=== PATIENT | female | born 1935 | race Caucasian/White ===

== ENCOUNTER → 2016-10-05 | Outpatient (CLI) | payer MEDICARE ==
[2016-10-05 14:53] VITALS: BP 182/82; PULSE 75; RESP 16; TEMP 97.6
--- NOTE | 2016-10-05 15:10 | P.PN ---
Progress Note - Text Patient returns for followup for chronic right-sided low back pain with radiation to right leg down to the ankle with some numbness and shooting pains. Patient underwent bilateral RFA in late 2014 and got excellent relief from those procedures, but pain is now returning. Patient continues on Tylenol and NSAIDs medications for pain with good relief. Patient denies adverse drug effects from medications. Today, pt denies new-onset weakness, bowel/bladder incontinence, or any other signs or symptoms of cauda equina syndrome. There are no signs of acute intoxication, and no indications of medication diversion or overuse. In addition to above, 13-point review of systems is also negative for chest pain , shortness of breath, changes in vision, changes in hearing, new onset weakness , abdominal pain, diarrhea, extreme fatigue, malaise, fever, skin changes, homicidal or suicidal ideation, or bowel or bladder incontinence. 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 At the L4-L5 and L5-S1 levels there are postsurgical changes from laminectomy with severe neural foraminal stenosis compressing and compression of the exiting nerve roots at the L4-L5 level with severe stenosis of the right neural foramen at the L5-S1 level with compression of the exiting right L5 nerve root. Assessment: 1. lumbar spondylosis without myelopathy 2. chronic pain syndrome 3. SIJ dysfunction Plan: 1. Explanation: Opioid and psychological risk scores were reviewed. Diagnoses , prognoses, and multiple treatment options including but not limited to physical therapy, interventional therapies, adjuvant medical therapies, narcotic medication therapies, and surgery were discussed with the patient and all questions were answered to the patient's satisfaction. 2. Opioid agreement: no opioids prescribed today 3. Counseling: The patient was counseled extensively on BODY MASS INDEX, EXERCISE. Specifically, the patient was instructed regarding the importance of weight control, and exercise in the context of both chronic pain and overall health. 4. Procedures: R lumbar RFA only, then consider caudal BROOKS vs. right sided TFESI for L5 level 5. Consultations: None 6. Investigations: None 7. Medications: none prescribed 8. Disposition: f/u for procedure as scheduled PQRS measures: 1-Patient's medications are documented in the chart. 2-Tobacco use is negative 3-Patient has not had a pneumococcal vaccine. 4-Advanced care planning discussed, patient unable to give. 5-Opioid contract NOT signed with the patient as no opioids given. 6-Pain positive, follow-up visit or procedure scheduled 7-Patient's blood pressure measured and documented, and patient will follow up with the primary care due to hypertension. 8-Patient's weight was measured, and body mass index ABOVE the normal limits, and counseling was done. Patient instructed to follow up with PCP. 9-Patient WAS NOT identified as an unhealthy alcohol user.
== END | disposition home or self-care (01) ==
LOC: PNWHC3 14:27
PROVIDERS: ATTEND Anesthesiology
DX: M47.816 Spondylosis without myelopathy or radiculopathy, lumbar region (principal); G89.4 Chronic pain syndrome; M53.88 Other specified dorsopathies, sacral and sacrococcygeal region; M48.06 Spinal stenosis, lumbar region; I10 Essential (primary) hypertension; Z79.899 Other long term (current) drug therapy
CPT/HCPCS: 99211

== ENCOUNTER 2019-12-11 13:05 | Inpatient (IN) | payer MEDICARE ==
[2019-12-11] MEDS: DONEPEZIL 10 MG TAB PO SCH (23:30)
[2019-12-11] MEDS: HEPARIN SODIUM,PORCINE 5,000 UNIT/ML 1 ML VIAL SQ SCH (23:30)
[2019-12-11] MEDS: SODIUM CHLORIDE 0.9% 1,000 ML IV SCH (23:39)
[2019-12-12] MEDS: LEVOTHYROXINE 75 MCG TAB PO SCH ×2 (06:22→11:44)
[2019-12-12 07:21] LABS: Basophils # (A) 0.1 k/uL (0-0.2); Basophils % (A) 1 %; Eosinophils # (A) 0.2 k/uL (0-0.7); Eosinophils % (A) 2 %; HCT 26.6 % (34.0-46.0); HGB 8.2 gm/dL (11.4-16.0); Hypochromasia Slight; Lymphocytes # (A) 0.8 k/uL (1.0-4.8); Lymphocytes % (A) 7 %; MCHC 30.9 g/dL (31.0-37.0); Mean Platelet Volume 8.5; Monocytes # (A) 0.6 k/uL (0-1.0); Monocytes % (A) 5 %; Neutrophils # (A) 9.1 k/uL (1.3-7.7); Neutrophils % (A) 83 %; Platelet Count 356 k/uL (150-450); RBC 2.75 m/uL (3.80-5.40); RDW 13.9 % (11.5-15.5); WBC 10.9 k/uL (3.8-10.6)
[2019-12-12 07:37] LABS: Calcium 7.1 mg/dL (8.4-10.2); Potassium 4.7 mmol/L (3.5-5.1)
[2019-12-12 07:41] LABS: INR 0.9 (<1.2); Prothrombin Time 9.6 sec (9.0-12.0)
[2019-12-12] MEDS: HEPARIN SODIUM,PORCINE 5,000 UNIT/ML 1 ML VIAL SQ SCH ×2 (08:15→23:04)
--- NOTE | 2019-12-12 08:23 | XR ---
EXAMINATION TYPE: XR chest 2V DATE OF EXAM: 12/12/2019 COMPARISON: Prior chest x-ray 12/11/2019 HISTORY: Pneumonia, abnormal chest x-ray TECHNIQUE: Frontal and lateral views of the chest are obtained. FINDINGS: Findings are similar to prior exam, bibasilar increased attenuation is present and may be increased on the right. The left hemidiaphragm is obscured, blunting of the left costophrenic angle i s noted. Heart appears enlarged although patient is rotated which makes accentuate appearance. There is no evident pneumothorax. Mild prominence of interstitium noted. There are overlying cardiac leads. IMPRESSION: Basilar atelectasis versus pneumonia or edema and congestive failure, possible small ass ociated effusion, cardiomegaly
[2019-12-12] MEDS ORDERED: FAMOTIDINE 20 MG/2 ML VIAL IV SCH (09:00)
[2019-12-12] MEDS ORDERED: MECLIZINE 12.5 MG TAB PO PRN (09:51)
[2019-12-12] MEDS: GABAPENTIN 100 MG CAP PO SCH ×3 (10:11→23:04)
[2019-12-12] MEDS: METOPROLOL TARTRATE 25 MG TAB PO SCH ×2 (10:11→23:03)
[2019-12-12] MEDS: NIFEdipine XL 30 MG TAB.ER.24 PO SCH (10:11)
[2019-12-12] MEDS: AZITHROMYCIN 500 MG in SODIUM CHLORIDE 0.9% 250 ML IVPB SCH (10:11)
--- NOTE | 2019-12-12 10:51 | P.HPIM ---
History of Present Illness 84-year-old pleasant female was transferred from [facility] where she presented with worsening weakness. Patient denied any significant cough doesn't have any fever did have leukocytosis was diagnosed with pneumonia because of some mild infiltrate in the right lower lung mccracken patient was started on antibiotics was subsequently admitted to the hospital patient is found to be in renal failure with serum creatinine of 3.9. Upon further questioning patient was diagnosed with chronic kidney disease in month of March patient was told she has GFR of around 26 which has worsened by month of May. Although do not have her baseline available at this time patient was started on IV fluids with some improvement in serum creatinine patient is being continued on these IV fluids patient chest x-ray did show atelectasis, there is a concern about pulmonary edema as well as left and a BNP level. This elevated will obtain echocardiogram. Patient is presently receiving IV fluids and closely monitor. She also has a fracture in the right forearm for which patient has stabilizing cast which was put in on November 29 Review of Systems REVIEW OF SYSTEMS: CONSTITUTIONAL: As mentioned in HPI HEENT: No recent visual problems or hearing problems. Denied any sore throat. CARDIOVASCULAR: No chest pain, orthopnea, PND, no palpitations, no syncope. PULMONARY: No shortness of breath, no cough, no hemoptysis. GASTROINTESTINAL: No diarrhea, no nausea, no vomiting, no abdominal pain. NEUROLOGICAL: No headaches, no weakness, no numbness. HEMATOLOGICAL: Denies any bleeding or petechiae. GENITOURINARY: Denies any burning micturition, frequency, or urgency. MUSCULOSKELETAL/RHEUMATOLOGICAL: Denies any joint pain, swelling, or any muscle pain. ENDOCRINE: Denies any polyuria or polydipsia. The rest of the 14-point review of systems is negative. Past Medical History Past Medical History: Hypertension, Rheumatoid Arthritis (RA), Thyroid Disorder Additional Past Medical History / Comment(s): Pt fell 11/11/14 & Fx left wrist..has cast on History of Any Multi-Drug Resistant Organisms: None Reported Past Surgical History: Appendectomy, Back Surgery, Heart Catheterization, Hernia Repair, Joint Replacement, Orthopedic Surgery, Tonsillectomy Additional Past Surgical History / Comment(s): Left knee replacement , Rt Inguinal Hernia, BACK SURGERY- SPURS REMOVED Past Anesthesia/Blood Transfusion Reactions: No Reported Reaction Past Psychological History: Anxiety Smoking Status: Never smoker Past Alcohol Use History: Rare Additional Past Alcohol Use History / Comment(s): occ. beer Past Drug Use History: None Reported - Past Family History Sister(s) Family Medical History: Cancer Additional Family Medical History / Comment(s): ONE SISTER LUNG CA-ANOTHER SISTER LEUKEMIA ,SISTER HAD BREAST & BOWEL CA Brother(s) Family Medical History: Cancer Additional Family Medical History / Comment(s): ONE BROTHER LIVER CA- ANOTHER BROTHER BONE CA Medications and Allergies Home Medications Medication Instructions Recorded Confirmed Type Donepezil [Aricept] 10 mg PO HS 10/15/14 12/11/19 History Levothyroxine Sodium [Synthroid] 112.5 mcg PO SUWE 10/05/16 12/11/19 History Calcium Carbonate/Vitamin D3 1 tab PO DAILY 10/28/16 12/11/19 History [Calcium 600-Vit D3 400 Tablet] Gabapentin [Neurontin] 300 mg PO TID 10/28/16 12/11/19 History Multivitamins, Thera [Multivitamin 1 tab PO DAILY 10/28/16 12/11/19 History (formulary)] Levothyroxine Sodium [Synthroid] 75 mcg PO MOTUTHFRSA 12/11/19 12/11/19 History Meclizine HCl 12.5 mg PO DAILY PRN 12/11/19 12/11/19 History Metoprolol Tartrate [Lopressor] 12.5 mg PO BID 12/11/19 12/11/19 History NIFEdipine XL [Procardia XL] 30 mg PO BID 12/11/19 12/11/19 History diphenhydrAMINE HCL 25 mg PO DAILY PRN 12/11/19 12/11/19 History hydrALAZINE HCL [Apresoline] 50 mg PO TID 12/12/19 12/12/19 History Allergies Allergy/AdvReac Type Severity Reaction Status Date / Time No Known Allergies Allergy Verified 10/28/16 12:09 Physical Exam Vitals: Vital Signs Temp Pulse Resp BP Pulse Ox 12/12/19 08:00 97.4 F L 87 16 145/61 96 12/12/19 03:52 78 18 12/12/19 03:51 97.4 F L 78 18 122/60 90 L 12/12/19 00:00 98.0 F 75 18 120/58 92 L 12/11/19 22:06 97.9 F 76 18 119/59 93 L 12/11/19 22:00 75 18 Intake and Output 12/11/19 12/12/19 12/12/19 22:59 06:59 14:59 Intake Total 375 Output Total 50 Balance 375 -50 Intake: Intake, IV Titration 375 Amount Sodium Chloride 0.9% 1, 375 000 ml @ 75 mls/hr IV . [id number] [facility] Rx#:[id number] Output: Emesis 50 Other: Voiding Method Toilet Toilet # Voids 1 1 Weight 48.988 kg 51.1 kg PHYSICAL EXAMINATION: GENERAL: The patient is alert and oriented x3, not in any acute distress. Well developed, well nourished. HEENT: Pupils are round and equally reacting to light. EOMI. No scleral icterus. No conjunctival pallor. Normocephalic, atraumatic. No pharyngeal erythema. No thyromegaly. CARDIOVASCULAR: S1 and S2 present. No murmurs, rubs, or gallops. PULMONARY: Chest is clear to auscultation, no wheezing or crackles. ABDOMEN: Soft, nontender, nondistended, normoactive bowel sounds. No palpable organomegaly. MUSCULOSKELETAL: No joint swelling or deformity. EXTREMITIES: No cyanosis, clubbing, or pedal edema. NEUROLOGICAL: Gross neurological examination did not reveal any focal deficits. SKIN: No rashes. Results CBC & Chem 7: 12/12/19 06:51 12/12/19 06:51 Labs: Abnormal Lab Results - Last 24 Hours (Table) 12/12/19 12/12/19 Range/Units 06:51 06:51 WBC 10.9 H (3.8-10.6) k/uL RBC 2.75 L (3.80-5.40) m/uL Hgb 8.2 L (11.4-16.0) gm/dL Hct 26.6 L (34.0-46.0) % MCHC 30.9 L (31.0-37.0) g/dL Neutrophils # 9.1 H (1.3-7.7) k/uL Lymphocytes # 0.8 L (1.0-4.8) k/uL Sodium 136 L (137-145) mmol/L Chloride 110 H (98-107) mmol/L Carbon Dioxide 16 L (22-30) mmol/L BUN 53 H (7-17) mg/dL Creatinine 3.49 H (0.52-1.04) mg/dL Glucose 123 H (74-99) mg/dL Calcium 7.1 L (8.4-10.2) mg/dL AST 51 H (14-36) U/L Thrombosis Risk Factor Assmnt - Choose All That Apply Any of the Below Risk Factors Present?: No Other Risk Factors: Yes Each Risk Factor Represents 3 Points: Age 75 years or older Other congenital or acquired thrombophilia - If yes, enter type in comment: No Thrombosis Risk Factor Assessment Total Risk Factor Score: 3 Thrombosis Risk Factor Assessment Level: Moderate Risk Assessment and Plan Plan: -Generalized weakness and tiredness: Unsure of the exact etiology probably can be related to worsening renal failure. Nephrology was consulted continue with IV fluids -Chronic kidney disease: Patient appears to have stage IV chronic disease from her history etiology is not known at this time -Possibly acute renal failure: Continue with IV fluids -Chest x-ray findings of possible pulmonary edema I'll obtain a BNP was elevated obtain echocardiogram patient clinically at this point of time does not appear to be in heart failure exacerbation is low possibility of pneumonia infectious disease was consulted yesterday to leave the decision of creation of antibiotics to ID -Falls: Secondary to generalized weakness and is related muscle atrophy -Hyperthyroidism -hypertension -Peripheral neuropathy: Etiology is back pain -DVT prophylaxis with heparin
--- NOTE | 2019-12-12 11:58 | XR ---
Right wrist HISTORY: Wrist fracture 4 views the right wrist Distal diaphyseal right radial fracture is noted in cast, there is anatomic alignment. Suspect some l ocal sclerosis, periosteal reaction consistent with fracture healing. Bone mineralization is reduced. Arthropathy noted in the right wrist and hand. IMPRESSION: Orthopedic follow-up.
[2019-12-12] MEDS: SODIUM CHLORIDE 0.9% 1,000 ML IV SCH (12:42)
--- NOTE | 2019-12-12 12:59 | P.CNOR ---
History of Present Illness - [facility] Consult date: 12/12/19 Consult reason: fracture History of present illness: Patient is an 84-year-old female who was transferred to [facility] from [facility] for multiple lab abnormalities and severe fatigue and muscle weakness. She was admitted under internal medicine, multiple medical specialties having consulted. It was noted she had a splint on her right forearm, she explained that she had a fracture involving the forearm that occurred after a fall on November 28. Our orthopedic team was then consult. Patient was evaluated today at bedside, she is resting comfortably. She has had a couple bouts of nausea and vomiting since being admitted. Her forearm she states feeling better with the splint that's currently in place. She states that she did see an orthopedic doctor in his office and was placed in that splint after the fall. She has another follow-up scheduled next week with him. She has no other orthopedic complaints at this time. Review of Systems Constitutional: Reports as per HPI Past Medical History Past Medical History: Hypertension, Rheumatoid Arthritis (RA), Thyroid Disorder Additional Past Medical History / Comment(s): Pt fell 11/11/14 & Fx left wrist..has cast on History of Any Multi-Drug Resistant Organisms: None Reported Past Surgical History: Appendectomy, Back Surgery, Heart Catheterization, Hernia Repair, Joint Replacement, Orthopedic Surgery, Tonsillectomy Additional Past Surgical History / Comment(s): Left knee replacement , Rt Inguinal Hernia, BACK SURGERY- SPURS REMOVED Past Anesthesia/Blood Transfusion Reactions: No Reported Reaction Past Psychological History: Anxiety Smoking Status: Never smoker Past Alcohol Use History: Rare Additional Past Alcohol Use History / Comment(s): occ. beer Past Drug Use History: None Reported - Past Family History Sister(s) Family Medical History: Cancer Additional Family Medical History / Comment(s): ONE SISTER LUNG CA-ANOTHER SISTER LEUKEMIA ,SISTER HAD BREAST & BOWEL CA Brother(s) Family Medical History: Cancer Additional Family Medical History / Comment(s): ONE BROTHER LIVER CA- ANOTHER BROTHER BONE CA Medications and Allergies Home Medications Medication Instructions Recorded Confirmed Type Donepezil [Aricept] 10 mg PO HS 10/15/14 12/11/19 History Levothyroxine Sodium [Synthroid] 112.5 mcg PO SUWE 10/05/16 12/11/19 History Calcium Carbonate/Vitamin D3 1 tab PO DAILY 10/28/16 12/11/19 History [Calcium 600-Vit D3 400 Tablet] Gabapentin [Neurontin] 300 mg PO TID 10/28/16 12/11/19 History Multivitamins, Thera [Multivitamin 1 tab PO DAILY 10/28/16 12/11/19 History (formulary)] Levothyroxine Sodium [Synthroid] 75 mcg PO MOTUTHFRSA 12/11/19 12/11/19 History Meclizine HCl 12.5 mg PO DAILY PRN 12/11/19 12/11/19 History Metoprolol Tartrate [Lopressor] 12.5 mg PO BID 12/11/19 12/11/19 History NIFEdipine XL [Procardia XL] 30 mg PO BID 12/11/19 12/11/19 History diphenhydrAMINE HCL 25 mg PO DAILY PRN 12/11/19 12/11/19 History hydrALAZINE HCL [Apresoline] 50 mg PO TID 12/12/19 12/12/19 History Allergies Allergy/AdvReac Type Severity Reaction Status Date / Time No Known Allergies Allergy Verified 10/28/16 12:09 Physical Examination Right upper extremity: Long-arm posterior splint is in good position and condition with Noman bandage fixation. Minimal soft tissue swelling present in the hand. Sensation to light touch both distal and proximal to the splinter intact. She is able to wiggle all fingers with no difficulty. No significant tenderness with palpation throughout the distal radius and proximal forearm. Results - Labs Labs: Abnormal Lab Results - Last 24 Hours (Table) 12/12/19 12/12/19 Range/Units 06:51 06:51 WBC 10.9 H (3.8-10.6) k/uL RBC 2.75 L (3.80-5.40) m/uL Hgb 8.2 L (11.4-16.0) gm/dL Hct 26.6 L (34.0-46.0) % MCHC 30.9 L (31.0-37.0) g/dL Neutrophils # 9.1 H (1.3-7.7) k/uL Lymphocytes # 0.8 L (1.0-4.8) k/uL Sodium 136 L (137-145) mmol/L Chloride 110 H (98-107) mmol/L Carbon Dioxide 16 L (22-30) mmol/L BUN 53 H (7-17) mg/dL Creatinine 3.49 H (0.52-1.04) mg/dL Glucose 123 H (74-99) mg/dL Calcium 7.1 L (8.4-10.2) mg/dL AST 51 H (14-36) U/L H & H 12/12/19 Range/Units 06:51 Hgb 8.2 L (11.4-16.0) gm/dL Hct 26.6 L (34.0-46.0) % Coagulation 12/12/19 Range/Units 06:51 INR 0.9 (<1.2) Result Diagrams: 12/12/19 06:51 12/12/19 06:51 - Diagnostic results Wrist/Hand x-ray: report reviewed (X-rays were done of the right wrist that i ncluded most of the forearm. X-rays demonstrate a minimally displaced distal third ulnar shaft fracture), image reviewed Assessment and Plan Assessment: Minimally displaced distal third ulnar shaft fracture Multiple medical comorbidities Plan: I was able to discuss the case, including with physical exam findings and imaging studies maintain Dr. Shi. No orthopedic surgical intervention recommended at this time Continue use of the posterior arm splint at this time. Avoid excessive use of the right upper extremity Patient follow-up with the orthopedic surgeon in [place] after discharge Recommend icing along with [id number] we will be available for any further questions regarding patient, thank you for the consult Time with Patient: Less than 30
--- NOTE | 2019-12-12 18:00 | ECHOF ---
Referral Reason:Congestive heart failure MEASUREMENTS -------- HEIGHT: 149.9 cm WEIGHT: 48.5 kg BP: IVSd: 1.1 cm (0.6 - 1.1) LVIDd: 4.0 cm (3.9 - 5.3) LVPWd: 1.1 cm (0.6 - 1.1) EDV(Teich): 70 ml IVSs: 1.3 cm LVIDs: 3.2 cm LVPWs: 1.2 cm %IVS Thck: 17 % ESV(Teich): 41 ml EF(Teich): 41 % %FS: 20 % SV(Teich): 28 ml LA Diam: 4.5 cm (2.7 - 3.8) LALs A4C: 4.5 cm LAAs A4C: 15.6 cm LAESV A-L A4C: 45 ml LAESV MOD A4C: 44 ml LALs A2C: 4.2 cm LAAs A2C: 13.2 cm LAESV A-L A2C: 36 ml LAESV MOD A2C: 34 ml LAESV(A-L): 42 ml LAESV Index (A-L): 29.90 ml/m Ao Diam: 2.8 cm (2.0 - 3.7) LA Diam: 4.1 cm (2.7 - 3.8) AV Cusp: 1.5 cm (1.5 - 2.6) EPSS: 0.6 cm MV E Fadi: 1.05 m/s MV DecT: 224 ms MV Dec Mcduffie: 4.7 m/s MV A Fadi: 1.32 m/s MV E/A Ratio: 0.80 MV PHT: 65 ms TR Vmax: 1.19 m/s TR maxP.66 mmHg RAP: 5.00 mmHg RVSP: 10.66 mmHg MV EF SLOPE: 37.61 mm/s (70 - 150) MV EXCURSION: 15.62 mm (> 18.000) FINDINGS -------- Sinus rhythm. This was a technically good study. The left ventricular size is normal. There is mild concentric left ventricular hypertrophy. Overa ll left ventricular systolic function is normal with, an EF between 55 - 60 %. The diastolic fillin g pattern is normal for the age of the patient 19.78. The right ventricle is normal in size. The left atrium is mildly dilated. LA is midly dilated 29-33ml/m2. The right atrial size is normal. The aortic valve is trileaflet, and appears structurally normal. No aortic stenosis or regurgitation. Mild mitral regurgitation is present. Mild tricuspid regurgitation present. Right ventricular systolic pressure is normal at < 35 mmHg. There is no pulmonic regurgitation present. The aortic root size is normal. Echo free space represents a pericardial fat pad. CONCLUSIONS -------- 1. The left ventricular size is normal. 2. There is mild concentric left ventricular hypertrophy. 3. Overall left ventricular systolic function is normal with, an EF between 55 - 60 %. 4. The diastolic filling pattern is normal for the age of the patient 19.78 5. The right ventricle is normal in size. 6. The left atrium is mildly dilated. 7. LA is midly dilated 29-33ml/m2. 8. The right atrial size is normal. 9. Mild mitral regurgitation is present. 10. Mild tricuspid regurgitation present. 11. Echo free space represents a pericardial fat pad. LIMEROCK TOWER LOADER: Kyra Sauceda RDCS
--- NOTE | 2019-12-12 19:07 | CONS ---
CONSULTATION REASON FOR CONSULT: Renal failure. HISTORY OF PRESENT ILLNESS: Patient is an 84-year-old female with history of CKD, NKF stage 4, who follows with a zigzag appliquer in [place]. The patient was admitted to the hospital as a transfer from [place]. She states that she was feeling weak and complains of nausea and vomiting. She had decreased oral intake. The patient denied any fever or chills. No abdominal pain. Patient states that she started seeing a zigzag appliquer in March of 2019, at which time her GFR was about 31 mL/minute; and when she was last seen in May, her GFR had declined to about 26 mL/minute. No recent changes in medications. When patient was admitted to [place], her serum creatinine was noted to be 3.7 mg/dL, and this morning it is at 3.49. The patient is maintained on IV fluids. She has not had any significant diarrhea. PAST MEDICAL HISTORY: Hypertension, CKD, rheumatoid arthritis, hypothyroidism. PAST SURGICAL HISTORY: Appendectomy, back surgery, cardiac catheterization, left knee arthroplasty, right inguinal hernia repair, tonsillectomy. SOCIAL HISTORY: Negative for smoking, drug abuse or alcohol abuse. MEDICATIONS: Medications prior to admission included Synthroid, Aricept, vitamin D, Neurontin, Lopressor, Procardia, hydralazine, diphenhydramine. ALLERGIES: NONE. PHYSICAL EXAMINATION: Patient is currently comfortable, awake, not in any acute distress. Blood pressure was 145/61, heart rate 87 per minute. Patient is afebrile. EXAMINATION OF THE HEART: S1 and S2. EXAMINATION OF LUNGS: Bilateral breath sounds are heard. ABDOMEN: Soft, non-tender. Examination of lower extremities shows no significant edema. FINANCIAL RECRUITER exam is grossly intact. Patient has a cast on her right forearm. LABS: Labs show sodium 136, potassium 4.7, chloride 110. CO2 is 16. BUN 53, creatinine 3.49, hemoglobin 8.2 g/dL. ProBNP 6880. ASSESSMENT: 1. Acute kidney injury on top of chronic kidney disease, mostly prerenal. Continue with IV fluids. 2. Chronic kidney disease, stage 4. 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 I will repeat another urinalysis. Given her advanced age, I am not sure if she will benefit from a kidney biopsy. Patient will need to follow up with her primary zigzag appliquer. She has an appointment in December. 3. Metabolic acidosis, non gap, mostly associated with renal failure. Will add oral sodium bicarb. 4. Chronic kidney disease, stage 4. Etiology not clear. Check UA. Quantify proteinuria if persistent and follow up with primary zigzag appliquer. 5. Nausea and decreased oral intake. Low suspicion for uremia. However, if renal function does not improve and patient's symptoms persist, we may need to consider subtle uremia. 6. Possible pneumonia, maintained on antibiotics. 7. Fracture, right forearm, of the third ulnar shaft, currently in an arm splint. PLAN: Continue IV fluids. Repeat labs in a.m. Add oral sodium bicarb. Check UA and urine/protein/creatinine ratio. Thank you for this consultation. Will continue to follow the patient with you during her hospitalization. MMODL / IJN: [id number] /
--- NOTE | 2019-12-12 22:32 | P.CONS ---
History of Present Illness - Reason for Consult Consult date: 12/12/19 Gram-negative bacteremia Requesting physician: Cody E Sheet - Chief Complaint Generalized weakness and nausea x few days - History of Present Illness Patient is 84 year female with a past medical history significant for chronic kidney disease stage IV in this patient presented to [facility] with complaint of generalized weakness and feeling nauseated and vomiting. No significant abdominal pain had did have decreased oral intake the patient denies having any fever or any chills no chest pain or shortness of breath or cough no diarrhea or significant urinary symptoms patient was evaluated at that facility and apparently she was noticed to have her creatinine is up to 3.7 compared chest x-ray was suggestive some infiltrate patient subsequently has been transferred to [facility] for further management at that time patient presented to this facility the blood culture that was done at [facility] were positive for gram-negative bacilli the patient has been started on Rocephin and infection disease was consulted for further management of antibiotic therapy patient overall is not a good historian so most information has been extracted from review the chart and talking to the nursing staff, patient also history of right wrist fracture currently being treated with a cast Review of Systems Positive point has been mentioned in the HPI rest of the systems are negative Past Medical History Past Medical History: Hypertension, Rheumatoid Arthritis (RA), Thyroid Disorder Additional Past Medical History / Comment(s): Pt fell 11/11/14 & Fx left wrist..has cast on History of Any Multi-Drug Resistant Organisms: None Reported Past Surgical History: Appendectomy, Back Surgery, Heart Catheterization, Hernia Repair, Joint Replacement, Orthopedic Surgery, Tonsillectomy Additional Past Surgical History / Comment(s): Left knee replacement , Rt Inguinal Hernia, BACK SURGERY- SPURS REMOVED Past Anesthesia/Blood Transfusion Reactions: No Reported Reaction Past Psychological History: Anxiety Smoking Status: Never smoker Past Alcohol Use History: Rare Additional Past Alcohol Use History / Comment(s): occ. beer Past Drug Use History: None Reported - Past Family History Sister(s) Family Medical History: Cancer Additional Family Medical History / Comment(s): ONE SISTER LUNG CA-ANOTHER SISTER LEUKEMIA ,SISTER HAD BREAST & BOWEL CA Brother(s) Family Medical History: Cancer Additional Family Medical History / Comment(s): ONE BROTHER LIVER CA- ANOTHER BROTHER BONE CA Medications and Allergies Home Medications Medication Instructions Recorded Confirmed Type Donepezil [Aricept] 10 mg PO HS 10/15/14 12/11/19 History Levothyroxine Sodium [Synthroid] 112.5 mcg PO SUWE 10/05/16 12/11/19 History Calcium Carbonate/Vitamin D3 1 tab PO DAILY 10/28/16 12/11/19 History [Calcium 600-Vit D3 400 Tablet] Gabapentin [Neurontin] 300 mg PO TID 10/28/16 12/11/19 History Multivitamins, Thera [Multivitamin 1 tab PO DAILY 10/28/16 12/11/19 History (formulary)] Levothyroxine Sodium [Synthroid] 75 mcg PO MOTUTHFRSA 12/11/19 12/11/19 History Meclizine HCl 12.5 mg PO DAILY PRN 12/11/19 12/11/19 History Metoprolol Tartrate [Lopressor] 12.5 mg PO BID 12/11/19 12/11/19 History NIFEdipine XL [Procardia XL] 30 mg PO BID 12/11/19 12/11/19 History diphenhydrAMINE HCL 25 mg PO DAILY PRN 12/11/19 12/11/19 History hydrALAZINE HCL [Apresoline] 50 mg PO TID 12/12/19 12/12/19 History Allergies Allergy/AdvReac Type Severity Reaction Status Date / Time No Known Allergies Allergy Verified 10/28/16 12:09 Physical Exam Vitals: Vital Signs Temp Pulse Resp BP Pulse Ox 12/12/19 08:00 97.4 F L 87 16 145/61 96 12/12/19 03:52 78 18 12/12/19 03:51 97.4 F L 78 18 122/60 90 L 12/12/19 00:00 98.0 F 75 18 120/58 92 L 12/11/19 22:06 97.9 F 76 18 119/59 93 L 12/11/19 22:00 75 18 Intake and Output 12/11/19 12/12/19 12/12/19 22:59 06:59 14:59 Intake Total 375 Output Total 50 Balance 375 -50 Intake: Intake, IV Titration 375 Amount Sodium Chloride 0.9% 1, 375 000 ml @ 75 mls/hr IV . [id number] [facility] Rx#:[id number] Output: Emesis 50 Other: Voiding Method Toilet Toilet # Voids 1 1 Weight 48.988 kg 51.1 kg GENERAL DESCRIPTION: An elderly female lying in bed, no distress. No tachypnea or accessory muscle of respiration use. HEENT: Shows Pallor , no scleral icterus. Oral mucous membrane is dry. No pharyngeal erythema or thrush NECK: Trachea central, no thyromegaly. LUNGS: Unlabored breathing. Decreased breath sounds at the base. No wheeze or crackle. HEART: S1, S2, regular rate and rhythm. No loud murmur ABDOMEN: Soft, no tenderness , guarding or rigidity, no organomegaly EXTREMITIES: No edema of feet. SKIN: No rash, no masses palpable. NEUROLOGICAL: The patient is awake, alert, oriented x2, mood and affect normal. Results CBC & Chem 7: 12/12/19 06:51 12/12/19 06:51 Labs: Abnormal Lab Results - Last 24 Hours (Table) 12/12/19 12/12/19 Range/Units 06:51 06:51 WBC 10.9 H (3.8-10.6) k/uL RBC 2.75 L (3.80-5.40) m/uL Hgb 8.2 L (11.4-16.0) gm/dL Hct 26.6 L (34.0-46.0) % MCHC 30.9 L (31.0-37.0) g/dL Neutrophils # 9.1 H (1.3-7.7) k/uL Lymphocytes # 0.8 L (1.0-4.8) k/uL Sodium 136 L (137-145) mmol/L Chloride 110 H (98-107) mmol/L Carbon Dioxide 16 L (22-30) mmol/L BUN 53 H (7-17) mg/dL Creatinine 3.49 H (0.52-1.04) mg/dL Glucose 123 H (74-99) mg/dL Calcium 7.1 L (8.4-10.2) mg/dL AST 51 H (14-36) U/L Assessment and Plan Assessment: 1- patient presented to the hospital with generalized weakness and nausea and vomiting decreased oral intake and this patient along with evidence of gram- negative bacteremia source is likely abdominal with a question of possible UTI versus gallbladder disease, clinically doubt pneumonia (1) Gram-negative bacteremia Current Visit: Yes Status: Acute Code(s): R78.81 - BACTEREMIA SNOMED Code(s): 219687844528 Plan: 1- blood cultures will be repeated and we'll try to get information from [facility] on status positive blood culture 2-check an ultrasound of the abdominal 3-Rocephin 2 g daily We will follow on clinical condition and cultures to further adjust medication if needed Thank you for this consultation will follow this patient with you Time with Patient: Greater than 30
[2019-12-12 22:34] LABS: Appearance,Urine Clear (Clear); Bacteria,Urine Rare /hpf; Bilirubin,Urine Negative (Negative); Blood,Urine Trace (Negative); Color,Urine Light Yellow; Glucose,Urine (UA) Negative (Negative); Hyaline Casts,Urine 1 /lpf (0-2); Ketones,Urine Negative (Negative); Leukocyte Esterase,Urine Moderate (Negative); Mucus,Urine Rare /hpf; Nitrite,Urine Negative (Negative); Protein,Urine 2+ (Negative); RBC,Urine 3 /hpf (0-5); Specific Gravity,Urine 1.009 (1.001-1.035); Squamous Epithelial Cell,Urine 1 /hpf (0-4); Urobilinogen,Urine <2.0 mg/dL (<2.0); WBC,Urine 10 /hpf (0-5)
[2019-12-12] MEDS: DONEPEZIL 10 MG TAB PO SCH (23:03)
[2019-12-12] MEDS: SODIUM BICARBONATE TAB 650 MG TAB PO SCH (23:04)
[2019-12-13] MEDS: LEVOTHYROXINE 75 MCG TAB PO SCH (06:22)
--- NOTE | 2019-12-13 08:27 | US ---
EXAMINATION TYPE: US abdomen complete DATE OF EXAM: 12/13/2019 COMPARISON: NONE CLINICAL HISTORY: gram negative bacteremia. EXAM MEASUREMENTS: Liver Length: 13.9 cm Gallbladder Wall: 0.9 cm CBD: 0.6 cm Spleen: 8.9 cm Right Kidney: 10.6 x 4.4 x 5.1 cm Left Kidney: 11.3 x 4.8 x 5.4 cm Pancreas: prominent duct at 0.4 cm Liver: cyst near gallbladder fossa measures 1.0 x 0.9 x 1.3. Gallbladder: area of gallbladder appears thickened wall with mass effect at superior portion measure s 1.9 x 1.9 cm, unclear whether this is part of gallbladder or separate. Evidence for sonographic Oakes's sign: No CBD: wnl Spleen: wnl Right Kidney: No hydronephrosis or masses seen Left Kidney: No hydronephrosis or masses seen Upper IVC: wnl Abd Aorta: wnl Incidental note is made of bilateral pleural effusions. IMPRESSION: 1. Gallbladder wall is markedly thickened measuring 9 mm correlate for cholecystitis. Mucosal lesion not excluded. 2. Hepatic cyst. 3. Mild prominence of the pancreatic duct.
[2019-12-13] MEDS: CALCIUM CARB-VIT D 500MG-200UN 1 EACH TAB PO SCH (08:50)
[2019-12-13] MEDS: GABAPENTIN 100 MG CAP PO SCH ×3 (08:50→21:53)
[2019-12-13] MEDS: METOPROLOL TARTRATE 25 MG TAB PO SCH ×2 (08:50→21:52)
[2019-12-13] MEDS: SODIUM BICARBONATE TAB 650 MG TAB PO SCH ×2 (08:50→21:52)
[2019-12-13] MEDS: NIFEdipine XL 30 MG TAB.ER.24 PO SCH (08:50)
[2019-12-13] MEDS: HEPARIN SODIUM,PORCINE 5,000 UNIT/ML 1 ML VIAL SQ SCH ×2 (08:51→21:53)
[2019-12-13] MEDS: AZITHROMYCIN 500 MG in SODIUM CHLORIDE 0.9% 250 ML IVPB SCH (08:54)
[2019-12-13 08:56] LABS: Basophils # (A) 0.1 k/uL (0-0.2); Basophils % (A) 1 %; Eosinophils # (A) 0.3 k/uL (0-0.7); Eosinophils % (A) 2 %; HCT 24.6 % (34.0-46.0); HGB 7.8 gm/dL (11.4-16.0); Lymphocytes # (A) 0.7 k/uL (1.0-4.8); Lymphocytes % (A) 6 %; MCH 30.3 pg (25.0-35.0); MCHC 31.7 g/dL (31.0-37.0); MCV 95.7 fL (80.0-100.0); Mean Platelet Volume 8.7; Monocytes # (A) 0.6 k/uL (0-1.0); Monocytes % (A) 5 %; Neutrophils # (A) 9.3 k/uL (1.3-7.7); Neutrophils % (A) 85 %; Platelet Count 410 k/uL (150-450); RBC 2.57 m/uL (3.80-5.40); RDW 13.8 % (11.5-15.5); WBC 10.9 k/uL (3.8-10.6)
[2019-12-13] MEDS ORDERED: FAMOTIDINE 20 MG TAB PO SCH (09:00)
[2019-12-13 09:05] LABS: Calcium 6.8 mg/dL (8.4-10.2); Potassium 4.3 mmol/L (3.5-5.1)
--- NOTE | 2019-12-13 10:14 | XR ---
EXAMINATION TYPE: XR chest 1V DATE OF EXAM: 12/13/2019 COMPARISON: 12/12/2019 HISTORY: Shortness of breath TECHNIQUE: Single frontal view of the chest is obtained. FINDINGS: Heart is enlarged and there is left lower lobe infiltrate and small bilateral effusions. C oarsened interstitium is seen. No sizable pneumothorax. Diffuse osteopenia right-sided rib deformitie s suggest previous fracture. No pneumothorax. Chronic deformity of the right humerus. IMPRESSION: 1. Stable left lower lobe infiltrate and small bilateral effusions. Mild venous congestion in the dif ferential diagnosis similar to the prior exam
--- NOTE | 2019-12-13 10:37 | P.PN ---
Subjective Patient was transferred from [facility] after patient presented there with nausea vomiting diarrhea was being treated for pneumonia although the evidence is not clear at and patient is later found to have bacteremia with the gram-negative bacilli, because of which abdominal ultrasound was often which showed cholecystitis and Gen. surgery was consulted. Patient also has acute renal failure and possibly chronic kidney disease patient was evaluated by nephrology and patient the creatinine did improve from 2.5-2.5 with IV fluids patient may have some component of acute tubular necrosis patient had an echocardiogram which is within normal limits. Patient had an elevated BNP Objective - Vital Signs Vital signs: Vital Signs Temp 98.0 F 12/13/19 03:38 Pulse 72 12/13/19 03:38 Resp 18 12/13/19 03:38 BP 134/63 12/13/19 03:38 Pulse Ox 93 L 12/13/19 03:38 Intake & Output 12/12/19 12/13/19 12/13/19 18:59 06:59 18:59 Intake Total 775 330 Output Total 50 325 Balance 725 5 Weight 53 kg Intake: IV 250 250 Azithromycin 500 mg In 250 250 Sodium Chloride 0.9% 250 ml @ 250 mls/hr IVPB DAILY [facility] Rx#:[id number] Intake, IV Titration 525 80 Amount Sodium Chloride 0.9% 1, 525 80 000 ml @ 75 mls/hr IV . [id number] [facility] Rx#:[id number] Output: Urine 325 Emesis 50 Other: Voiding Method Toilet Toilet # Voids 2 1 1 # Bowel Movements 0 - Exam PHYSICAL EXAMINATION: GENERAL: The patient is alert and oriented x3, not in any acute distress. Well developed, well nourished. HEENT: Pupils are round and equally reacting to light. EOMI. No scleral icterus. No conjunctival pallor. Normocephalic, atraumatic. No pharyngeal erythema. No thyromegaly. CARDIOVASCULAR: S1 and S2 present. No murmurs, rubs, or gallops. PULMONARY: Mild bilateral rhonchi was appreciated. ABDOMEN: Soft, nontender, nondistended, normoactive bowel sounds. No palpable organomegaly. MUSCULOSKELETAL: No joint swelling or deformity. EXTREMITIES: No cyanosis, clubbing, or pedal edema. NEUROLOGICAL: Gross neurological examination did not reveal any focal deficits. SKIN: No rashes. - Labs CBC & Chem 7: 12/13/19 08:08 12/13/19 08:08 Labs: Abnormal Lab Results - Last 24 Hours (Table) 12/12/19 12/12/19 12/12/19 Range/Units 06:51 22:11 22:11 WBC (3.8-10.6) k/uL RBC (3.80-5.40) m/uL Hgb (11.4-16.0) gm/dL Hct (34.0-46.0) % Neutrophils # (1.3-7.7) k/uL Lymphocytes # (1.0-4.8) k/uL Chloride (98-107) mmol/L Carbon Dioxide (22-30) mmol/L BUN (7-17) mg/dL Creatinine (0.52-1.04) mg/dL Glucose (74-99) mg/dL Calcium (8.4-10.2) mg/dL C-Reactive Protein 136.6 H (<10.0) mg/L Urine Protein 2+ H (Negative) Urine Blood Trace H (Negative) Ur Leukocyte Esterase Moderate H (Negative) Urine WBC 10 H (0-5) /hpf Urine Bacteria Rare H (None) /hpf Urine Mucus Rare H (None) /hpf U Random Total Protein 253 H (<12) mg/dL 12/13/19 12/13/19 Range/Units 08:08 08:08 WBC 10.9 H (3.8-10.6) k/uL RBC 2.57 L (3.80-5.40) m/uL Hgb 7.8 L (11.4-16.0) gm/dL Hct 24.6 L (34.0-46.0) % Neutrophils # 9.3 H (1.3-7.7) k/uL Lymphocytes # 0.7 L (1.0-4.8) k/uL Chloride 113 H (98-107) mmol/L Carbon Dioxide 19 L (22-30) mmol/L BUN 42 H (7-17) mg/dL Creatinine 2.57 H (0.52-1.04) mg/dL Glucose 101 H (74-99) mg/dL Calcium 6.8 L (8.4-10.2) mg/dL C-Reactive Protein (<10.0) mg/L Urine Protein (Negative) Urine Blood (Negative) Ur Leukocyte Esterase (Negative) Urine WBC (0-5) /hpf Urine Bacteria (None) /hpf Urine Mucus (None) /hpf U Random Total Protein (<12) mg/dL Assessment and Plan Plan: -Acute cholecystitis: Continue with Rocephin patient has gram-negative bacteremia, Gen. surgery was consulted for possible cholecystectomy -Sepsis secondary to gram-negative bacteremia will obtain repeat blood cultures in the -Chronic kidney disease: Patient appears to have stage IV chronic disease from her history etiology is not known at this time -Possibly acute renal failure: We'll azotemia along with possibly acute tubular necrosis improved with serum creatinine with IV fluids which will be continued -Rhonchi bilaterally: We'll repeat the chest x-ray make sure patient doesn't have any pulmonary edema because of the fluids -Falls: Secondary to generalized weakness and is related muscle atrophy along with the above-mentioned infection -Hyperthyroidism -hypertension -Peripheral neuropathy: Etiology is back pain -DVT prophylaxis with heparin
[2019-12-13] MEDS ORDERED: METOCLOPRAMIDE 5 MG/ML 2 ML VIAL IVP STA (11:35)
[2019-12-13] MEDS ORDERED: DARBEPOETIN ALFA 60 MCG/0.3 ML SYRINGE SQ SCH (12:00)
--- NOTE | 2019-12-13 12:01 | P.GSCN ---
History of Present Illness Consult date: 12/13/19 History of present illness: CHIEF COMPLAINT: Abdominal pain HISTORY OF PRESENT ILLNESS: This is a 84-year-old female with a known history of chronic kidney disease stage IV, hypertension, rheumatoid arthritis and hypothyroidism. She has also had prior history of appendectomy and hernia repair. She presented to [facility] with complaints of generalized weakness and feeling nauseated and vomiting. She had evidence of pneumonia. She had a positive blood culture with gram-negative bacilli and then was transferred to [facility]. Patient does report some right upper abdominal pain. She denies any fever, chills or sweats. Abdominal ultrasound had shown some gallbladder wall thickening. Patient seen and examined with Dr. Liao PAST MEDICAL HISTORY: See list. PAST SURGICAL HISTORY: See list. MEDICATIONS: See list. ALLERGIES: See list. SOCIAL HISTORY: No illicit drug use. REVIEW OF SYSTEMS: CONSTITUTIONAL: Denies fever or chills. HEENT: Denies blurred vision, vision changes, or eye pain. Denies hemoptysis CARDIOVASCULAR: Denies chest pain or pressure. RESPIRATORY: No shortness of breath. GASTROINTESTINAL: See HPI for pertinent findings HEMATOLOGIC: Denies bleeding disorders. GENITOURINARY: Denies any blood in urine or increased urinary frequency. SKIN: Denies pruitis. Denies rash. PHYSICAL EXAM: VITAL SIGNS: Reviewed GENERAL: Well-developed in no acute distress. HEENT: No sclera icterus. Extraocular movements grossly intact. Moist buccal mucosa. Head is atraumatic, normocephalic. No nasal drainage. ABDOMEN: Soft. Tenderness in the right upper abdomen. Nondistended NEUROLOGIC: Alert and oriented. Cranial nerves II through XII grossly intact. LABORATORY DATA: WBC 10.9 hemoglobin 7.8 creatinine 2.57 AST 51 ALT 33 IMAGING: Abdominal ultrasound gallbladder wall is markedly thickened measuring 9 mm brian elate for cholecystitis. Mucosal lesion not excluded. Hepatic cysts. Mild prominence of the pancreatic duct. ASSESSMENT: 1. Acute cholecystitis with gallbladder wall thickening noted on abdominal ultrasound 2. Gram-negative bacteremia 3. Nausea and vomiting PLAN: -Plan for laparoscopic cholecystectomy today with Dr. Liao -Transfuse patient with 1 unit of blood prior to surgery -Antibiotics per ID Physician Real Estate Site Analyst note has been reviewed by physician. Signing provider agrees with the documented findings, assessment, and plan of care. Past Medical History Past Medical History: Hypertension, Rheumatoid Arthritis (RA), Thyroid Disorder Additional Past Medical History / Comment(s): Pt fell 11/11/14 & Fx left wrist ..has cast on History of Any Multi-Drug Resistant Organisms: None Reported Past Surgical History: Appendectomy, Back Surgery, Heart Catheterization, Hernia Repair, Joint Replacement, Orthopedic Surgery, Tonsillectomy Additional Past Surgical History / Comment(s): Left knee replacement , Rt Inguinal Hernia, BACK SURGERY- SPURS REMOVED Past Anesthesia/Blood Transfusion Reactions: No Reported Reaction Past Psychological History: Anxiety Smoking Status: Never smoker Past Alcohol Use History: Rare Additional Past Alcohol Use History / Comment(s): occ. beer Past Drug Use History: None Reported - Past Family History Sister(s) Family Medical History: Cancer Additional Family Medical History / Comment(s): ONE SISTER LUNG CA-ANOTHER SISTER LEUKEMIA ,SISTER HAD BREAST & BOWEL CA Brother(s) Family Medical History: Cancer Additional Family Medical History / Comment(s): ONE BROTHER LIVER CA- ANOTHER BROTHER BONE CA Medications and Allergies Home Medications Medication Instructions Recorded Confirmed Type Donepezil [Aricept] 10 mg PO HS 10/15/14 12/11/19 History Levothyroxine Sodium [Synthroid] 112.5 mcg PO SUWE 10/05/16 12/11/19 History Calcium Carbonate/Vitamin D3 1 tab PO DAILY 10/28/16 12/11/19 History [Calcium 600-Vit D3 400 Tablet] Gabapentin [Neurontin] 300 mg PO TID 10/28/16 12/11/19 History Multivitamins, Thera [Multivitamin 1 tab PO DAILY 10/28/16 12/11/19 History (formulary)] Levothyroxine Sodium [Synthroid] 75 mcg PO MOTUTHFRSA 12/11/19 12/11/19 History Meclizine HCl 12.5 mg PO DAILY PRN 12/11/19 12/11/19 History Metoprolol Tartrate [Lopressor] 12.5 mg PO BID 12/11/19 12/11/19 History NIFEdipine XL [Procardia XL] 30 mg PO BID 12/11/19 12/11/19 History diphenhydrAMINE HCL 25 mg PO DAILY PRN 12/11/19 12/11/19 History hydrALAZINE HCL [Apresoline] 50 mg PO TID 12/12/19 12/12/19 History Allergies Allergy/AdvReac Type Severity Reaction Status Date / Time No Known Allergies Allergy Verified 10/28/16 12:09 Surgical - Exam Vital Signs Pulse Resp 75 18 12/11/19 22:00 12/11/19 22:00 Results - Labs 12/13/19 08:08 12/13/19 08:08 Abnormal Lab Results - Last 24 Hours (Table) 12/12/19 12/12/19 12/12/19 Range/Units 06:51 22:11 22:11 WBC (3.8-10.6) k/uL RBC (3.80-5.40) m/uL Hgb (11.4-16.0) gm/dL Hct (34.0-46.0) % Neutrophils # (1.3-7.7) k/uL Lymphocytes # (1.0-4.8) k/uL Chloride (98-107) mmol/L Carbon Dioxide (22-30) mmol/L BUN (7-17) mg/dL Creatinine (0.52-1.04) mg/dL Glucose (74-99) mg/dL Calcium (8.4-10.2) mg/dL C-Reactive Protein 136.6 H (<10.0) mg/L Urine Protein 2+ H (Negative) Urine Blood Trace H (Negative) Ur Leukocyte Esterase Moderate H (Negative) Urine WBC 10 H (0-5) /hpf Urine Bacteria Rare H (None) /hpf Urine Mucus Rare H (None) /hpf U Random Total Protein 253 H (<12) mg/dL 12/13/19 12/13/19 Range/Units 08:08 08:08 WBC 10.9 H (3.8-10.6) k/uL RBC 2.57 L (3.80-5.40) m/uL Hgb 7.8 L (11.4-16.0) gm/dL Hct 24.6 L (34.0-46.0) % Neutrophils # 9.3 H (1.3-7.7) k/uL Lymphocytes # 0.7 L (1.0-4.8) k/uL Chloride 113 H (98-107) mmol/L Carbon Dioxide 19 L (22-30) mmol/L BUN 42 H (7-17) mg/dL Creatinine 2.57 H (0.52-1.04) mg/dL Glucose 101 H (74-99) mg/dL Calcium 6.8 L (8.4-10.2) mg/dL C-Reactive Protein (<10.0) mg/L Urine Protein (Negative) Urine Blood (Negative) Ur Leukocyte Esterase (Negative) Urine WBC (0-5) /hpf Urine Bacteria (None) /hpf Urine Mucus (None) /hpf U Random Total Protein (<12) mg/dL Diabetes panel 12/13/19 Range/Units 08:08 Sodium 138 (137-145) mmol/L Potassium 4.3 (3.5-5.1) mmol/L Chloride 113 H (98-107) mmol/L Carbon Dioxide 19 L (22-30) mmol/L BUN 42 H (7-17) mg/dL Creatinine 2.57 H (0.52-1.04) mg/dL Glucose 101 H (74-99) mg/dL Calcium 6.8 L (8.4-10.2) mg/dL Calcium panel 12/13/19 Range/Units 08:08 Calcium 6.8 L (8.4-10.2) mg/dL Pituitary panel 12/13/19 Range/Units 08:08 Sodium 138 (137-145) mmol/L Potassium 4.3 (3.5-5.1) mmol/L Chloride 113 H (98-107) mmol/L Carbon Dioxide 19 L (22-30) mmol/L BUN 42 H (7-17) mg/dL Creatinine 2.57 H (0.52-1.04) mg/dL Glucose 101 H (74-99) mg/dL Calcium 6.8 L (8.4-10.2) mg/dL Adrenal panel 12/13/19 Range/Units 08:08 Sodium 138 (137-145) mmol/L Potassium 4.3 (3.5-5.1) mmol/L Chloride 113 H (98-107) mmol/L Carbon Dioxide 19 L (22-30) mmol/L BUN 42 H (7-17) mg/dL Creatinine 2.57 H (0.52-1.04) mg/dL Glucose 101 H (74-99) mg/dL Calcium 6.8 L (8.4-10.2) mg/dL
--- NOTE | 2019-12-13 12:53 | PN ---
PROGRESS NOTE Patient is seen for followup for chronic kidney disease and acute kidney injury. She is maintained on IV fluids, renal function has improved with creatinine down to 2.57 from 3.49 yesterday. PHYSICAL EXAMINATION: On examination today, blood pressure 156/74, heart rate 71 per minute, she is afebrile. Examination of the heart S1, S2. Examination of the lungs, bilateral breath sounds are heard. Abdomen is soft, nontender. Examination of lower extremities shows no evidence of edema. SACK SORTER exam grossly intact. LABS: Show sodium 138, potassium 4.3, chloride 113, CO2 is 19, BUN 42, creatinine 2.57, hemoglobin 7.8 g/dL. ASSESSMENT: 1. Acute kidney injury, prerenal currently improved. Patient received IV fluids initially. Currently she is not on any IV fluids. 2. Chronic kidney disease NKF stage IV. Etiology nephrosclerosis versus underlying chronic GN. Patient UA did show proteinuria with protein creatinine ratio of 5.6 g. Patient should follow up with her primary [facility] consultant with concern regarding possible biopsy and workup for proteinuria. 3. Metabolic acidosis associated with renal failure currently improved, patient is maintained on sodium bicarb. 4. Nausea, possibly related to the gallbladder, being followed. PLAN: Continue to encourage increased oral intake. Follow up as outpatient with primary [facility] consultant regarding concern for possible kidney biopsy versus workup for proteinuria. MMODL / IJN: [id number] /
[2019-12-13] MEDS ORDERED: LIDOCAINE 1% INJ 10MG/ML (20 ML MDV) ONE (15:20)
[2019-12-13] MEDS ORDERED: fentaNYL (PF) 50 MCG/ML 2 ML AMP ONE (15:20)
[2019-12-13] MEDS ORDERED: IV FLUID CONTINUATION 1,000 ML IV ONE (15:20)
[2019-12-13] MEDS ORDERED: ePHEDrine SULFATE/0.9% NACL/PF 50 MG/5 ML SYRINGE IV ONE (15:20)
[2019-12-13] MEDS ORDERED: SUCCINYLCHOLINE CHLORIDE 100 MG/5 ML SYR IV ONE (15:20)
[2019-12-13] MEDS ORDERED: PROPOFOL 10 MG/ML 20 ML VIAL IV ONE (15:20)
[2019-12-13] MEDS ORDERED: BUPIVACAINE (PF) 0.25% 30 ML VIAL SQ ONE (15:39)
[2019-12-13] MEDS ORDERED: LACTATED RINGERS 1,000 ML IV ONE (15:47)
[2019-12-13] MEDS ORDERED: HYDROmorphone 1 MG/ML 1 ML SYRINGE IVP PRN (15:51)
--- NOTE | 2019-12-13 15:51 | P.OP ---
Date of Procedure: 12/13/19 Preoperative Diagnosis: Acute cholecystitis Postoperative Diagnosis: Acute cholecystitis Procedure(s) Performed: Laparoscopic cholecystectomy Anesthesia: WILMER Surgeon: Mykel Liao Estimated Blood Loss (ml): 5 Pathology: other (Gallbladder) Condition: stable Disposition: PACU Description of Procedure: The patient was placed on the operating table. The patient received a general endotracheal tube anesthesia. The patients abdomen was prepped and draped in the usual sterile fashion. Through an infraumbilical stab incision, the fascia of the anterior abdominal wall was grasped with a pair of Kochers and then the Veress needle was placed in the peritoneal cavity. Position of the Veress needle was confirmed with positive drop test. The abdomen was then insufflated. After adequate insufflation, the 10 mm trocar was placed in the peritoneal cavity. Following this the laparoscope was placed in the peritoneal cavity. The patient was placed in the head-up, right side up position and then a 5 mm trocar was placed in the right lateral and right subcostal position under direct visualization. A 8 mm trocar was placed in the epigastric position. The gallbladder was grasped in the fundus and infundibulum. Traction on the gallbladder was placed in the lateral and the cephalad positions. The triangle of Calot was visualized.. The cystic duct was bluntly dissected until the union of the cystic duct and common bile duct was seen. A critical view of safety was achieved. The cystic duct was then divided and sealed with the Harmonic scissors. A PDS Endoloop was then placed throughout the cystic duct stump. The cystic artery divided and sealed with the Harmonic scissors. The gallbladder was then removed from the liver bed using Harmonic scissors. The gallbladder was then extracted through the epigastric port site. Operative field was checked for any bleeding spots and Harmonic scissors was used to coagulate the liver bed. The abdomen was irrigated. The trocars were removed. The skin was closed using interrupted 3-0 Vicryl suture. Dermabond dressing were applied. The patient tolerated the procedure well.
--- NOTE | 2019-12-13 17:32 | PN ---
PROGRESS NOTE DATE OF SERVICE: 12/13/2019 REASON FOR FOLLOWUP: Gram-negative bacteremia. INTERVAL HISTORY: The patient is currently afebrile. The patient is feeling slightly better today. The patient denies having any chest pain or shortness of breath or cough. No nausea, no further vomiting. Has been complaining of some diarrhea. PHYSICAL EXAMINATION: Blood pressure 156/74 with a pulse of 72, temperature 96.5. She is 97% on 2 L nasal cannula. General description is an elderly female lying in bed in no distress. RESPIRATORY SYSTEM: Unlabored breathing. Clear to auscultation anteriorly. HEART: S1, S2. Regular rate and rhythm. ABDOMEN: Soft. No tenderness. LABS: Hemoglobin is 7.1, white count 10.9, BUN of 42, creatinine is 2.57. DIAGNOSTIC IMPRESSION AND PLAN: Patient with Gram-negative bacteremia, source likely acute cholecystitis in this patient who is status post cholecystectomy. Patient is covered with Rocephin; to continue while waiting for the culture to finalize and monitor clinical course closely. MMODL / IJN: [id number] /
[2019-12-13 21:33] LABS: % Iron Saturation 17.96 (12.00-45.00)
[2019-12-13] MEDS: DONEPEZIL 10 MG TAB PO SCH (21:53)
[2019-12-14] MEDS: LEVOTHYROXINE 75 MCG TAB PO SCH ×2 (06:19→07:06)
[2019-12-14] MEDS: HEPARIN SODIUM,PORCINE 5,000 UNIT/ML 1 ML VIAL SQ SCH ×2 (08:41→21:00)
[2019-12-14] MEDS: GABAPENTIN 100 MG CAP PO SCH ×3 (08:42→21:00)
[2019-12-14] MEDS: SODIUM BICARBONATE TAB 650 MG TAB PO SCH ×2 (08:42→21:00)
[2019-12-14] MEDS: NIFEdipine XL 30 MG TAB.ER.24 PO SCH (08:42)
[2019-12-14] MEDS: METOPROLOL TARTRATE 25 MG TAB PO SCH ×2 (08:42→21:00)
[2019-12-14] MEDS: FAMOTIDINE 20 MG/2 ML VIAL IV SCH (08:42)
[2019-12-14] MEDS: CALCIUM CARB-VIT D 500MG-200UN 1 EACH TAB PO SCH (08:42)
[2019-12-14 11:15] LABS: Potassium 4.1 mmol/L (3.5-5.1)
--- NOTE | 2019-12-14 11:17 | P.PN ---
Subjective Patient was transferred from [facility] after patient presented there with nausea vomiting diarrhea was being treated for pneumonia although the evidence is not clear at and patient is later found to have bacteremia with the gram-negative bacilli, because of which abdominal ultrasound was often which showed cholecystitis and Gen. surgery was consulted. Patient also has acute renal failure and possibly chronic kidney disease patient was evaluated by nephrology and patient the creatinine did improve from 2.5-2.5 with IV fluids patient may have some component of acute tubular necrosis patient had an echocardiogram which is within normal limits. Patient had an elevated BNP 12/14/2019 Patient is status post cholecystectomy, basic metabolic profile is not available from today patient is complaining of significant diarrhea probably secondary to antibiotics and patient will be started on Questran. Patient will be transferred out of stepdown unit Constitutional: Denied any fatigue denied any fever. Cardio vascular: denied any chest pain, palpitations Gastrointestinal does have diarrhea Pulmonary: No shortness of breath Neurologic denied any new focal deficits All inpatient medications were reviewed and appropriate changes in these medications as dictated in the interval history and assessment and plan. Objective - Vital Signs Vital signs: Vital Signs Temp 96.9 F L 12/14/19 08:00 Pulse 81 12/14/19 08:00 Resp 18 12/14/19 04:00 BP 160/77 12/14/19 08:00 Pulse Ox 97 12/14/19 08:00 Intake & Output 12/13/19 12/14/19 12/14/19 18:59 06:59 18:59 Intake Total 710 130 Output Total 10 300 200 Balance 700 -300 -70 Weight 53 kg Intake: IV 400 Intake, IV Titration 10 Amount Lactated Ringers 1,000 ml 10 @ 0 mls/hr IV .STK-MED ONE Rx#:[id number] Oral 120 Blood Product 310 Rc As-1 Unit 310 [id number] Output: Urine 300 200 Estimated Blood Loss 10 Other: Voiding Method Toilet Toilet # Voids 2 1 # Bowel Movements 2 1 - Exam PHYSICAL EXAMINATION: GENERAL: The patient is alert and oriented x3, not in any acute distress. Well developed, well nourished. HEENT: Pupils are round and equally reacting to light. EOMI. No scleral icterus. No conjunctival pallor. Normocephalic, atraumatic. No pharyngeal erythema. No thyromegaly. CARDIOVASCULAR: S1 and S2 present. No murmurs, rubs, or gallops. PULMONARY: Mild bilateral rhonchi was appreciated. ABDOMEN: Soft, nontender, nondistended, normoactive bowel sounds. No palpable organomegaly. MUSCULOSKELETAL: No joint swelling or deformity. EXTREMITIES: No cyanosis, clubbing, or pedal edema. NEUROLOGICAL: Gross neurological examination did not reveal any focal deficits. SKIN: No rashes. - Labs CBC & Chem 7: 12/13/19 08:08 12/14/19 10:29 Labs: Abnormal Lab Results - Last 24 Hours (Table) 12/12/19 12/13/19 12/13/19 Range/Units 06:51 08:08 11:49 Chloride (98-107) mmol/L Carbon Dioxide (22-30) mmol/L BUN (7-17) mg/dL Creatinine (0.52-1.04) mg/dL Glucose (74-99) mg/dL Calcium (8.4-10.2) mg/dL Iron 37 L (50-170) ug/dL TIBC 206 L (228-460) ug/dL Procalcitonin 5.98 H (0.02-0.09) ng/mL Crossmatch See Detail 12/14/19 Range/Units 10:29 Chloride 113 H (98-107) mmol/L Carbon Dioxide 21 L (22-30) mmol/L BUN 32 H (7-17) mg/dL Creatinine 2.20 H (0.52-1.04) mg/dL Glucose 111 H (74-99) mg/dL Calcium 7.0 L (8.4-10.2) mg/dL Iron (50-170) ug/dL TIBC (228-460) ug/dL Procalcitonin (0.02-0.09) ng/mL Crossmatch Microbiology - Last 24 Hours (Table) 12/13/19 08:08 Blood Culture - Preliminary Blood No Growth after 24 hours Assessment and Plan Plan: -Acute cholecystitis: Continue with Rocephin patient has gram-negative bacteremia, is status post cholecystectomy -Continued significant diarrhea probably because of antibiotics patient was started on Questran -Sepsis secondary to gram-negative bacteremia will obtain repeat blood cultures in the -Chronic kidney disease: Patient appears to have stage IV chronic disease from her history etiology is not known at this time -Possibly acute renal failure: We'll azotemia along with possibly acute tubular necrosis improved with serum creatinine with IV fluids which will be continued -Falls: Secondary to generalized weakness and is related muscle atrophy along with the above-mentioned infection -Hyperthyroidism -hypertension -Peripheral neuropathy: Etiology is back pain -DVT prophylaxis with heparin
--- NOTE | 2019-12-14 13:37 | CDI ---
Documentation Clarification Form Date: 12/14/2019 CDS: Yola Henning RN, CCDS Admit Date: 12/11/2019 1332 Patient Name: Stephenie Camargo ATTENTION: The Clinical Documentation Specialists (CDI) and [facility] Coding Staff appreciate your assistance in clarifying documentation. Please respond to the clarification below the line at the bottom and electronically sign. The CDI & [facility] Coding staff will review the response and follow-up if needed. Please note: Queries are made part of the Legal Health Record. If you have any questions, please contact the author of this message via ITS. Dr. Mclean Please render your opinion on the clinical significance of the patients hemoglobin/hematocrit levels. History/Risk Factors: CLAU with ATN on CKD stage 4, HTN, RA Clinical indicators: Iron Studies 12/12: Iron 37, TIBC 206, % Saturation 17.96 12/11-12/12 Hgb 8.2/7.8 HCT: 26.6/24.6 BUN 53/42/32 Creatinine 3.49/2.57/2.2. 12/12 OR report: Acute Cholecystitis with Lap Choley EBL 5 cc Treatment: 12/12 1 U PC TX Aranesp 60 mg SQ Q7D In order to capture the severity of condition, please clarify if the labs/clinical indicators signify: Acute blood loss anemia Acute on chronic blood loss anemia Chronic blood loss anemia Iron deficiency anemia Nutritional anemia Anemia of chronic kidney disease Anemia of chronic disease Unable to determine Other, please specify Please continue to document in your progress notes and discharge summary in order to capture severity of illness and risk of mortality. Include clinical findings that support your diagnosis. MTDD
--- NOTE | 2019-12-14 13:38 | P.PN ---
Subjective Progress Note Date: 12/14/19 CHIEF COMPLAINT: Abdominal pain HISTORY OF PRESENT ILLNESS: Patient status post laparoscopic cholecystectomy. Her pain is controlled. She denies any nausea or vomiting. She is tolerating regular diet. Afebrile PHYSICAL EXAM: VITAL SIGNS: Reviewed. GENERAL: Well-developed in no acute distress. HEENT: No sclera icterus. Extraocular movements grossly intact. Moist buccal mucosa. Head is atraumatic, normocephalic. ABDOMEN: Soft. Nondistended. NEUROLOGIC: Alert and oriented. Cranial nerves II through XII grossly intact. ASSESSMENT: 1. Acute cholecystitis status post laparoscopic cholecystectomy. Postop day #1 2. Gram-negative bacteremia PLAN: -Patient is surgically stable for discharge -Patient to follow-up with Dr. Liao in 1 week Physician In File Operator note has been reviewed by physician. Signing provider agrees with the documented findings, assessment, and plan of care. Objective - Vital Signs Vital signs: Vital Signs Temp 96.9 F L 12/14/19 08:00 Pulse 81 12/14/19 08:00 Resp 18 12/14/19 04:00 BP 160/77 12/14/19 08:00 Pulse Ox 97 12/14/19 08:00 Intake & Output 12/13/19 12/14/19 12/14/19 18:59 06:59 18:59 Intake Total 710 130 Output Total 10 300 200 Balance 700 -300 -70 Weight 53 kg Intake: IV 400 Intake, IV Titration 10 Amount Lactated Ringers 1,000 ml 10 @ 0 mls/hr IV .STK-MED ONE Rx#:[id number] Oral 120 Blood Product 310 Rc As-1 Unit 310 [id number] Output: Urine 300 200 Estimated Blood Loss 10 Other: Voiding Method Toilet Toilet # Voids 2 1 # Bowel Movements 2 1 - Labs CBC & Chem 7: 12/13/19 08:08 12/14/19 10:29 Labs: Abnormal Lab Results - Last 24 Hours (Table) 12/12/19 12/13/19 12/13/19 Range/Units 06:51 08:08 11:49 Chloride (98-107) mmol/L Carbon Dioxide (22-30) mmol/L BUN (7-17) mg/dL Creatinine (0.52-1.04) mg/dL Glucose (74-99) mg/dL Calcium (8.4-10.2) mg/dL Iron 37 L (50-170) ug/dL TIBC 206 L (228-460) ug/dL Procalcitonin 5.98 H (0.02-0.09) ng/mL Crossmatch See Detail 12/14/19 Range/Units 10:29 Chloride 113 H (98-107) mmol/L Carbon Dioxide 21 L (22-30) mmol/L BUN 32 H (7-17) mg/dL Creatinine 2.20 H (0.52-1.04) mg/dL Glucose 111 H (74-99) mg/dL Calcium 7.0 L (8.4-10.2) mg/dL Iron (50-170) ug/dL TIBC (228-460) ug/dL Procalcitonin (0.02-0.09) ng/mL Crossmatch Microbiology - Last 24 Hours (Table) 12/13/19 11:18 Blood Culture - Preliminary Blood No Growth after 24 hours 12/13/19 08:08 Blood Culture - Preliminary Blood No Growth after 24 hours
--- NOTE | 2019-12-14 16:35 | PN ---
PROGRESS NOTE Patient is seen for followup for acute kidney injury on top of chronic kidney disease. She is currently comfortable. Patient is status post cholecystectomy yesterday. She states she is feeling better. Her renal function continues to improve. PHYSICAL EXAMINATION: On examination today, blood pressure is 160/77, heart rate 81 per minute. She is afebrile. EXAMINATION OF THE HEART: S1 and S2. EXAMINATION OF LUNGS: Bilateral breath sounds are heard. ABDOMEN: Soft, non-tender. Examination of lower extremities shows no significant edema. SCREEDMAN exam is grossly intact. LABS: Labs show sodium of 142, potassium 4.1, chloride 113. CO2 is 21, BUN 32, creatinine 2.2. Hemoglobin was 7.8 yesterday. ASSESSMENT: 1. Acute kidney injury, prerenal, currently improved. 2. Chronic kidney disease, stage 4, secondary to underlying chronic GN with evidence of 5 grams of proteinuria. Patient follows with a sales administration manager as outpatient. She is advised to continue to follow up with her primary sales administration manager regarding workup of proteinuria and possible kidney biopsy. 3. Cholecystitis, status post laparoscopic cholecystectomy yesterday on 12/13/2019. 4. Metabolic acidosis, now improved. 5. Anemia of chronic disease. No active bleeding noted. Maintained on Aranesp. PLAN: Continue with oral sodium bicarb. Continue antibiotics. Repeat labs in a.m. MMODL / IJN: [id number] /
[2019-12-14 17:36] LABS: Glucose,Whole Blood 89 mg/dL (75-99)
[2019-12-14] MEDS: CHOLESTYRAMINE (WITH SUGAR) 4 GM PACKET PO SCH ×2 (18:03→18:05)
[2019-12-14] MEDS: DONEPEZIL 10 MG TAB PO SCH (21:00)
--- NOTE | 2019-12-14 23:14 | PN ---
PROGRESS NOTE DATE OF SERVICE: 12/14/2019 REASON FOR FOLLOWUP: Acute cholecystitis and Gram-negative bacteremia. INTERVAL HISTORY: The patient is currently afebrile. The patient is breathing comfortably. Pain to the right upper quadrant area, but no worsening. No chest pain, shortness of breath or cough. No diarrhea. PHYSICAL EXAMINATION: Blood pressure 164/72 with a pulse of 73, temperature 96.9. She is 97% on room air. General description is an elderly female up in the chair in no distress. RESPIRATORY SYSTEM: Unlabored breathing. Clear to auscultation anteriorly. HEART: S1, S2. Regular rate and rhythm. ABDOMEN: Soft. Mildly tender. No guarding or rigidity. LABS: BUN of 32, creatinine 2.20. Blood culture done here has been negative. DIAGNOSTIC IMPRESSION AND PLAN: Patient with Gram-negative bacteremia. Source is likely acute cholecystitis, status post cholecystectomy. Will try to get the final on the blood culture from the [facility]. Will keep the patient on Rocephin at this point; the patient has clinically responded. Continue with supportive care. MMODL / IJN: [id number] /
[2019-12-15] MEDS: LEVOTHYROXINE 75 MCG TAB PO SCH ×2 (06:41)
[2019-12-15] MEDS: CALCIUM CARB-VIT D 500MG-200UN 1 EACH TAB PO SCH (08:57)
[2019-12-15] MEDS: HEPARIN SODIUM,PORCINE 5,000 UNIT/ML 1 ML VIAL SQ SCH ×2 (08:57→20:03)
[2019-12-15] MEDS: SODIUM BICARBONATE TAB 650 MG TAB PO SCH ×2 (08:57→20:03)
[2019-12-15] MEDS: FAMOTIDINE 20 MG/2 ML VIAL IV SCH (08:57)
[2019-12-15] MEDS: NIFEdipine XL 30 MG TAB.ER.24 PO SCH (08:57)
[2019-12-15] MEDS: GABAPENTIN 100 MG CAP PO SCH ×3 (08:58→22:50)
[2019-12-15] MEDS: METOPROLOL TARTRATE 25 MG TAB PO SCH (08:58)
[2019-12-15] MEDS: CHOLESTYRAMINE (WITH SUGAR) 4 GM PACKET PO SCH ×3 (08:58→17:29)
[2019-12-15 09:31] VITALS: RESP 16
[2019-12-15 10:06] LABS: MCH 29.3 pg (25.0-35.0); MCHC 31.4 g/dL (31.0-37.0); MCV 93.2 fL (80.0-100.0); Mean Platelet Volume 8.6; Platelet Count 454 k/uL (150-450); RBC 3.32 m/uL (3.80-5.40); WBC 12.9 k/uL (3.8-10.6)
[2019-12-15 10:08] LABS: Calcium 7.6 mg/dL (8.4-10.2); HGB 9.7 gm/dL (11.4-16.0); Potassium 4.2 mmol/L (3.5-5.1)
[2019-12-15] MEDS ORDERED: hydrALAZINE HCL 25 MG TAB PO PRN (11:41)
[2019-12-15] MEDS ORDERED: ACETAMINOPHEN TAB 325 MG TAB PO PRN (11:43)
--- NOTE | 2019-12-15 12:34 | P.PN ---
Subjective Patient was transferred from [facility] after patient presented there with nausea vomiting diarrhea was being treated for pneumonia although the evidence is not clear at and patient is later found to have bacteremia with the gram-negative bacilli, because of which abdominal ultrasound was often which showed cholecystitis and Gen. surgery was consulted. Patient also has acute renal failure and possibly chronic kidney disease patient was evaluated by nephrology and patient the creatinine did improve from 2.5-2.5 with IV fluids patient may have some component of acute tubular necrosis patient had an echocardiogram which is within normal limits. Patient had an elevated BNP 12/14/2019 Patient is status post cholecystectomy, basic metabolic profile is not available from today patient is complaining of significant diarrhea probably secondary to antibiotics and patient will be started on Questran. Patient will be transferred out of stepdown unit. 12/15/2019 Patient is still having diarrhea but improved compared to yesterday because of cholestyramine, C. diff will be obtained if C. diff is negative, patient will be given Lomotil. Her diarrhea is probably because of antibiotics. Patient blood pressure is very high on increased dose of nifedipine and will use by mouth hydralazine as needed only for blood pressure greater than 191/110. Patient is off IV fluids and the patient's serum creatinine today is 2 Constitutional: Denied any fatigue denied any fever. Cardio vascular: denied any chest pain, palpitations Gastrointestinal does have diarrhea Pulmonary: No shortness of breath Neurologic denied any new focal deficits All inpatient medications were reviewed and appropriate changes in these medications as dictated in the interval history and assessment and plan. Objective - Vital Signs Vital signs: Vital Signs Temp 98.1 F 12/15/19 08:00 Pulse 74 12/15/19 08:00 Resp 16 12/15/19 08:00 BP 210/99 12/15/19 08:00 Pulse Ox 96 12/15/19 08:00 Intake & Output 12/14/19 12/15/19 12/15/19 18:59 06:59 18:59 Intake Total 370 Output Total 600 500 Balance -230 -500 Weight 50.5 kg Intake: Intake, IV Titration 10 Amount Lactated Ringers 1,000 ml 10 @ 0 mls/hr IV .STK-MED ONE Rx#:[id number] Oral 360 Output: Urine 600 500 Other: Voiding Method Toilet Toilet # Voids 3 1 # Bowel Movements 2 - Exam PHYSICAL EXAMINATION: GENERAL: The patient is alert and oriented x3, not in any acute distress. Well developed, well nourished. HEENT: Pupils are round and equally reacting to light. EOMI. No scleral icterus. No conjunctival pallor. Normocephalic, atraumatic. No pharyngeal erythema. No thyromegaly. CARDIOVASCULAR: S1 and S2 present. No murmurs, rubs, or gallops. PULMONARY: Mild bilateral rhonchi was appreciated. ABDOMEN: Soft, nontender, nondistended, normoactive bowel sounds. No palpable organomegaly. MUSCULOSKELETAL: No joint swelling or deformity. EXTREMITIES: No cyanosis, clubbing, or pedal edema. NEUROLOGICAL: Gross neurological examination did not reveal any focal deficits. SKIN: No rashes. - Labs CBC & Chem 7: 12/15/19 09:10 12/15/19 09:10 Labs: Abnormal Lab Results - Last 24 Hours (Table) 12/15/19 12/15/19 Range/Units 09:10 09:10 WBC 12.9 H (3.8-10.6) k/uL RBC 3.32 L (3.80-5.40) m/uL Hgb 9.7 L D (11.4-16.0) gm/dL Hct 31.0 L (34.0-46.0) % Plt Count 454 H (150-450) k/uL Chloride 113 H (98-107) mmol/L Carbon Dioxide 21 L (22-30) mmol/L BUN 27 H (7-17) mg/dL Creatinine 2.08 H (0.52-1.04) mg/dL Glucose 110 H (74-99) mg/dL Calcium 7.6 L (8.4-10.2) mg/dL Microbiology - Last 24 Hours (Table) 12/13/19 08:08 Blood Culture - Preliminary Blood No Growth after 48 hours 12/13/19 11:18 Blood Culture - Preliminary Blood No Growth after 24 hours Assessment and Plan Plan: -Acute cholecystitis: Continue with Rocephin patient has gram-negative bacteremia, is status post cholecystectomy. Patient will be continued on Rocephin, repeat cultures are negative. -Continued significant diarrhea probably because of antibiotics patient was st arted on Questran -Sepsis secondary to gram-negative bacteremia will obtain repeat blood cultures so for negative -Chronic kidney disease: Patient appears to have stage IV chronic disease from her history etiology is not known at this time - acute renal failure: We'll azotemia along with possibly acute tubular necrosis improved with serum creatinine IV fluids were discontinued by nephrology -Falls: Secondary to generalized weakness and is related muscle atrophy along with the above-mentioned infection -Hyperthyroidism -hypertension -Peripheral neuropathy: Etiology is back pain -DVT prophylaxis with heparin
--- NOTE | 2019-12-15 14:01 | P.PN ---
Subjective Progress Note Date: 12/15/19 CHIEF COMPLAINT: Abdominal pain HISTORY OF PRESENT ILLNESS: Patient seen and examined with Dr. Liao. Patient status post laparoscopic cholecystectomy. Her pain is controlled. She denies any nausea or vomiting. She is having diarrhea. She is tolerating regular diet. Afebrile. She is having elevated blood pressures. Blood pressure medications adjusted by medicine. White count 12.9 hemoglobin 9.7 PHYSICAL EXAM: VITAL SIGNS: Reviewed. GENERAL: Well-developed in no acute distress. HEENT: No sclera icterus. Extraocular movements grossly intact. Moist buccal mucosa. Head is atraumatic, normocephalic. ABDOMEN: Soft. Nondistended. NEUROLOGIC: Alert and oriented. Cranial nerves II through XII grossly intact. ASSESSMENT: 1. Acute cholecystitis status post laparoscopic cholecystectomy. Postop day #2 2. Gram-negative bacteremia PLAN: -Patient is surgically stable for discharge -Patient to follow-up with Dr. Liao in 1 week Physician Hat And Cap Drying Room Attendant note has been reviewed by physician. Signing provider agrees with the documented findings, assessment, and plan of care. Objective - Vital Signs Vital signs: Vital Signs Temp 98.1 F 12/15/19 08:00 Pulse 74 12/15/19 12:00 Resp 16 12/15/19 12:00 BP 201/90 12/15/19 12:00 Pulse Ox 96 12/15/19 08:00 Intake & Output 12/14/19 12/15/19 12/15/19 18:59 06:59 18:59 Intake Total 370 Output Total 600 500 Balance -230 -500 Weight 50.5 kg Intake: Intake, IV Titration 10 Amount Lactated Ringers 1,000 ml 10 @ 0 mls/hr IV .STK-MED ONE Rx#:[id number] Oral 360 Output: Urine 600 500 Other: Voiding Method Toilet Toilet # Voids 3 1 # Bowel Movements 2 - Labs CBC & Chem 7: 12/15/19 09:10 12/15/19 09:10 Labs: Abnormal Lab Results - Last 24 Hours (Table) 12/15/19 12/15/19 Range/Units 09:10 09:10 WBC 12.9 H (3.8-10.6) k/uL RBC 3.32 L (3.80-5.40) m/uL Hgb 9.7 L D (11.4-16.0) gm/dL Hct 31.0 L (34.0-46.0) % Plt Count 454 H (150-450) k/uL Chloride 113 H (98-107) mmol/L Carbon Dioxide 21 L (22-30) mmol/L BUN 27 H (7-17) mg/dL Creatinine 2.08 H (0.52-1.04) mg/dL Glucose 110 H (74-99) mg/dL Calcium 7.6 L (8.4-10.2) mg/dL Microbiology - Last 24 Hours (Table) 12/13/19 11:18 Blood Culture - Preliminary Blood No Growth after 48 hours 12/13/19 08:08 Blood Culture - Preliminary Blood No Growth after 48 hours
--- NOTE | 2019-12-15 14:42 | PN ---
PROGRESS NOTE DATE OF SERVICE: 12/15/2019 REASON FOR FOLLOWUP: Acute cholecystitis with gram-negative bacteremia. INTERVAL HISTORY: Patient is currently afebrile. The patient is feeling better. Breathing comfortably. Denies any chest pain. No shortness of breath or cough. No abdominal pain or any worsening diarrhea. PHYSICAL EXAMINATION: Blood pressure 110/99 with a pulse of 74, temperature 98.1. She is 96% on room air. General description is an elderly female up in the chair in no distress. Respiratory system: Unlabored breathing, decreased breath sounds, no wheeze. Heart S1, S2. Regular rate and rhythm. Abdomen soft, no tenderness. LABS: Hemoglobin 9.7, white count 12.9, BUN of 27, creatinine 2.08. Blood culture has been negative. DIAGNOSTIC IMPRESSION AND PLAN: Patient with Gram-negative bacteremia, source is likely acute cholecystitis status post cholecystectomy. The patient at this time is to continue with IV Rocephin. Will try to get the culture from [place]. Continue supportive care. MMODL / IJN: [id number] /
--- NOTE | 2019-12-15 16:57 | PN ---
PROGRESS NOTE Patient is seen for followup for acute kidney injury on top of chronic kidney disease. She is status post laparoscopic cholecystectomy. Patient's renal function continues to improve. Her serum creatinine is down from 3.4 to 2.08 now. Oral intake has slightly improved, although still on the lower side. The patient is not on any IV fluids currently. PHYSICAL EXAMINATION: On examination today, blood pressure was elevated at 210/99, heart rate of 74 per minute. Patient is afebrile. EXAMINATION OF THE HEART: S1 and S2. EXAMINATION OF LUNGS: Decreased breath sounds at bases. ABDOMEN: Soft, non-tender. Examination of lower extremities shows no evidence of edema. MACARONI MAKER exam is grossly intact. LABS: Labs show sodium 142, potassium 4.2, chloride 113. CO2 is 21, hemoglobin 9.7, serum creatinine 2.08 mg/dL. ASSESSMENT: 1. Acute kidney injury, mostly prerenal, currently improved. Patient is currently not on any IV fluids or diuretics. 2. Chronic kidney disease, stage 4, secondary to most likely underlying chronic GN with evidence of about 5 grams of proteinuria on random protein/creatinine ratio. Maintain followup as outpatient with her primary operations coordinator in [place]. 3. Cholecystitis, status post laparoscopic cholecystectomy on 12/13/2019. 4. Metabolic acidosis, maintained on oral sodium bicarb, now improved. 5. Anemia of chronic disease, currently maintained on Aranesp. 6. Hypertension uncontrolled, maintained on Procardia and p.r.n. hydralazine. Patient was also started on Lopressor 25 mg b.i.d. PLAN: Plan is to change Lopressor to Coreg. Add scheduled dose of hydralazine and repeat labs in a.m. Encourage increased oral intake. MMODL / IJN: [id number] /
[2019-12-15] MEDS: hydrALAZINE HCL 50 MG TAB PO SCH ×2 (17:28→22:50)
[2019-12-15] MEDS: carvediloL 6.25 MG TAB PO SCH (17:28)
[2019-12-15] MEDS: DONEPEZIL 10 MG TAB PO SCH (20:03)
[2019-12-16] MEDS: LEVOTHYROXINE 75 MCG TAB PO SCH ×2 (06:31)
[2019-12-16] MEDS: carvediloL 6.25 MG TAB PO SCH (06:32)
[2019-12-16] MEDS ORDERED: NIFEdipine XL 90 MG TAB.ER.24 PO SCH (09:00)
[2019-12-16] MEDS: hydrALAZINE HCL 50 MG TAB PO SCH (09:12)
[2019-12-16] MEDS: SODIUM BICARBONATE TAB 650 MG TAB PO SCH (09:12)
[2019-12-16] MEDS: GABAPENTIN 100 MG CAP PO SCH (09:12)
[2019-12-16] MEDS: CALCIUM CARB-VIT D 500MG-200UN 1 EACH TAB PO SCH (09:12)
[2019-12-16] MEDS: HEPARIN SODIUM,PORCINE 5,000 UNIT/ML 1 ML VIAL SQ SCH (09:13)
[2019-12-16] MEDS: CHOLESTYRAMINE (WITH SUGAR) 4 GM PACKET PO SCH (09:13)
[2019-12-16 10:12] VITALS: BP 130/61; PULSE 74; TEMP 97.3
--- NOTE | 2019-12-16 10:33 | P.DS ---
Providers Date of admission: 12/11/19 22:01 Attending physician: Gustavo Mclean Consults: 12/11/19 23:06 Consult Physician Routine Consulting Provider: Alex Jansen Consult Reason/Comments: Positive Blood Culture, possible sepsis Do you want consulting provider notified?: Yes, Notify in am 12/11/19 23:08 Consult Physician Routine Consulting Provider: Chasidy Basurto Consult Reason/Comments: CLAU Do you want consulting provider notified?: Yes, Notify in am 12/11/19 23:20 Consult Physician Routine Consulting Provider: Jim Shi Consult Reason/Comments: Right Wrist Fracture Do you want consulting provider notified?: Yes, Notify in am 12/13/19 09:48 Consult Physician Routine Consulting Provider: Mykel Liao Consult Reason/Comments: Cholecystitis Do you want consulting provider notified?: Yes Primary care physician: Stated None Hospital Course: Patient was transferred from [facility] after patient presented there with nausea vomiting diarrhea was being treated for pneumonia although the evidence is not clear at and patient is later found to have bacteremia with the gram-negative bacilli, because of which abdominal ultrasound was often which showed cholecystitis and Gen. surgery was consulted. Patient also has acute renal failure and possibly chronic kidney disease patient was evaluated by nephrology and patient the creatinine did improve from 2.5-2.5 with IV fluids patient may have some component of acute tubular necrosis patient had an echocardiogram which is within normal limits. Patient had an elevated BNP 12/14/2019 Patient is status post cholecystectomy, basic metabolic profile is not available from today patient is complaining of significant diarrhea probably secondary to antibiotics and patient will be started on Questran. Patient will be transferred out of stepdown unit. 12/15/2019 Patient is still having diarrhea but improved compared to yesterday because of cholestyramine, C. diff will be obtained if C. diff is negative, patient will be given Lomotil. Her diarrhea is probably because of antibiotics. Patient blood pressure is very high on increased dose of nifedipine and will use by mouth hydralazine as needed only for blood pressure greater than 191/110. Patient is off IV fluids and the patient's serum creatinine today is 2. 12/16/2019 Patient's IV improved although C. diff was not obtained because the sample was never good. Patient diarrhea is probably secondary to antibiotics. Patient blood pressures well controlled as well. Patient will be discharged today. Patient's serum creatinine improved and patient will follow with her insurance assistant and PCP as an outpatient. PHYSICAL EXAMINATION: GENERAL: The patient is alert and oriented x3, not in any acute distress. Well developed, well nourished. HEENT: Pupils are round and equally reacting to light. EOMI. No scleral icterus. No conjunctival pallor. Normocephalic, atraumatic. No pharyngeal erythema. No thyromegaly. CARDIOVASCULAR: S1 and S2 present. No murmurs, rubs, or gallops. PULMONARY: Chest is clear to auscultation, no wheezing or crackles. ABDOMEN: Soft, nontender, nondistended, normoactive bowel sounds. No palpable organomegaly. MUSCULOSKELETAL: No joint swelling or deformity. EXTREMITIES: No cyanosis, clubbing, or pedal edema. NEUROLOGICAL: Gross neurological examination did not reveal any focal deficits. SKIN: No rashes. Assessment and Plan Plan: -Acute cholecystitis: Patient will be discharged on Ceftin twice a day for 9 more days completing total of 14 day therapy patient has gram-negative bacteremia, is status post cholecystectomy. repeat cultures are negative. -diarrhea probably because of antibiotics improved with Questran -Sepsis secondary to gram-negative bacteremia will obtain repeat blood cultures so for negative -Chronic kidney disease: Patient appears to have stage IV chronic disease from her history etiology is not known at this time - acute renal failure: Prerenal azotemia along with possibly acute tubular necrosis improved with serum creatinine -Falls: Secondary to generalized weakness and is related muscle atrophy along with the above-mentioned infection -Hyperthyroidism -hypertension -Peripheral neuropathy Plan - Discharge Summary New Discharge Prescriptions: New carvediloL [Coreg] 6.25 mg PO BID-W/MEALS #30 tab Sodium Bicarbonate Tab 650 mg PO BID #60 tab Cefuroxime Axetil [Ceftin] 500 mg PO BID 9 Days #18 tab Cholestyramine (with Sugar) [Questran Packet] 4 gm PO TID BETWEEN MEALS PRN #30 packet PRN Reason: Diarrhea Continue Donepezil [Aricept] 10 mg PO HS Levothyroxine Sodium [Synthroid] 112.5 mcg PO SUWE Calcium Carbonate/Vitamin D3 [Calcium 600-Vit D3 400 Tablet] 1 tab PO DAILY Multivitamins, Thera [Multivitamin (formulary)] 1 tab PO DAILY Gabapentin [Neurontin] 300 mg PO TID NIFEdipine XL [Procardia XL] 30 mg PO BID Levothyroxine Sodium [Synthroid] 75 mcg PO MOTUTHFRSA Meclizine HCl 12.5 mg PO DAILY PRN PRN Reason: DIZZINESS hydrALAZINE HCL [Apresoline] 50 mg PO TID Discontinued Metoprolol Tartrate [Lopressor] 12.5 mg PO BID diphenhydrAMINE HCL 25 mg PO DAILY PRN PRN Reason: Allergy Symptoms Discharge Medication List Donepezil [Aricept] 10 mg PO HS 10/15/14 [History] Levothyroxine Sodium [Synthroid] 112.5 mcg PO SUWE 10/05/16 [History] Calcium Carbonate/Vitamin D3 [Calcium 600-Vit D3 400 Tablet] 1 tab PO DAILY 10/28/16 [History] Gabapentin [Neurontin] 300 mg PO TID 10/28/16 [History] Multivitamins, Thera [Multivitamin (formulary)] 1 tab PO DAILY 10/28/16 [History] Levothyroxine Sodium [Synthroid] 75 mcg PO MOTUTHFRSA 12/11/19 [History] Meclizine HCl 12.5 mg PO DAILY PRN 12/11/19 [History] NIFEdipine XL [Procardia XL] 30 mg PO BID 12/11/19 [History] hydrALAZINE HCL [Apresoline] 50 mg PO TID 12/12/19 [History] Cefuroxime Axetil [Ceftin] 500 mg PO BID 9 Days #18 tab 12/16/19 [Rx] Cholestyramine (with Sugar) [Questran Packet] 4 gm PO TID BETWEEN MEALS PRN #30 packet 12/16/19 [Rx] Sodium Bicarbonate Tab 650 mg PO BID #60 tab 12/16/19 [Rx] carvediloL [Coreg] 6.25 mg PO BID-W/MEALS #30 tab 12/16/19 [Rx] Follow up Appointment(s)/Referral(s): [facility] [NON-STAFF] - 1-2 Days Chasidy Basurto MD [STAFF PHYSICIAN] - 1 Week Deon Ray MD [REFERRING] - 1 Week [facility], [REFERRING] - As Needed Mykel Liao MD [STAFF PHYSICIAN] - 1 Week Discharge Disposition: HOME WITH HOME HEALTH SERVICES
--- NOTE | 2019-12-16 11:31 | PN ---
PROGRESS NOTE DATE OF SERVICE: 12/16/2019 REASON FOR FOLLOWUP: Gram-negative bacteremia secondary to acute cholecystitis. INTERVAL HISTORY: The patient is currently afebrile. The patient is feeling better. Breathing comfortably. Denies having any chest pain. No shortness of breath. No cough. Abdominal pain has improved and diarrhea has slowed down. PHYSICAL EXAMINATION: Blood pressure 130/61 with a pulse of 74. Temperature is 97.3. She is 96% on room air. General description: The patient is an elderly female up in the chair in no distress. Respiratory system: Unlabored breathing. Clear to auscultation anteriorly. Heart S1, S2. Regular rate and rhythm. ABDOMEN: Soft, no tenderness. LABS: Hemoglobin 9.7, white count 12.9 as of yesterday, not repeated today. Blood culture has been negative. However, have not gotten the final on the blood cultures from [place]. DIAGNOSTIC IMPRESSION AND PLAN: Patient with Gram-negative bacteremia, source likely cholecystitis status post cholecystectomy. Patient clinically responding to Rocephin to continue. We will try to get the culture report from [place], so we can determine discharge antibiotics. Continue supportive care. MMODL / IJN: [id number] /
[2019-12-16] MEDS ORDERED: SODIUM FERRIC GLUCONAT-SUCROSE 125 MG in SODIUM CHLORIDE 0.9% 100 ML IVPB ONE (13:20)
--- NOTE | 2019-12-16 13:28 | PN ---
PROGRESS NOTE Patient is seen for followup for acute kidney injury on top of chronic kidney disease. She is currently doing well. Patient denies any significant complaints. She has increased her oral intake. PHYSICAL EXAMINATION: Patient is comfortable. Blood pressure 130/61, heart rate 74 per minute. She is afebrile. Examination of the heart S1, S2. Examination of the lungs, bilateral breath sounds are heard. Abdomen is soft, nontender. Examination of lower extremities shows no evidence of edema. ACCESS LIAISON exam grossly intact. LABS: Show sodium 142, potassium 4.2, chloride 113, CO2 is 21, BUN 27, creatinine 2.0. ASSESSMENT: 1. Acute kidney injury, prerenal, currently significantly improved. 2. 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 3. Cholecystitis, status post laparoscopic cholecystectomy. 4. Mild metabolic acidosis, currently improved. PLAN: Patient can be discharged from nephrology standpoint. 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 Her iron saturation was low. I will give her dose of IV iron prior to discharge. MMODL / IJN: [id number] /
== END 2019-12-16 14:06 | disposition home health service (06) | DRG 853 ==
LOC: 3SCARD 22:01
PROVIDERS: ADMIT Internal Medicine; ATTEND Internal Medicine
PROC: 0FT44ZZ Resection of Gallbladder, Percutaneous Endoscopic Approach (ICD-10-PCS; principal; 2019-12-13 08:00)
DX: A41.59 Other Gram-negative sepsis (principal); N17.0 Acute kidney failure with tubular necrosis; S52.209A Unspecified fracture of shaft of unspecified ulna, initial encounter for closed fracture; K81.0 Acute cholecystitis; N18.4 Chronic kidney disease, stage 4 (severe); E87.2 Acidosis; K81.2 Acute cholecystitis with chronic cholecystitis; K52.1 Toxic gastroenteritis and colitis; E03.9 Hypothyroidism, unspecified; F41.9 Anxiety disorder, unspecified; M06.9 Rheumatoid arthritis, unspecified; I12.9 Hypertensive chronic kidney disease with stage 1 through stage 4 chronic kidney disease, or unspecified chronic kidney disease; E05.90 Thyrotoxicosis, unspecified without thyrotoxic crisis or storm; G62.9 Polyneuropathy, unspecified; Z20.828 Contact with and (suspected) exposure to other viral communicable diseases; M54.9 Dorsalgia, unspecified; Z96.652 Presence of left artificial knee joint; D63.1 Anemia in chronic kidney disease; M62.50 Muscle wasting and atrophy, not elsewhere classified, unspecified site; R53.1 Weakness; T36.95XA Adverse effect of unspecified systemic antibiotic, initial encounter; Z91.81 History of falling; Z90.49 Acquired absence of other specified parts of digestive tract; Z90.89 Acquired absence of other organs; Z98.890 Other specified postprocedural states; Z80.0 Family history of malignant neoplasm of digestive organs; Z80.1 Family history of malignant neoplasm of trachea, bronchus and lung; Z79.899 Other long term (current) drug therapy; Z80.6 Family history of leukemia; Z80.8 Family history of malignant neoplasm of other organs or systems; Z79.890 Hormone replacement therapy
CPT/HCPCS: 71045; 71046; 76700; 80048; 81001; 82570; 83540; 83550; 83880; 84145; 84156; 84450; 84460; 85025; 85027; 85610; 86140; 86850; 86900; 86901; 86920; 87040; 88304; 93306

== ENCOUNTER 2020-12-11 01:30 | Inpatient (IN) | payer MEDICARE ==
[2020-12-11] MEDS ORDERED: MORPHINE SULFATE 4 MG/ML SYRINGE IV PRN (03:07)
[2020-12-11] MEDS ORDERED: NALOXONE 0.4 MG/ML 1 ML VIAL IV PRN (03:07)
[2020-12-11] MEDS ORDERED: VANCOMYCIN IV PER PHARMACY 1 EACH MISC MISCELLANE PRN (03:27)
[2020-12-11] MEDS: SODIUM CHLORIDE 0.9% 1,000 ML IV SCH ×2 (08:28→18:32)
[2020-12-11] MEDS: PANTOPRAZOLE 40 MG/10 ML VIAL IV SCH (10:48)
[2020-12-11] MEDS ORDERED: VANCOMYCIN 500 MG in SODIUM CHLORIDE 0.9% 250 ML IVPB ONE (12:00)
--- NOTE | 2020-12-11 12:01 | P.NPCON ---
History of Present Illness - Reason for Consult end stage renal disease - History of Present Illness Reason for consultation: End-stage renal disease History of present illness: Patient is a 85-year-old female seen in renal consultation for end-stage renal disease. She is maintained on peritoneal dialysis. Patient was transferred from another facility due to concern for urinary tract infection. Patient states she's been feeling progressively weak over the last few days. Her oral intake is also been poor. She had one episode of vomiting. She denies chest pain or shortness of breath. No edema. Blood pressure is on the lower side but fairly stable. No fever. No diarrhea. Denies abdominal pain. Denies any drainage from the peritoneal dialysis catheter site. Patient states her dialysate has been clear. No significant cough. She is currently receiving IV Rocephin and vancomycin. Vital signs are stable. General: The patient appeared well nourished and normally developed. HEENT: Head exam is unremarkable. LUNGS: Breath sounds decreased. HEART: Rate and Rhythm are regular. ABDOMEN: Soft, no distention. EXTREMITITES: No edema. Past Medical History Past Medical History: Hypertension, Rheumatoid Arthritis (RA), Thyroid Disorder Additional Past Medical History / Comment(s): Pt fell 11/11/14 & Fx left wrist..has cast on History of Any Multi-Drug Resistant Organisms: None Reported Past Surgical History: Appendectomy, Back Surgery, Heart Catheterization, Hernia Repair, Joint Replacement, Orthopedic Surgery, Tonsillectomy Additional Past Surgical History / Comment(s): Left knee replacement , Rt Inguinal Hernia, BACK SURGERY- SPURS REMOVED Past Anesthesia/Blood Transfusion Reactions: No Reported Reaction Past Psychological History: Anxiety Smoking Status: Never smoker Past Alcohol Use History: Rare Additional Past Alcohol Use History / Comment(s): occ. beer Past Drug Use History: None Reported - Past Family History Sister(s) Family Medical History: Cancer Additional Family Medical History / Comment(s): ONE SISTER LUNG CA-ANOTHER SISTER LEUKEMIA ,SISTER HAD BREAST & BOWEL CA Brother(s) Family Medical History: Cancer Additional Family Medical History / Comment(s): ONE BROTHER LIVER CA- ANOTHER BROTHER BONE CA Medications and Allergies Home Medications Medication Instructions Recorded Confirmed Type Gabapentin [Neurontin] 300 mg PO BID 10/28/16 12/11/20 History Levothyroxine Sodium [Synthroid] 75 mcg PO DAILY 12/11/19 12/11/20 History Meclizine HCl 12.5 mg PO DAILY PRN 12/11/19 12/11/20 History Atorvastatin [Lipitor] 20 mg PO DAILY 12/11/20 12/11/20 History Dialyvite 1 tab PO DAILY 12/11/20 12/11/20 History Ibrutinib [Imbruvica] 420 mg PO DAILY 12/11/20 12/11/20 History Midodrine(Unknown Dose) 1 tab PO TID 12/11/20 12/11/20 History Ondansetron [Zofran ODT] 4 mg PO BID PRN 12/11/20 12/11/20 History Pantoprazole [Protonix] 40 mg PO DAILY 12/11/20 12/11/20 History Sevelamer [Renvela] 1,600 mg PO Q8H 12/11/20 12/11/20 History Allergies Allergy/AdvReac Type Severity Reaction Status Date / Time No Known Allergies Allergy Verified 12/11/20 07:24 Physical Exam Vitals: Vital Signs Temp Pulse Resp BP Pulse Ox 12/11/20 10:58 98.2 F 88 14 107/68 92 L 12/11/20 09:33 98.1 F 98 16 107/75 98 12/11/20 08:30 95 16 107/75 96 12/11/20 06:01 81 17 108/68 96 12/11/20 03:20 70 16 109/69 97 Intake and Output 12/10/20 12/11/20 12/11/20 22:59 06:59 14:59 Other: Weight 43.091 kg Assessment and Plan Plan: Assessment: 1. End-stage renal disease maintained on peritoneal dialysis. 2. Possible UTI versus peritonitis. 3. Chronic kidney disease mineral bone disease maintained on Renvela outpatient. Plan: Resume PD exchanges - 2 L every 6 hours with 1.5 L solution. Check peritoneal dialysate for cell count, culture and Gram stain. Check UA and urine culture. Check phosphorus level. Infectious disease also consulted. Monitor vancomycin levels. Dose to be adjusted for renal function. Thank you for the consultation. I will continue to follow the patient with you during her hospital stay.
[2020-12-11] MEDS: DIALYSIS (PERIT 1.5%) 2,000 ML 30 G/2,000 ML BAG INTRAPERIT SCH ×2 (15:04→17:47)
--- NOTE | 2020-12-11 16:06 | P.HPIM ---
History of Present Illness H&P Date: 12/11/20 This is a pleasant 85-year-old female who originally presented to the emergency department at [place] for increased shortness of breath with possible infection and not feeling well with increased weakness over the last few days. Patient was transferred here to [facility] for further evaluation and nephrology evaluation. She reports to seeing Dr. Elizondo nephrology out of [place] as she lives in [place] and has been doing nightly peritoneal dialysis by herself. Patient states her primary care provider is Dr. Ray. Patient states she has not had much of an appetite and did have an episode of nausea with vomiting reported episodes of diarrhea. She states he has difficulty in eating and chewing. Patient states her last admission to hospital she was discharged on home oxygen at 2 L and patient presented here with continued shortness of breath and low oxygen saturations and currently on 4 L oxygen via nasal cannula. She was initiated on IV Rocephin and vancomycin and will consult infectious disease a possibility of peritonitis and/or possible urinary tract infection. Nephrology also consulted. Patient denies any chest pain or palpitations. Patient denies any recent sick contacts or fevers and states that her peritoneal fluid has been clear and no drainage or discharge noted around the site on her abdomen. Patient states she has also been having low blood pressures and adjustments are being made in the outpatient setting by primary care provider. Review of Systems Constitutional: Reports fatigue, Reports lethargy, Reports poor appetite Ears, nose, mouth and throat: Denies headache, Denies sore throat Cardiovascular: Reports decreased exercise tolerance, Reports dyspnea on exertion, Reports lightheadedness, Reports shortness of breath Respiratory: Reports dyspnea, Reports home oxygen Gastrointestinal: Reports abdominal pain, Reports diarrhea, Reports loss of appetite, Reports nausea, Reports vomiting Genitourinary: Denies dysuria, Denies hematuria Musculoskeletal: Reports muscle weakness Neurological: Reports weakness Psychiatric: Denies anxiety, Denies depression Endocrine: Reports fatigue Past Medical History Past Medical History: Dialysis, Hypertension, Renal Disease, Rheumatoid Arthritis (RA), Thyroid Disorder Additional Past Medical History / Comment(s): Pt fell 11/11/14 & Fx left wrist..has cast on History of Any Multi-Drug Resistant Organisms: None Reported Past Surgical History: Appendectomy, Back Surgery, Heart Catheterization, Hernia Repair, Joint Replacement, Orthopedic Surgery, Tonsillectomy Additional Past Surgical History / Comment(s): Left knee replacement , Rt Inguinal Hernia, BACK SURGERY- SPURS REMOVED Past Anesthesia/Blood Transfusion Reactions: No Reported Reaction Past Psychological History: Anxiety Smoking Status: Never smoker Past Alcohol Use History: Rare Additional Past Alcohol Use History / Comment(s): occ. beer Past Drug Use History: None Reported - Past Family History Sister(s) Family Medical History: Cancer Additional Family Medical History / Comment(s): ONE SISTER LUNG CA-ANOTHER SISTER LEUKEMIA ,SISTER HAD BREAST & BOWEL CA Brother(s) Family Medical History: Cancer Additional Family Medical History / Comment(s): ONE BROTHER LIVER CA- ANOTHER BROTHER BONE CA Medications and Allergies Home Medications Medication Instructions Recorded Confirmed Type Gabapentin [Neurontin] 300 mg PO BID 10/28/16 12/11/20 History Levothyroxine Sodium [Synthroid] 75 mcg PO DAILY 12/11/19 12/11/20 History Meclizine HCl 12.5 mg PO DAILY PRN 12/11/19 12/11/20 History Atorvastatin [Lipitor] 20 mg PO DAILY 12/11/20 12/11/20 History Dialyvite 1 tab PO DAILY 12/11/20 12/11/20 History Ibrutinib [Imbruvica] 420 mg PO DAILY 12/11/20 12/11/20 History Midodrine [ProAmatine] 5 mg PO TID PRN 12/11/20 12/11/20 History Ondansetron [Zofran ODT] 4 mg PO BID PRN 12/11/20 12/11/20 History Pantoprazole [Protonix] 40 mg PO DAILY 12/11/20 12/11/20 History Sevelamer [Renvela] 1,600 mg PO Q8H 12/11/20 12/11/20 History Allergies Allergy/AdvReac Type Severity Reaction Status Date / Time No Known Allergies Allergy Verified 12/11/20 07:24 Physical Exam Vitals: Vital Signs Pulse Resp BP Pulse Ox 12/11/20 08:30 95 16 107/75 96 12/11/20 06:01 81 17 108/68 96 12/11/20 03:20 70 16 109/69 97 Intake and Output 12/10/20 12/11/20 12/11/20 22:59 06:59 14:59 Other: Weight 43.091 kg Gen: This is a pleasant 85-year-old female sleeping although arousable alert and oriented 3 thin built, ill-appearing HEENT: Head is atraumatic, normocephalic. Pupils equal, round. Sclerae is anicteric. NECK: Supple. No JVD. No lymphadenopathy. No thyromegaly. LUNGS: Diminished breath sounds bilaterally with some scattered rhonchi noted. HEART: Regular rate and rhythm. No murmur. ABDOMEN: Soft. Bowel sounds are present. No masses. No tenderness. Peritoneal dialysis catheter intact with no surrounding redness or drainage noted EXTREMITIES: No pedal edema. No calf tenderness. NEUROLOGICAL: Patient is sleeping although arousable, alert and oriented x3. Diffusely weak. Assessment and Plan Assessment: Abdominal pain with nausea and vomiting possibly secondary to peritonitis Possible sepsis, present on admission with associated fevers and elevated white blood count possibly secondary to peritonitis or acute urinary tract infection Shortness of breath with no history of COPD recently discharged from other hospital on 2 L of oxygen Hyponatremia secondary to renal failure End-stage renal disease on peritoneal dialysis Dizziness History of vertigo Hypertension Rheumatoid arthritis Thyroid disorder Anxiety Full code Plan: Nephrology consulted along with infectious disease and will resume peritoneal dialysis and obtain fluid analysis with cultures along with urinalysis and urine culture. Recommend continue with IV antibiotics in the form of ceftriaxone and vancomycin and closely monitor kidney functions and will repeat a.m. labs along with chest x-ray. Patient currently afebrile although presented to a previous hospital with fevers and elevated white blood count and will repeat a.m. labs. Patient continues to be short of breath and currently maintained on 4 L via nasal cannula and uses 2 L and outpatient setting. Will have PT/OT evaluate the patient and consult social work for possible ECF placement as patient continues to be extremely weak. Encouraged oral intake. Time with Patient: Greater than 30
[2020-12-11] MEDS: HYDROcodone/APAP 5-325MG 1 EACH TAB PO PRN (18:26)
[2020-12-11] MEDS ORDERED: MECLIZINE 12.5 MG TAB PO PRN (20:02)
[2020-12-11] MEDS ORDERED: MIDODRINE 5 MG TAB PO PRN (20:02)
[2020-12-11] MEDS: GABAPENTIN 300 MG CAP PO SCH (20:38)
--- NOTE | 2020-12-11 23:19 | P.CONS ---
History of Present Illness - Reason for Consult Consult date: 12/11/20 UTI/Peritonitis Requesting physician: Esperanza Ha - Chief Complaint abd pain and diarrhea x few days - History of Present Illness History of present illness : Patient is 85-year-old female with a past medical history significant for end-stage renal disease in this patient currently due peritoneal dialysis the patient still makes urine patient presented to the hospital with hospital this morning for evaluation of not feeling well with increasing weakness that has been getting worse for the last few days patient with complaining of decreased appetite did have episode of vomiting and diarrhea however denies any bloody mucus in the stool did have some urinary frequency but no burning or suprapubic or flank pain and denies high- grade fever with the symptom the patient was initially evaluated at [facility] subsequently patient was transferred to this facility for further work- up on presentation to the hospital the patient was afebrile patient did have clinically significant blood negative stool for significant back positive apparently she did have a positive UA at the other facility low blood work has been done at this facility with consultation with infectious disease for possible UTI versus peritonitis Review of system: CONSTITUTIONAL: Positive for weakness denies high-grade fever. EYES: No complaint. ENT: No complaint. RESPIRATORY: No complaint. CARDIOVASCULAR: No complaint. GENITOURINARY: As per history of present illness GASTROINTESTINAL: As per history of present illness. MUSCULOSKELETAL: No complaint. INTEGUMENTARY: No complaint. PSYCHOLOGIC: No complaint. ENDOCRINE: No complaint. NEUROLOGIC: No complaint. Past medical history : Reviewed, documented below Past surgical history : Reviewed, documented below Social history: Reviewed, documented below Medications: Reviewed, as documented below EXAMINATION: Vital sigans= Reviewed and documented below GENERAL DESCRIPTION: Elderly female lying in bed, no distress. No tachypnea or accessory muscle of respiration use. HEENT: Shows Pallor , no scleral icterus. Oral mucous membrane is dry. NECK: Trachea central, no thyromegaly. LUNGS: Unlabored breathing. Clear to auscultation anteriorly. No wheeze or crackle. HEART: S1, S2, regular rate and rhythm. ABDOMEN: Soft, no tenderness , guarding or rigidity EXTREMITIES: No edema of feet. SKIN: No rash, no masses palpable. NEUROLOGICAL: The patient is awake, alert, oriented x3, mood and affect normal. LABS AND RADIOLOGY: Reviewed results see below Assessment : Patient presented to hospital with generalized not feeling well in this patient who did have predominantly GI symptoms of nausea vomiting and did have diarrhea subsequently stool for significantly positive and could be the likely source of her infection patient to have some urinary symptoms and to make urine underlying UTI not excluded and less likely PD catheter associated peritonitis in this patient did not have any cloudy peritoneal fluid Plan: 1-we will check urine culture, also obtain peritoneal fluid for cell count and culture, Blood Cultures 2-Rocephin 1 g daily to continue however discontinue IV vancomycin 3-start patient on oral vancomycin 125 milligrams p.o. every 6 hours We will follow on clinical condition and cultures to further adjust medication if needed Thank you for this consultation we will follow the patient along with you Past Medical History Past Medical History: Dialysis, Hypertension, Renal Disease, Rheumatoid Arthritis (RA), Thyroid Disorder Additional Past Medical History / Comment(s): Pt fell 11/11/14 & Fx left wrist..has cast on History of Any Multi-Drug Resistant Organisms: None Reported Past Surgical History: Appendectomy, Back Surgery, Heart Catheterization, Hernia Repair, Joint Replacement, Orthopedic Surgery, Tonsillectomy Additional Past Surgical History / Comment(s): Left knee replacement , Rt Inguinal Hernia, BACK SURGERY- SPURS REMOVED Past Anesthesia/Blood Transfusion Reactions: No Reported Reaction Past Psychological History: Anxiety Smoking Status: Never smoker Past Alcohol Use History: Rare Additional Past Alcohol Use History / Comment(s): occ. beer Past Drug Use History: None Reported - Past Family History Sister(s) Family Medical History: Cancer Additional Family Medical History / Comment(s): ONE SISTER LUNG CA-ANOTHER SISTER LEUKEMIA ,SISTER HAD BREAST & BOWEL CA Brother(s) Family Medical History: Cancer Additional Family Medical History / Comment(s): ONE BROTHER LIVER CA- ANOTHER BROTHER BONE CA Medications and Allergies Home Medications Medication Instructions Recorded Confirmed Type Gabapentin [Neurontin] 300 mg PO BID 10/28/16 12/11/20 History Levothyroxine Sodium [Synthroid] 75 mcg PO DAILY 12/11/19 12/11/20 History Meclizine HCl 12.5 mg PO DAILY PRN 12/11/19 12/11/20 History Atorvastatin [Lipitor] 20 mg PO DAILY 12/11/20 12/11/20 History Dialyvite 1 tab PO DAILY 12/11/20 12/11/20 History Ibrutinib [Imbruvica] 420 mg PO DAILY 12/11/20 12/11/20 History Midodrine [ProAmatine] 5 mg PO TID PRN 12/11/20 12/11/20 History Ondansetron [Zofran ODT] 4 mg PO BID PRN 12/11/20 12/11/20 History Pantoprazole [Protonix] 40 mg PO DAILY 12/11/20 12/11/20 History Sevelamer [Renvela] 1,600 mg PO Q8H 12/11/20 12/11/20 History Allergies Allergy/AdvReac Type Severity Reaction Status Date / Time No Known Allergies Allergy Verified 12/11/20 07:24 Physical Exam Vitals: Vital Signs Temp Pulse Pulse Resp BP BP Pulse Ox 12/11/20 20:00 97.0 F L 69 18 99/67 94 L 12/11/20 16:28 97.9 F 96 18 124/73 94 L 12/11/20 16:00 88 16 109/69 91 L 12/11/20 10:58 98.2 F 88 14 107/68 92 L 12/11/20 09:33 98.1 F 98 16 107/75 98 12/11/20 08:30 95 16 107/75 96 12/11/20 08:21 97.6 F 84 18 136/82 97 12/11/20 06:01 81 17 108/68 96 12/11/20 03:20 70 16 109/69 97 Intake and Output 12/11/20 12/11/20 12/12/20 14:59 22:59 06:59 Other: # Bowel Movements 2 Weight 43.091 kg Results Labs: Abnormal Lab Results - Last 24 Hours (Table) 12/11/20 Range/Units 17:29 C. difficile (EIA) Intrp Positive A (Negative)
[2020-12-12] MEDS: VANCOMYCIN 125 MG CAPSULE PO SCH ×5 (00:01→21:35)
[2020-12-12 01:27] LABS: Appearance,Urine Turbid (Clear); Bacteria,Urine Moderate /hpf; Bilirubin,Urine Negative (Negative); Blood,Urine Small (Negative); Budding Yeast,Urine Many /hpf; Color,Urine Yellow; Glucose,Urine (UA) Negative (Negative); Ketones,Urine Negative (Negative); Leukocyte Esterase,Urine Large (Negative); Mucus,Urine Rare /hpf; Nitrite,Urine Negative (Negative); Protein,Urine 3+ (Negative); RBC,Urine 88 /hpf (0-5); Specific Gravity,Urine 1.035 (1.001-1.035); Urobilinogen,Urine <2.0 mg/dL (<2.0); WBC,Urine >182 /hpf (0-5)
[2020-12-12 05:11] LABS: Anisocytosis Slight; Basophils % (A) 0 %; Eosinophils % (A) 0 %; HGB 11.8 gm/dL (11.4-16.0); Lymphocytes # (A) 0.9 k/uL (1.0-4.8); Lymphocytes % (A) 6 %; MCH 32.1 pg (25.0-35.0); MCHC 33.7 g/dL (31.0-37.0); MCV 95.1 fL (80.0-100.0); Macrocytosis Slight; Mean Platelet Volume 12.7; Monocytes # (A) 0.3 k/uL (0-1.0); Monocytes % (A) 2 %; Neutrophils # (A) 13.4 k/uL (1.3-7.7); Neutrophils % (A) 91 %; Platelet Count 116 k/uL (150-450); Poikilocytosis Slight; RBC 3.67 m/uL (3.80-5.40); RDW 16.6 % (11.5-15.5); WBC 14.8 k/uL (3.8-10.6)
[2020-12-12] MEDS: LEVOTHYROXINE 75 MCG TAB PO SCH (06:04)
[2020-12-12 07:01] LABS: ALT 17 U/L (4-34); AST 16 U/L (14-36); African American GFR (CKD) 6 (>60 ml/min/1.73 sqM); Albumin 1.6 g/dL (3.5-5.0); Albumin/Globulin Ratio 0.8; Alkaline Phosphatase 73 U/L (38-126); Anion Gap 5 mmol/L; Blood Urea Nitrogen 42 mg/dL (7-17); Calcium 7.7 mg/dL (8.4-10.2); Carbon Dioxide 26 mmol/L (22-30); Chloride 94 mmol/L (98-107); Globulin 2.1 g/dL; Glucose 91 mg/dL (74-99); Lipase 62 U/L (23-300); Magnesium 1.3 mg/dL (1.6-2.3); Non-African American GFR(CKD) 5 (>60 ml/min/1.73 sqM); Phosphorus 3.8 mg/dL (2.5-4.5); Potassium 4.3 mmol/L (3.5-5.1); Sodium 125 mmol/L (137-145); Total Bilirubin 0.3 mg/dL (0.2-1.3); Total Protein 3.7 g/dL (6.3-8.2)
[2020-12-12] MEDS ORDERED: DIALYSIS (PERIT 1.5%) 2,000 ML 30 G/2,000 ML BAG INTRAPERIT SCH (08:15)
[2020-12-12] MEDS: SEVELAMER 800 MG TAB PO SCH ×4 (08:17→23:24)
[2020-12-12] MEDS: GABAPENTIN 300 MG CAP PO SCH ×2 (08:33→21:35)
[2020-12-12] MEDS: PANTOPRAZOLE 40 MG/10 ML VIAL IV SCH (08:33)
[2020-12-12] MEDS: ATORVASTATIN 20 MG TAB PO SCH (08:33)
[2020-12-12] MEDS: HYDROcodone/APAP 5-325MG 1 EACH TAB PO PRN (08:40)
[2020-12-12 08:52] LABS: C Reactive Protein 31.3 mg/dL (<1.0)
--- NOTE | 2020-12-12 09:12 | P.PN ---
Subjective Patient is seen in follow-up for end-stage liver disease. She is maintained on peritoneal dialysis. She is noted to have gram-negative bacteremia from blood cultures drawn at [facility]. Dialysate fluid has not been sent for cell count and culture so far. She is maintained on IV Rocephin and vancomycin. She is also positive for C. diff. She complains of mild abdominal discomfort today. Vital signs are stable. General: The patient appeared well nourished and normally developed. HEENT: Head exam is unremarkable. LUNGS: Breath sounds decreased. HEART: Rate and Rhythm are regular. ABDOMEN: Soft, mild tenderness. EXTREMITITES: No edema. Objective - Vital Signs Vital signs: Vital Signs Temp 98.0 F 12/12/20 05:52 Pulse 80 12/12/20 05:52 Resp 18 12/12/20 05:52 BP 97/67 12/12/20 05:52 Pulse Ox 92 L 12/12/20 05:52 Intake & Output 12/11/20 12/12/20 12/12/20 18:59 06:59 18:59 Intake Total 200 120 Balance 200 120 Weight 43.091 kg Intake: Oral 200 120 Other: Voiding Method Indwelling Catheter # Bowel Movements 2 - Labs CBC & Chem 7: 12/12/20 04:15 12/12/20 04:15 Labs: Abnormal Lab Results - Last 24 Hours (Table) 12/11/20 12/12/20 12/12/20 Range/Units 17:29 01:07 04:15 WBC 14.8 H (3.8-10.6) k/uL RBC 3.67 L (3.80-5.40) m/uL RDW 16.6 H (11.5-15.5) % Plt Count 116 L (150-450) k/uL Neutrophils # 13.4 H (1.3-7.7) k/uL Lymphocytes # 0.9 L (1.0-4.8) k/uL Sodium (137-145) mmol/L Chloride (98-107) mmol/L BUN (7-17) mg/dL Creatinine (0.52-1.04) mg/dL Calcium (8.4-10.2) mg/dL Magnesium (1.6-2.3) mg/dL C-Reactive Protein (<1.0) mg/dL Total Protein (6.3-8.2) g/dL Albumin (3.5-5.0) g/dL Urine Appearance Turbid H (Clear) Urine Protein 3+ H (Negative) Urine Blood Small H (Negative) Ur Leukocyte Esterase Large H (Negative) Urine RBC 88 H (0-5) /hpf Urine WBC >182 H (0-5) /hpf Urine Bacteria Moderate H (None) /hpf Urine Mucus Rare H (None) /hpf Urine Yeast (Budding) Many H (None) /hpf C. difficile (EIA) Intrp Positive A (Negative) 12/12/20 Range/Units 04:15 WBC (3.8-10.6) k/uL RBC (3.80-5.40) m/uL RDW (11.5-15.5) % Plt Count (150-450) k/uL Neutrophils # (1.3-7.7) k/uL Lymphocytes # (1.0-4.8) k/uL Sodium 125 L (137-145) mmol/L Chloride 94 L (98-107) mmol/L BUN 42 H (7-17) mg/dL Creatinine 6.42 H (0.52-1.04) mg/dL Calcium 7.7 L (8.4-10.2) mg/dL Magnesium 1.3 L (1.6-2.3) mg/dL C-Reactive Protein 31.3 H (<1.0) mg/dL Total Protein 3.7 L (6.3-8.2) g/dL Albumin 1.6 L (3.5-5.0) g/dL Urine Appearance (Clear) Urine Protein (Negative) Urine Blood (Negative) Ur Leukocyte Esterase (Negative) Urine RBC (0-5) /hpf Urine WBC (0-5) /hpf Urine Bacteria (None) /hpf Urine Mucus (None) /hpf Urine Yeast (Budding) (None) /hpf C. difficile (EIA) Intrp (Negative) Assessment and Plan Plan: Assessment: 1. End-stage renal disease maintained on peritoneal dialysis. 2. Gram-negative bacteremia. Possible UTI versus peritonitis. 3. Chronic kidney disease mineral bone disease maintained on Renvela. Phosphorus 3.8. 4. C. diff colitis. 5. Hyponatremia secondary to chronic kidney disease. 6. Hypomagnesemia secondary to poor intake and GI losses. Plan: Maintain PD exchanges - 2 L every 6 hours with 1.5 L solution. Check peritoneal dialysate for cell count, culture and Gram stain - discussed with the nurse the delay in sending the fluid down. Follow-up cultures. Infectious disease also following. Monitor vancomycin levels. Dose to be adjusted for renal function. I will give her a dose of intraperitoneal cefepime as well as intraperitoneal vancomycin today. Intraperitoneal cefepime will be given once daily. Replace magnesium. Patient has right groin central line which was covered in stool. This will be removed and the tip will be sent for culture.
[2020-12-12] MEDS: CEFEPIME INTRAPERIT SCH (09:21)
[2020-12-12] MEDS: DIALYSIS DEX INTRAPERIT SCH (09:21)
[2020-12-12] MEDS: DIALYSIS (PERIT 1.5%) 2,000 ML 30 G/2,000 ML BAG INTRAPERIT SCH (10:05)
[2020-12-12] MEDS: MAGNESIUM SULFATE-D5W PMX 1 GM in DEXTROSE/WATER 1 100ML.BAG IVPB SCH ×2 (10:07→11:22)
[2020-12-12] MEDS ORDERED: VANCOMYCIN 750 MG in SODIUM CHLORIDE 0.9% 250 ML IVPB ONE (12:00)
[2020-12-12 13:05] LABS: Appearance,BF Cloudy; Nucleated Cells, Body Fluid 1280 /uL; RBC, Body Fluid 0 /uL
[2020-12-12 13:06] LABS: Mononuclear WBC,Body Fluid 4 %; Polynuclear WBC,Body Fluid 96 %; Total Cells Counted,Body Fluid 100
[2020-12-12] MEDS ORDERED: DIALYSIS DEX INTRAPERIT ONE (14:00)
[2020-12-12] MEDS ORDERED: VANCOMYCIN INTRAPERIT ONE (14:00)
--- NOTE | 2020-12-12 16:04 | P.PN ---
Subjective Progress Note Date: 12/12/20 This is a pleasant 85-year-old female who originally presented to the emergency department at [place] for increased shortness of breath with possible infection and not feeling well with increased weakness over the last few days. Patient was transferred here to [facility] for further evaluation and nephrology evaluation. She reports to seeing Dr. Elizondo nephrology out of [place] as she lives in [place] and has been doing nightly peritoneal dialysis by herself. Patient states her primary care provider is Dr. Ray. Patient states she has not had much of an appetite and did have an episode of nausea with vomiting reported episodes of diarrhea. She states he has difficulty in eating and chewing. Patient states her last admission to hospital she was discharged on home oxygen at 2 L and patient presented here with continued shortness of breath and low oxygen saturations and currently on 4 L oxygen via nasal cannula. She was initiated on IV Rocephin and vancomycin and will consult infectious disease a possibility of peritonitis and/or possible urinary tract infection. Nephrology also consulted. Patient denies any chest pain or palpitations. Patient denies any recent sick contacts or fevers and states that her peritoneal fluid has been clear and no drainage or discharge noted around the site on her abdomen. Patient states she has also been having low blood pr essures and adjustments are being made in the outpatient setting by primary care provider. 12/12/2020 Patient is seen in follow-up this morning extremely lethargic and overall not feeling well with intermittent periods of nausea. C. diff testing was positive and patient was started on oral Vanco and infectious disease following closely. She did have a femoral catheter for dialysis which is being sent for microbiology and being removed. Patient continues with peritoneal dialysis with nephrology following closely. Patient also receiving peritoneal IV antibiotics in the form of cefepime and vancomycin. Patient's blood pressures have been running on the lower side and patient has midodrine as needed and will change to scheduled and monitor blood pressure closely. Review of systems: Constitutional: reports of fatigue, intermittent low-grade fever Cardiovascular: No reports of chest pain or palpitations Respiratory: reports mild shortness of breath GI: No reports of nausea, vomiting, reports diarrhea : No reports of dysuria or retention Neurovascular: reports generalized weakness All medications have been reviewed Active Medications Acetaminophen (Acetaminophen Tab 325 Mg Tab) 650 mg PO Q6HR PRN PRN Reason: Mild Pain or Fever > 100.5 Atorvastatin Calcium (Atorvastatin 20 Mg Tab) 20 mg PO DAILY [facility] Last Admin: 12/12/20 08:33 Dose: 20 mg Documented by: Gabapentin (Gabapentin 300 Mg Cap) 300 mg PO BID [facility] Last Admin: 12/12/20 08:33 Dose: 300 mg Documented by: Ceftriaxone Sodium 2 gm/ (Sodium Chloride) 50 mls @ 100 mls/hr IVPB Q12H [facility] Last Admin: 12/12/20 14:09 Dose: 100 mls/hr Documented by: Cefepime HCl 1.25 gm/ (Peritoneal Dialysis Solution) 2,000 mls @ 0 mls/hr INTRAPERIT DAILY@0600 [facility]; Protocol Last Admin: 12/12/20 09:21 Dose: 2,000 mls/hr Documented by: Peritoneal Dialysis Solution (Delflex With 1.5% Dextrose (2,500 Ml)) 30 g in 2,000 mls @ 0 mls/hr INTRAPERIT 0000,1200,1800 [facility]; Protocol Levothyroxine Sodium (Levothyroxine 75 Mcg Tab) 75 mcg PO DAILY@0630 [facility] Last Admin: 12/12/20 06:04 Dose: 75 mcg Documented by: Meclizine HCl (Meclizine 12.5 Mg Tab) 12.5 mg PO DAILY PRN PRN Reason: DIZZINESS Midodrine (Midodrine 5 Mg Tab) 5 mg PO TID [facility] Naloxone HCl (Naloxone 0.4 Mg/Ml 1 Ml Vial) 0.2 mg IV Q2M PRN PRN Reason: Opioid Reversal Ondansetron HCl (Ondansetron 4 Mg/2 Ml Vial) 4 mg IVP Q8HR PRN PRN Reason: Nausea And Vomiting Pantoprazole Sodium (Pantoprazole 40 Mg/10 Ml Vial) 40 mg IV DAILY [facility] Last Admin: 12/12/20 08:33 Dose: 40 mg Documented by: Sevelamer Carbonate (Sevelamer 800 Mg Tab) 1,600 mg PO Q8HR [facility] Last Admin: 12/12/20 08:33 Dose: 1,600 mg Documented by: Vancomycin HCl (Vancomycin 125 Mg Capsule) 125 mg PO QID [facility] Last Admin: 12/12/20 14:09 Dose: 125 mg Documented by: Physical exam: Gen: This is a pleasant 85-year-old female sleeping although arousable alert and oriented 3 thin built, ill-appearing HEENT: Head is atraumatic, normocephalic. Pupils equal, round. Sclerae is anicteric. NECK: Supple. No JVD. No lymphadenopathy. No thyromegaly. LUNGS: Diminished breath sounds bilaterally with some scattered rhonchi noted. HEART: Regular rate and rhythm. No murmur. ABDOMEN: Soft. Bowel sounds are present. No masses. No tenderness. Peritoneal dialysis catheter intact with no surrounding redness or drainage noted EXTREMITIES: No pedal edema. No calf tenderness. NEUROLOGICAL: Patient is sleeping although arousable, alert and oriented x3. D iffusely weak. Assessment and plan: Abdominal pain with nausea and vomiting possibly secondary to peritonitis Clostridium difficile positive and started on oral vancomycin and receiving peritoneal vancomycin along with cefepime Possible sepsis, present on admission with associated fevers and elevated white blood count possibly secondary to peritonitis or acute urinary tract infection Shortness of breath with no history of COPD recently discharged from other hospital on 2 L of oxygen Hyponatremia secondary to renal failure Hypomagnesemia possibly secondary to diarrhea and poor oral intake End-stage renal disease on peritoneal dialysis Dizziness History of vertigo Hypertension Rheumatoid arthritis Thyroid disorder Anxiety Full code Plan: Nephrology following along with infectious disease and have resumed peritoneal dialysis and fluid analysis obtained and pending with cultures along with urinalysis and urine culture. Patient is continued on cefepime along with ceftriaxone and vancomycin oral as patient was positive for C. diff. Patient receiving cefepime with peritoneal dialysis exchanges. Magnesium low at 1.3 and will replace per protocol and repeat labs. Will have PT/OT evaluate the patient and consult social work for possible ECF placement as patient continues to be ex tremely weak. Encouraged oral intake. Objective - Vital Signs Vital signs: Vital Signs Temp 98.0 F 12/12/20 05:52 Pulse 80 12/12/20 05:52 Resp 18 12/12/20 05:52 BP 97/67 12/12/20 05:52 Pulse Ox 92 L 12/12/20 05:52 Intake & Output 12/11/20 12/12/20 12/12/20 18:59 06:59 18:59 Intake Total 200 120 Balance 200 120 Weight 43.091 kg Intake: Oral 200 120 Other: Voiding Method Indwelling Catheter # Bowel Movements 2 - Labs CBC & Chem 7: 12/12/20 04:15 12/12/20 04:15 Labs: Abnormal Lab Results - Last 24 Hours (Table) 12/11/20 12/12/20 12/12/20 Range/Units 17:29 01:07 04:15 WBC 14.8 H (3.8-10.6) k/uL RBC 3.67 L (3.80-5.40) m/uL RDW 16.6 H (11.5-15.5) % Plt Count 116 L (150-450) k/uL Neutrophils # 13.4 H (1.3-7.7) k/uL Lymphocytes # 0.9 L (1.0-4.8) k/uL Sodium (137-145) mmol/L Chloride (98-107) mmol/L BUN (7-17) mg/dL Creatinine (0.52-1.04) mg/dL Calcium (8.4-10.2) mg/dL Magnesium (1.6-2.3) mg/dL C-Reactive Protein (<1.0) mg/dL Total Protein (6.3-8.2) g/dL Albumin (3.5-5.0) g/dL Urine Appearance Turbid H (Clear) Urine Protein 3+ H (Negative) Urine Blood Small H (Negative) Ur Leukocyte Esterase Large H (Negative) Urine RBC 88 H (0-5) /hpf Urine WBC >182 H (0-5) /hpf Urine Bacteria Moderate H (None) /hpf Urine Mucus Rare H (None) /hpf Urine Yeast (Budding) Many H (None) /hpf C. difficile (EIA) Intrp Positive A (Negative) 12/12/20 Range/Units 04:15 WBC (3.8-10.6) k/uL RBC (3.80-5.40) m/uL RDW (11.5-15.5) % Plt Count (150-450) k/uL Neutrophils # (1.3-7.7) k/uL Lymphocytes # (1.0-4.8) k/uL Sodium 125 L (137-145) mmol/L Chloride 94 L (98-107) mmol/L BUN 42 H (7-17) mg/dL Creatinine 6.42 H (0.52-1.04) mg/dL Calcium 7.7 L (8.4-10.2) mg/dL Magnesium 1.3 L (1.6-2.3) mg/dL C-Reactive Protein 31.3 H (<1.0) mg/dL Total Protein 3.7 L (6.3-8.2) g/dL Albumin 1.6 L (3.5-5.0) g/dL Urine Appearance (Clear) Urine Protein (Negative) Urine Blood (Negative) Ur Leukocyte Esterase (Negative) Urine RBC (0-5) /hpf Urine WBC (0-5) /hpf Urine Bacteria (None) /hpf Urine Mucus (None) /hpf Urine Yeast (Budding) (None) /hpf C. difficile (EIA) Intrp (Negative)
[2020-12-12] MEDS: MIDODRINE 5 MG TAB PO SCH ×2 (16:51→21:35)
[2020-12-12] MEDS: ACETAMINOPHEN TAB 325 MG TAB PO PRN (17:33)
[2020-12-12] MEDS: DIALYSIS (PERIT 1.5%) 2,500 ML 30 G/2,000 ML BAG INTRAPERIT SCH (23:37)
[2020-12-13] MEDS: DIALYSIS (PERIT 1.5%) 2,500 ML 30 G/2,000 ML BAG INTRAPERIT SCH ×3 (00:48→17:43)
[2020-12-13] MEDS: ACETAMINOPHEN TAB 325 MG TAB PO PRN ×3 (01:32→22:11)
--- NOTE | 2020-12-13 05:21 | PN ---
PROGRESS NOTE DATE OF SERVICE: 12/12/2020 REASON FOR FOLLOWUP: PD catheter associated peritonitis from UTI and C difficile colitis. INTERVAL HISTORY: The patient is afebrile. The patient is breathing slightly comfortably. Denies having any chest pain, shortness of breath or cough. Abdominal pain has decreased in intensity and did have one loose stool study. PHYSICAL EXAMINATION: Blood pressure 108/64, pulse 83, temperature 97.4. She is 98% on 3 L nasal cannula. General description is an elderly female lying in bed in no distress. Respiratory system: Unlabored breathing. Clear to auscultation anteriorly. Heart S1, S2. Regular rate and rhythm. Abdomen: Soft, mildly distended. No guarding. No rigidity. LABS: Hemoglobin is 11.1, white count 14.8. BUN of 42, creatinine 6.42. DIAGNOSTIC IMPRESSION AND PLAN: 1. Patient with PD catheter with peritonitis bacteremia urinary tract infection covered with Cefepime. 2. Patient with C difficile colitis. To continue with vancomycin 125 mg p.o. q.6 hours. Continue supportive care. MMODL / IJN: [id number] /
[2020-12-13] MEDS: LEVOTHYROXINE 75 MCG TAB PO SCH (06:12)
[2020-12-13] MEDS: DIALYSIS DEX INTRAPERIT SCH (06:13)
[2020-12-13] MEDS: CEFEPIME INTRAPERIT SCH (06:13)
[2020-12-13] MEDS: PANTOPRAZOLE 40 MG/10 ML VIAL IV SCH (09:45)
[2020-12-13] MEDS: MIDODRINE 5 MG TAB PO SCH ×3 (09:46→20:56)
[2020-12-13] MEDS: ATORVASTATIN 20 MG TAB PO SCH (09:46)
[2020-12-13] MEDS: SEVELAMER 800 MG TAB PO SCH ×2 (09:46→18:03)
[2020-12-13] MEDS: VANCOMYCIN 125 MG CAPSULE PO SCH ×4 (09:46→20:56)
[2020-12-13] MEDS: GABAPENTIN 300 MG CAP PO SCH ×2 (09:46→20:56)
--- NOTE | 2020-12-13 09:47 | P.PN ---
Subjective Patient is seen in follow-up for end-stage renal disease. She is maintained on peritoneal dialysis. She is noted to have gram-negative bacteremia from blood cultures drawn at [facility]. She is also positive for C. diff. She has no trouble with peritoneal dialysis exchanges. Dialysate fluid culture shows many PMNs. Culture is pending. White cell count was 96 in the dialysate fluid. She is maintained on IV as well as intraperitoneal antibiotics. Vital signs are stable. General: The patient appeared well nourished and normally developed. HEENT: Head exam is unremarkable. LUNGS: Breath sounds decreased. HEART: Rate and Rhythm are regular. ABDOMEN: Soft, no tenderness. EXTREMITITES: No edema. Objective - Vital Signs Vital signs: Vital Signs Temp 97.5 F L 12/13/20 05:00 Pulse 43 L 12/13/20 05:00 Resp 20 12/13/20 05:00 BP 136/83 12/13/20 05:00 Pulse Ox 99 12/13/20 08:40 Intake & Output 12/12/20 12/13/20 12/13/20 18:59 06:59 18:59 Intake Total 600 50 Output Total 50 Balance 600 0 Weight 43.091 kg Intake: Oral 600 50 Output: Urine 50 Other: Voiding Method Indwelling Catheter Indwelling Catheter Indwelling Catheter CAPD - Labs CBC & Chem 7: 12/12/20 04:15 12/12/20 04:15 Labs: Microbiology - Last 24 Hours (Table) 12/12/20 09:49 Gram Stain - Preliminary Dialysate Body Fluid Culture - Preliminary 12/12/20 04:15 Blood Culture - Preliminary Blood No Growth after 24 hours 12/12/20 11:35 Catheter Tip Culture - Preliminary Catheter Tip 12/12/20 01:07 Urine Culture - Preliminary Urine,Catheterized Assessment and Plan Plan: Assessment: 1. End-stage renal disease maintained on peritoneal dialysis. 2. Gram-negative bacteremia with peritonitis and UTI. On antibiotics. 3. Chronic kidney disease mineral bone disease maintained on Renvela. Phosphorus 3.8. 4. C. diff colitis On oral vancomycin. 5. Hyponatremia secondary to chronic kidney disease. 6. Hypomagnesemia secondary to poor intake and GI losses. Replaced. 7. PD associated peritonitis. Dialysate fluid white count 96. Plan: Maintain PD exchanges - 2 L every 6 hours with 1.5 L solution. Repeat peritoneal dialysate for cell count, culture and Gram stain today. Follow-up cultures. Infectious disease also following. Patient received intraperitoneal vancomycin on December 12. Also receiving intraperitoneal cefepime daily which was started December 12.
[2020-12-13] MEDS: ONDANSETRON 4 MG/2 ML VIAL IVP PRN ×2 (10:10→19:54)
[2020-12-13] MEDS ORDERED: HYDROcodone/APAP 5-325MG 1 EACH TAB PO PRN (10:47)
[2020-12-13] MEDS ORDERED: HYDROcodone/APAP 5-325MG 1 EACH TAB PO STA (10:47)
[2020-12-13] MEDS ORDERED: FLUCONAZOLE IN NACL,ISO-OSM 200 MG in SALINE 1 100ML.BAG IVPB STA (13:43)
--- NOTE | 2020-12-13 14:17 | XR ---
EXAMINATION TYPE: XR chest 1V portable DATE OF EXAM: 12/13/2020 COMPARISON: Chest x-ray 12/13/2019 HISTORY: Shortness of breath TECHNIQUE: Single frontal view of the chest is obtained. FINDINGS: There is bibasilar increased attenuation, there is interval obscured appearance to the rig ht hemidiaphragm. No evident pneumothorax. Heart appears stable, borderline enlarged although the pat ient is rotated. Interstitium is mildly increased. Remote fracture suspected the proximal right humer us. IMPRESSION: There are likely basilar effusions and associated atelectasis, correlate to exclude pneu monia, edema, congestive heart failure is within the differential
--- NOTE | 2020-12-13 14:28 | XR ---
EXAMINATION TYPE: XR Hip Bilateral and AP pelvis DATE OF EXAM: 12/13/2020 COMPARISON: CT same date HISTORY: Pain TECHNIQUE: A single AP view of the pelvis is obtained. Two views of the bilateral hip are obtained on total of 5 images. FINDINGS: There is no acute fracture/dislocation evident in the pelvis. The hip and sacroiliac join ts appear symmetric and unremarkable. The overlying soft tissue appears unremarkable. Lateral sublux ation L4-5 is noted, there is a marked thoracic scoliosis. Bone mineralization is reduced. There is a stimulator in the right gluteal region, lead is coursing through the sacrum on the right. There is a catheter over the right abdomen, surgical michael are present along the right lower abdominal wall. There is an oval calcification within the pelvis on the left measuring 18 mm. Two views of bilateral hip show no acute fracture or dislocation. No focal lytic or sclerotic lesion seen in the proximal bilateral femur. The overlying soft tissue is unremarkable. IMPRESSION: There is no acute fracture or dislocation in the pelvis or bilateral hips. Scoliosis and subluxation in the lumbar spine.
--- NOTE | 2020-12-13 14:36 | CT ---
EXAMINATION TYPE: CT abdomen pelvis wo con DATE OF EXAM: 12/13/2020 COMPARISON: No images are available. INDICATION: Abdominal pain r/o peritonitis DLP: 749 mGycm, Automated exposure control for dose reduction was used. CONTRAST: 0 mL of Isovue 300. Study performed without Oral Contrast TECHNIQUE: Axial images were obtained from above the diaphragm to the pubic rami in the axial plane a t 5 mm thick sections. Reconstructed images are reviewed on the computer in the coronal plane. FINDINGS: Limited CT sections are obtained the lung bases. Small bilateral pleural effusions are present. [place] nary artery calcification is noted.. Hiatal hernia is present. CT ABDOMEN: Ascites is present. Intraperitoneal catheter is present. Tip is in the right upper quadra nt. Liver: Normal Spleen: Normal Pancreas: Normal Adrenal glands: The adrenal glands are normal. Gallbladder: Gallbladder is difficult to identify within the ascites. Kidneys: No masses are evident. No hydronephrosis is present. No cysts are present. No renal stone s are evident. Aorta: Vascular calcification is within the aorta. Inferior vena cava: Normal. CT PELVIS: Loops of bowel within the abdomen and pelvis are normal. There are loops of bowel which are incom pletely distended or lack oral contrast limiting their evaluation. Appendix: Not identified. No dilated tubular structure or inflammatory changes. Urinary bladder: Decompressed with Rogers catheter. Air is present within the urinary bladder. Genitourinary structures: Uterus is normal. Adnexal regions are clear. Osseous structures: No suspicious lytic or sclerotic lesions. IMPRESSIONS: 1. Ascites. 2. Small bilateral pleural effusions with adjacent compressive atelectasis. 3. No suspicious abscess formation identified.
[2020-12-13] MEDS: HYDROcodone/APAP 5-325MG 1 EACH TAB PO PRN ×2 (14:50→19:54)
[2020-12-13] MEDS ORDERED: FUROSEMIDE 10 MG/ML 2 ML VIAL IV ONE (15:05)
--- NOTE | 2020-12-13 15:06 | P.PN ---
Subjective Progress Note Date: 12/13/20 This is a pleasant 85-year-old female who originally presented to the emergency department at [place] for increased shortness of breath with possible infection and not feeling well with increased weakness over the last few days. Patient was transferred here to [facility] for further evaluation and nephrology evaluation. She reports to seeing Dr. Elizondo nephrology out of [place] as she lives in [place] and has been doing nightly peritoneal dialysis by herself. Patient states her primary care provider is Dr. Ray. Patient states she has not had much of an appetite and did have an episode of nausea with vomiting reported episodes of diarrhea. She states he has difficulty in eating and chewing. Patient states her last admission to hospital she was discharged on home oxygen at 2 L and patient presented here with continued shortness of breath and low oxygen saturations and currently on 4 L oxygen via nasal cannula. She was initiated on IV Rocephin and vancomycin and will consult infectious disease a possibility of peritonitis and/or possible urinary tract infection. Nephrology also consulted. Patient denies any chest pain or palpitations. Patient denies any recent sick contacts or fevers and states that her peritoneal fluid has been clear and no drainage or discharge noted around the site on her abdomen. Patient states she has also been having low blood pr essures and adjustments are being made in the outpatient setting by primary care provider. 12/12/2020 Patient is seen in follow-up this morning extremely lethargic and overall not feeling well with intermittent periods of nausea. C. diff testing was positive and patient was started on oral Vanco and infectious disease following closely. She did have a femoral catheter for dialysis which is being sent for microbiology and being removed. Patient continues with peritoneal dialysis with nephrology following closely. Patient also receiving peritoneal IV antibiotics in the form of cefepime and vancomycin. Patient's blood pressures have been running on the lower side and patient has midodrine as needed and will change to scheduled and monitor blood pressure closely. 12/13/2020 Patient is seen and evaluated in follow-up this morning continues to have abdominal discomfort and is also having some left hip pain and will order hip x- ray. Repeat chest x-ray ordered and pending. Will order CT abdomen and pelvis as well. She continues with peritoneal dialysis and most recently had right femoral line discontinued and sent for analysis and awaiting finalized cultures. Urine culture preliminary showing gram-negative bacilli along with the species and dialysate Gram stain preliminary also showing gram-negative with infectious disease following closely and patient is continued on IV antibiotics in the form of ceftriaxone along with peritoneal exchanges including cefepime per infectious disease recommendations. Patient continues with loose stools and being treated for C. diff with oral vancomycin. Blood pressure is improved today and patient is receiving midodrine 5 mg 3 times a day. Nephrology is following closely and morning labs continue to be pending. Patient is afebrile and continues to have shortness of breath and maintained on 3 L via nasal cannula. Encouraged oral intake and patient continues to have intermittent nausea and decreased oral intake with no real appetite. Review of systems: Constitutional: reports of fatigue, reports of fever or chills Cardiovascular: No reports of chest pain or palpitations Respiratory: reports mild shortness of breath GI: No reports of nausea, vomiting, reports stools : No reports of dysuria or retention Neurovascular: reports generalized weakness and patient also reporting left hip pain All medications have been reviewed Active Medications Acetaminophen (Acetaminophen Tab 325 Mg Tab) 650 mg PO Q6HR PRN PRN Reason: Mild Pain or Fever > 100.5 Last Admin: 12/13/20 09:44 Dose: 650 mg Documented by: Hydrocodone Bitart/Acetaminophen (Hydrocodone/Apap 5-325mg 1 Each Tab) 0.5 each PO Q6HR PRN PRN Reason: Pain Hydrocodone Bitart/Acetaminophen (Hydrocodone/Apap 5-325mg 1 Each Tab) 1 each PO Q6HR PRN PRN Reason: Moderate to Severe Pain Atorvastatin Calcium (Atorvastatin 20 Mg Tab) 20 mg PO DAILY [facility] Last Admin: 12/13/20 09:46 Dose: 20 mg Documented by: Gabapentin (Gabapentin 300 Mg Cap) 300 mg PO BID [facility] Last Admin: 12/13/20 09:46 Dose: 300 mg Documented by: Ceftriaxone Sodium 2 gm/ (Sodium Chloride) 50 mls @ 100 mls/hr IVPB Q12H [facility] Last Admin: 12/13/20 10:57 Dose: 100 mls/hr Documented by: Cefepime HCl 1.25 gm/ (Peritoneal Dialysis Solution) 2,000 mls @ 0 mls/hr INTRAPERIT DAILY@0600 [facility]; Protocol Last Admin: 12/13/20 06:13 Dose: 2,000 mls/hr Documented by: Peritoneal Dialysis Solution (Delflex With 1.5% Dextrose (2,500 Ml)) 30 g in 2,000 mls @ 0 mls/hr INTRAPERIT 0000,1200,1800 [facility]; Protocol Last Admin: 12/13/20 12:30 Dose: 2,000 mls/hr Documented by: Fluconazole/Sodium Chloride (100 mg/ IV Solution) 50 mls @ 50 mls/hr IVPB DAILY [facility] Levothyroxine Sodium (Levothyroxine 75 Mcg Tab) 75 mcg PO DAILY@0630 [facility] Last Admin: 12/13/20 06:12 Dose: 75 mcg Documented by: Meclizine HCl (Meclizine 12.5 Mg Tab) 12.5 mg PO DAILY PRN PRN Reason: DIZZINESS Midodrine (Midodrine 5 Mg Tab) 5 mg PO TID [facility] Last Admin: 12/13/20 09:46 Dose: 5 mg Documented by: Naloxone HCl (Naloxone 0.4 Mg/Ml 1 Ml Vial) 0.2 mg IV Q2M PRN PRN Reason: Opioid Reversal Ondansetron HCl (Ondansetron 4 Mg/2 Ml Vial) 4 mg IVP Q8HR PRN PRN Reason: Nausea And Vomiting Last Admin: 12/13/20 10:10 Dose: 4 mg Documented by: Pantoprazole Sodium (Pantoprazole 40 Mg/10 Ml Vial) 40 mg IV DAILY [facility] Last Admin: 12/13/20 09:45 Dose: 40 mg Documented by: Sevelamer Carbonate (Sevelamer 800 Mg Tab) 1,600 mg PO Q8HR [facility] Last Admin: 12/13/20 09:46 Dose: 1,600 mg Documented by: Vancomycin HCl (Vancomycin 125 Mg Capsule) 125 mg PO QID [facility] Last Admin: 12/13/20 12:36 Dose: 125 mg Documented by: Physical exam: Gen: This is a pleasant 85-year-old female awake, alert and oriented 3 thin built, ill-appearing, temp is 97.7F, pulse is 90, respirations are 17, blood pressure is 106/70, oxygen saturation is 95% on 3 L via nasal cannula HEENT: Head is atraumatic, normocephalic. Pupils equal, round. Sclerae is anicteric. NECK: Supple. No JVD. No lymphadenopathy. No thyromegaly. LUNGS: Diminished breath sounds bilaterally with some scattered rhonchi noted. HEART: S1, S2 are muffled ABDOMEN: Soft. Bowel sounds are present. No masses. No tenderness. Peritoneal dialysis catheter intact with no surrounding redness or drainage noted EXTREMITIES: No pedal edema. No calf tenderness. Left hip pain on palpation radiating down the thigh NEUROLOGICAL: Patient is awake, alert and oriented x3. Diffusely weak. Assessment and plan: Abdominal pain with nausea and vomiting possibly secondary to peritonitis Clostridium difficile Left hip pain Possible sepsis, present on admission with associated fevers and elevated white blood count possibly secondary to peritonitis or acute urinary tract infection Shortness of breath with no history of COPD recently discharged from other hospital on 2 L of oxygen Hyponatremia secondary to renal failure Hypomagnesemia possibly secondary to diarrhea and poor oral intake End-stage renal disease on peritoneal dialysis Dizziness History of vertigo Hypertension Rheumatoid arthritis Thyroid disorder Anxiety Full code Plan: Nephrology following along with infectious disease and have resumed peritoneal dialysis and fluid analysis of dialysate luminary showing gram-negative bacilli and urine culture preliminary showing gram-negative bacilli with yeast species and will await finalized cultures and continue on IV ceftriaxone along with cefepime exchanges during dialysis and oral vancomycin for C. diff. Infectious disease following closely and previous right femoral catheter tip culture is pending as well. Repeat a.m. labs continue to be pending and will follow-up. Patient having some left hip pain and x-ray shows no acute fracture or disc location noted in the pelvis or hips along with scoliosis and subluxation in the lumbar spine is noted. CT abdomen and pelvis done showing ascites, small bilateral pleural effusions with adjacent compressive atelectasis and no suspicious abscess formation identified. Repeat chest x-ray today shows likely basilar effusion and associated atelectasis to correlate to exclude pneumonia, edema and CHF is within the differential. Will add incentive spirometer and monitor closely. Encouraged increased activity as tolerated. Encouraged oral intake. Objective - Vital Signs Vital signs: Vital Signs Temp 97.5 F L 12/13/20 05:00 Pulse 43 L 12/13/20 05:00 Resp 20 12/13/20 05:00 BP 136/83 12/13/20 05:00 Pulse Ox 99 12/13/20 08:40 Intake & Output 12/12/20 12/13/20 12/13/20 18:59 06:59 18:59 Intake Total 600 50 Output Total 50 Balance 600 0 Weight 43.091 kg Intake: Oral 600 50 Output: Urine 50 Other: Voiding Method Indwelling Catheter Indwelling Catheter Indwelling Catheter CAPD - Labs CBC & Chem 7: 12/12/20 04:15 12/12/20 04:15 Labs: Microbiology - Last 24 Hours (Table) 12/12/20 09:49 Gram Stain - Preliminary Dialysate Body Fluid Culture - Preliminary 12/12/20 04:15 Blood Culture - Preliminary Blood No Growth after 24 hours 12/12/20 11:35 Catheter Tip Culture - Preliminary Catheter Tip 12/12/20 01:07 Urine Culture - Preliminary Urine,Catheterized
[2020-12-13 15:10] LABS: Appearance,BF Hazy
[2020-12-13 15:23] LABS: Nucleated Cells, Body Fluid 3400 /uL; RBC, Body Fluid 100 /uL
[2020-12-13 15:43] LABS: Mononuclear WBC,Body Fluid 33 %; Polynuclear WBC,Body Fluid 61 %; Total Cells Counted,Body Fluid 100
[2020-12-13] MEDS ORDERED: MAGNESIUM SULFATE-D5W PMX 1 GM in DEXTROSE/WATER 1 100ML.BAG IVPB SCH (16:00)
[2020-12-14] MEDS: SEVELAMER 800 MG TAB PO SCH ×3 (00:46→17:07)
[2020-12-14] MEDS: DIALYSIS (PERIT 1.5%) 2,500 ML 30 G/2,000 ML BAG INTRAPERIT SCH ×4 (00:46→22:07)
[2020-12-14] MEDS: HYDROcodone/APAP 5-325MG 1 EACH TAB PO PRN (00:54)
--- NOTE | 2020-12-14 05:34 | PN ---
PROGRESS NOTE DATE OF SERVICE: 12/13/2020 REASON FOR FOLLOW UP: 1. Enterobacter bacteremia likely related to dialysis catheter. 2. PD catheter associated peritonitis. 3. UTI. 4. C difficile colitis. INTERVAL HISTORY: Patient is afebrile. The patient is breathing slightly comfortably. Denies having any chest pain, shortness of breath or cough. No abdominal pain. Diarrhea has slightly slowed down. PHYSICAL EXAMINATION: Blood pressure 127/83 with a pulse of 46, temperature 97.4. She is 96% on 3 L nasal cannula. General description is an elderly female lying in bed in no distress. Respiratory system: Unlabored breathing, clear to auscultation anteriorly. Heart S1, S2. Regular rate and rhythm. Abdomen soft, no tenderness. Extremities: No edema of the feet. LABS: Hemoglobin is 11.8, white count 14.8, BUN of 42, creatinine 6.42. Blood cultures were done at [facility] came back positive with Enterobacter. The blood cultures here so far negative. Abdominal culture showing a Gram-negative bacilli. Urine showing gram-negative yeast. DIAGNOSTIC IMPRESSION/PLAN: 1. Patient with Enterobacter bacteremia secondary to dialysis catheter has been discontinued. Blood culture repeat has been negative so far. Patient to continue with Rocephin. 2. Patient with PD catheter associated peritonitis with culture positive for gram negative should be covered with IV vanco. No need for additional cefepime through the dialysis. 3. C difficile colitis to continue with oral vancomycin. MMODL / IJN: [id number] /
[2020-12-14] MEDS: LEVOTHYROXINE 75 MCG TAB PO SCH (06:27)
[2020-12-14 08:10] LABS: African American GFR (CKD) 10 (>60 ml/min/1.73 sqM); Anion Gap 5 mmol/L; Blood Urea Nitrogen 30 mg/dL (7-17); Carbon Dioxide 25 mmol/L (22-30); Chloride 93 mmol/L (98-107); Glucose 109 mg/dL (74-99); Magnesium 1.5 mg/dL (1.6-2.3); Non-African American GFR(CKD) 8 (>60 ml/min/1.73 sqM); Potassium 3.3 mmol/L (3.5-5.1); Sodium 123 mmol/L (137-145)
[2020-12-14] MEDS: VANCOMYCIN 125 MG CAPSULE PO SCH ×4 (09:21→21:16)
[2020-12-14] MEDS: PANTOPRAZOLE 40 MG/10 ML VIAL IV SCH (09:21)
[2020-12-14] MEDS: GABAPENTIN 300 MG CAP PO SCH ×2 (09:21→21:15)
[2020-12-14] MEDS: ATORVASTATIN 20 MG TAB PO SCH (09:21)
[2020-12-14] MEDS: MIDODRINE 5 MG TAB PO SCH ×3 (09:21→21:15)
[2020-12-14] MEDS: FLUCONAZOLE IN NACL,ISO-OSM 100 MG in SALINE 1 50ML.BAG IVPB SCH (12:09)
[2020-12-14] MEDS: ACETAMINOPHEN TAB 325 MG TAB PO PRN (13:46)
[2020-12-14] MEDS ORDERED: Potassium Replacement Protocol 1 EACH MISC MISCELLANE PRN (15:23)
[2020-12-14] MEDS ORDERED: Magnesium Replacement Protocol 1 EACH MISC MISCELLANE PRN (15:23)
--- NOTE | 2020-12-14 16:45 | PN ---
PROGRESS NOTE DATE OF SERVICE: 12/14/2020 REASON FOR FOLLOW UP: 1. Enterobacter bacteremia secondary catheter infection. 2. Peritonitis. 3. C difficile colitis. INTERVAL HISTORY: Patient is afebrile, breathing comfortably. Some abdominal discomfort but no worsening. No vomiting. No chest pain, shortness of breath or cough. No worsening diarrhea. PHYSICAL EXAMINATION: Blood pressure 101/58 with a pulse of 90, temperature 97.2. She is 95% on 3 L nasal cannula. General description is an elderly female lying in bed in no distress. Respiratory system unlabored breathing. Clear to auscultation anteriorly. Heart S1, S2. Regular rate and rhythm. Abdomen soft, mildly tender. No guaridng or rigidity. LABS: BUN of 30, creatinine is 4.4. Dialysis culture positive for Enterobacter. Blood culture repeat has been negative so far. Urine showing E coli. DIAGNOSTIC IMPRESSION AND PLAN: 1. Patient with Enterobacter bacteremia source is likely dialysis with peritonitis with concern for the dialysis catheter infection which has been discontinued. The patient is currently covered with Rocephin to continue. 2. C difficile colitis. Continue with oral vancomycin. Increase probiotic and yogurt intake. MMODL / IJN: [id number] /
--- NOTE | 2020-12-14 16:58 | PN ---
PROGRESS NOTE HISTORY: Patient is seen for followup for end-stage renal disease. She had peritonitis and was maintained on intraperitoneal antibiotics which are now discontinued by ID. The patient is tolerating her PD exchanges. She is comfortable, awake this morning. Blood pressure is on the lower side. PHYSICAL EXAMINATION: This morning blood pressure was 104/66, heart rate 80 per minute, she is afebrile. Examination of the heart S1, S2. Examination of the lungs, bilateral breath sounds are heard. Decreased breath sounds at the bases. Abdomen is soft. No significant tenderness noted. Exam of lower extremities shows no evidence of edema. [employer] exam grossly intact. LAB: Sodium 123, potassium 3.3, BUN 30, creatinine 4.48, hemoglobin 11.8. ASSESSMENT: 1. End-stage renal disease, on peritoneal dialysis continue current PD exchanges 2 L of 1.5% solution q.6 hours. 2. Gram-negative bacteremia with peritonitis, maintained on antibiotics. The patient had been on IP antibiotics now discontinued. 3. Chronic kidney disease, mineral bone disorder. 4. Hyponatremia possibly hypovolemic and also associated with underlying renal failure. 5. Hypomagnesemia status post replacement. 6. Clostridium difficile colitis, on vancomycin. 7. Hypokalemia, which will be replaced associated with decreased oral intake. PLAN: Replace potassium. Add sodium chloride tabs. Continue IV ceftriaxone as per ID. Continue p.o. vancomycin for C difficile colitis. MMODL / IJN: [id number] /
[2020-12-14] MEDS: MAGNESIUM SULFATE-D5W PMX 1 GM in DEXTROSE/WATER 1 100ML.BAG IVPB SCH ×2 (17:08→18:08)
[2020-12-14] MEDS: POTASSIUM CHLORIDE ER 20 MEQ TAB.ER PO SCH ×2 (17:08→18:08)
[2020-12-14] MEDS: SODIUM CHLORIDE TAB 1 GM TAB PO SCH (17:09)
--- NOTE | 2020-12-14 19:43 | PN ---
PROGRESS NOTE DATE OF SERVICE: 12/14/2020 This 85-year-old woman who was admitted with abdominal pain with nausea, vomiting and possibly secondary peritonitis is being closely monitored. No chest pain. No palpitations. No fever. The patient had a CT scan of the abdomen and pelvis which showed ascites and small bilateral pleural effusions. No suspicious abscess formation was noted. was also done because of the concerns of hip pain, which showed no acute fracture or dislocation. No chest pain. No palpitations. No fever. Past medical history reviewed. PHYSICAL EXAMINATION: Alert oriented x2. Pulse is 97, blood pressure 84/68, respiration 19, temperature 97.2, pulse ox 94% on 3 L. HEENT: Conjunctivae normal. NECK: No jugular venous distention. CARDIOVASCULAR: S1, S2 muffled. RESPIRATION: Breath sounds diminished at the bases. Scattered rhonchi. ABDOMEN: Soft. Mild diffuse tenderness. LEGS: No edema. No swelling. NERVOUS SYSTEM: No focal deficit. LABS: Sodium 133, potassium 3.3, creatinine is 4.48. Peritoneal dialysis cloudy with polynucleated WBCs. Body fluid cultures are showing Enterobacter cloacae which is polysensitive; this was done on 12/12. Urine culture showed Ghazala glabrata and E coli. REVIEW OF SYSTEMS: CARDIOVASCULAR SYSTEM: No angina. RESPIRATION: As mentioned earlier. GI: As mentioned earlier. : No dysuria. NERVOUS SYSTEM: No numbness, weakness. CURRENT MEDICATIONS: Reviewed. They include Tylenol, [place], Lipitor, Rocephin, fluconazole, Synthroid, Antivert, ProAmatine, Narcan. ASSESSMENT: 1. Acute peritonitis with abdominal pain and nausea with possible sepsis, present on admission. 2. Chronic renal failure, on peritoneal dialysis, end-stage renal disease. 3. Clostridium difficile colitis. 4. Left hip pain. 5. Shortness of breath with no history of chronic obstructive pulmonary disease. 6. Hyponatremia. 7. Hypomagnesemia. 8. Dizziness. 9. History of vertigo. 10.Hypertension. 11.History of rheumatoid arthritis. 12.Hypothyroidism. 13.History of anxiety. 14.Hypokalemia. 15.Increased white count. 16.Thrombocytopenia. 17.History of fall. 18.Gait dysfunction. 19.History of back surgery, degenerative joint disease. 20.History of anxiety. 21.FULL CODE. RECOMMENDATIONS AND DISCUSSION: In this 85-year-old woman who presented with multiple complex medical issues, we will monitor the patient closely, continue the current medications, continue with symptomatic treatment. Cultures are still positive. Will continue to monitor. PT/OT evaluation. CT scan of the abdomen noted. Will supplement potassium, magnesium. Guarded prognosis. Further recommendations to follow. Repeat labs in the morning. MMODL / IJN: [id number] / MTDD
[2020-12-14] MEDS ORDERED: POTASSIUM CHLORIDE ER 20 MEQ TAB.ER PO STA (23:31)
[2020-12-15] MEDS: SEVELAMER 800 MG TAB PO SCH ×3 (00:24→17:47)
[2020-12-15] MEDS: SODIUM CHLORIDE TAB 1 GM TAB PO SCH ×3 (00:25→20:05)
[2020-12-15] MEDS: DIALYSIS (PERIT 1.5%) 2,500 ML 30 G/2,000 ML BAG INTRAPERIT SCH ×4 (03:46→20:34)
[2020-12-15] MEDS: HYDROcodone/APAP 5-325MG 1 EACH TAB PO PRN ×2 (05:24→11:23)
[2020-12-15] MEDS: LEVOTHYROXINE 75 MCG TAB PO SCH (05:25)
[2020-12-15 07:30] LABS: Anisocytosis Slight; Basophils % (A) 0 %; Eosinophils # (A) 0.1 k/uL (0-0.7); Eosinophils % (A) 1 %; HGB 12.8 gm/dL (11.4-16.0); Lymphocytes # (A) 0.7 k/uL (1.0-4.8); Lymphocytes % (A) 7 %; MCH 31.6 pg (25.0-35.0); MCHC 33.7 g/dL (31.0-37.0); Mean Platelet Volume 15.3; Monocytes # (A) 0.6 k/uL (0-1.0); Monocytes % (A) 6 %; Neutrophils # (A) 8.5 k/uL (1.3-7.7); Neutrophils % (A) 85 %; Poikilocytosis Slight; RBC 4.05 m/uL (3.80-5.40)
[2020-12-15 08:44] LABS: Platelet Count 85 k/uL (150-450)
[2020-12-15 08:45] LABS: Crenated RBC Present; Large Platelets Present; RBC Fragments Present
[2020-12-15] MEDS: MIDODRINE 5 MG TAB PO SCH ×3 (09:01→20:05)
[2020-12-15] MEDS: VANCOMYCIN 125 MG CAPSULE PO SCH ×4 (09:01→20:05)
[2020-12-15] MEDS: ATORVASTATIN 20 MG TAB PO SCH (09:04)
[2020-12-15] MEDS: GABAPENTIN 300 MG CAP PO SCH ×2 (09:04→20:05)
[2020-12-15] MEDS: PANTOPRAZOLE 40 MG/10 ML VIAL IV SCH (09:04)
[2020-12-15] MEDS: FLUCONAZOLE IN NACL,ISO-OSM 100 MG in SALINE 1 50ML.BAG IVPB SCH (09:56)
[2020-12-15] MEDS: ACETAMINOPHEN TAB 325 MG TAB PO PRN (10:02)
[2020-12-15 12:04] LABS: African American GFR (CKD) 10.4 (60.0-200.0); Anion Gap 10.1 mmol/L (4.00-12.00); BUN/Creat Ratio 6.67 Ratio (12.00-20.00); Calcium 7.3 mg/dL (8.7-10.3); Carbon Dioxide 25.9 mmol/L (21.6-31.8); Magnesium 1.8 mg/dL (1.5-2.4); Potassium 3.9 mmol/L (3.5-5.5)
--- NOTE | 2020-12-15 18:38 | PN ---
PROGRESS NOTE Patient is seen for followup for end-stage renal disease. She is currently maintained on peritoneal dialysis. She was admitted with PD peritonitis and maintained on antibiotics. Initially, intraperitoneal, now, maintained on IV antibiotics. She was hyponatremic with low blood pressures and patient was started on sodium chloride tabs yesterday. Sodium has improved to 129 today. Overall, patient states she is feeling better. PHYSICAL EXAMINATION: On examination today, blood pressure 122/73, heart rate 82 per minute, she is afebrile. Examination of the heart S1, S2. Examination of lungs, decreased breath sounds at the bases. Abdomen is soft, nontender. Examination of lower extremities shows no evidence of edema. The patient has tenderness in the left hip area and back area. LAB: Show sodium 129, potassium 3.9, BUN 28, creatinine 4.2. ASSESSMENT: 1. End-stage renal disease maintained on peritoneal dialysis, continue current PD exchanges. 2. Hypovolemic hyponatremia, improved with sodium chloride tabs. 3. Chronic kidney disease mineral bone disorder. 4. Gram-negative bacteremia with PD peritonitis, maintained on antibiotics, clinically improved. 5. Clostridium difficile colitis, maintained on vancomycin. PLAN: Continue IV antibiotics. Continue PD exchanges along with current dose of sodium chloride tabs and continue oral vancomycin for C difficile colitis. MMODL / IJN: [id number] /
--- NOTE | 2020-12-15 18:41 | PN ---
PROGRESS NOTE DATE OF SERVICE: 12/15/2020 This 85-year-old woman who was admitted with acute peritonitis, also had continued abdominal pain. The most recent cultures are showing Enterobacter plaque on 12/12. No chest pain. No palpitations. No fever. PHYSICAL EXAMINATION: Alert and oriented x1. Pulse 84. Blood pressure 124/77, respirations 18. Temperature 97.4, pulse ox 94% on 3 L. HEENT: Conjunctivae normal. Neck no JVD. Cardiovascular: S1, S2 muffled. Respiration: Breath sounds diminished in the bases. No rhonchi. No crackles. Abdomen: Soft, nontender. Nervous system: No focal deficits. LABORATORY DATA: Sodium 129, potassium 3.9. Cortisol normal. ASSESSMENT: 1. Acute peritonitis with abdominal pain, nausea with possible sepsis, present on admission with Enterobacter cloacae. 2. Ghazala glabrata and E coli from the urine culture with UTI. 3. Chronic renal failure on peritoneal dialysis, end-stage renal disease. 4. C difficile colitis history. 5. Left hip pain. 6. Shortness of breath with COPD, acute exacerbation. 7. Hyponatremia. 8. Hypomagnesemia. 9. Change in mental status acute metabolic encephalopathy multifactorial. 10.Dizziness. 11.Gait dysfunction. 12.History of vertigo. 13.Hypertension. 14.History of rheumatoid arthritis. 15.Hypothyroidism. 16.History of anxiety. 17.Hypokalemia. 18.Increased WBC. 19.Thrombocytopenia. 20.History of fall. 21.Gait dysfunction. 22.History of back surgery, degenerative joint disease. 23.History of anxiety. 24.FULL CODE. RECOMMENDATIONS AND DISCUSSION: Recommend to continue current medications, management and symptomatic treatment. PT/OT evaluation. Continue the antibiotics. Repeat urine, repeat peritoneal fluid culture to ensure clearance. Repeat cultures. Closely follow with Infectious Disease. Guarded prognosis. Further recommendations to follow. MMODL / IJN: [id number] /
--- NOTE | 2020-12-15 23:27 | PN ---
PROGRESS NOTE DATE OF SERVICE: 12/15/2020 REASON FOR FOLLOWUP: 1. Enterobacter bacteremia secondary to dialysis catheter infection. 2. Enterobacter peritonitis. INTERVAL HISTORY: The patient is afebrile. The patient is currently breathing comfortably. Denies having any chest pain. No shortness of breath. No cough. No nausea, vomiting. No abdominal pain. Diarrhea has resolved. Did have a formed bowel movement x2 today per the nurse's aide. Patient seemed to be slightly upset PHYSICAL EXAMINATION: Blood pressure 98/66, pulse of 87, temperature 97.8. She is 94% on 2 L nasal cannula. General description is an elderly female lying in bed in no distress. Respiratory system: Unlabored breathing. Clear to auscultation anteriorly. Heart S1, S2. Regular rate and rhythm. Abdomen: Soft, mildly tender. No guarding. No rigidity. LABS: Hemoglobin is 12.1, white count 10.0. BUN of 28, creatinine 4.2. Repeat ascitic fluid did show worsening nucleated. DIAGNOSTIC IMPRESSION AND PLAN: 1. Patient with Enterobacter bacteremia concerning for dialysis catheter that will be discontinued. Also have Enterobacter peritoneal dialysis fluid, slight worsening of the white count. Patient is covered with Rocephin. Will discuss further with Nephrology. 2. C difficile colitis clinically responding to the oral vancomycin to continue to finish a 10 day course of therapy. MMODL / IJN: [id number] / MTDD
[2020-12-16 01:22] LABS: Appearance,BF Hazy; Color,BF Colorless; Nucleated Cells, Body Fluid 370 /uL; RBC, Body Fluid 20 /uL
[2020-12-16 01:40] LABS: Mononuclear WBC,Body Fluid 9 %; Polynuclear WBC,Body Fluid 91 %; Total Cells Counted,Body Fluid 100
[2020-12-16] MEDS: DIALYSIS (PERIT 1.5%) 2,500 ML 30 G/2,000 ML BAG INTRAPERIT SCH ×4 (02:25→21:34)
[2020-12-16] MEDS: LEVOTHYROXINE 75 MCG TAB PO SCH (05:13)
[2020-12-16] MEDS: SODIUM CHLORIDE TAB 1 GM TAB PO SCH ×2 (09:11→21:36)
[2020-12-16] MEDS: MIDODRINE 5 MG TAB PO SCH ×3 (09:11→21:36)
[2020-12-16] MEDS: GABAPENTIN 300 MG CAP PO SCH ×2 (09:11→21:36)
[2020-12-16] MEDS: ATORVASTATIN 20 MG TAB PO SCH (09:11)
[2020-12-16] MEDS: VANCOMYCIN 125 MG CAPSULE PO SCH ×4 (09:11→21:36)
[2020-12-16] MEDS: PANTOPRAZOLE 40 MG TABLET PO SCH (09:11)
[2020-12-16] MEDS: SEVELAMER 800 MG TAB PO SCH ×3 (09:11→17:16)
[2020-12-16] MEDS: FLUCONAZOLE 100 MG TAB PO SCH (09:12)
[2020-12-16] MEDS: ACETAMINOPHEN TAB 325 MG TAB PO PRN (10:31)
[2020-12-16] MEDS: HYDROcodone/APAP 5-325MG 1 EACH TAB PO PRN ×2 (13:52→19:25)
--- NOTE | 2020-12-16 17:22 | PN ---
PROGRESS NOTE Patient is seen for followup for end-stage renal disease. She is maintained on peritoneal dialysis. Patient was admitted with abdominal pain, was found to have PD peritonitis and bacteremia with blood cultures growing Enterobacter cloacae and fluid culture growing Enterobacter cloacae as well. So far, patient has been tolerating her peritoneal dialysis fairly well. She occasionally retains 200-300 cc. At this time she is not volume overloaded. Her oral intake is poor. There is a possibility of discharge to rehab unit where the patient will not be able to continue with PD and will need to be switched to hemodialysis. PHYSICAL EXAMINATION: On examination today, blood pressure is 124/73, heart rate 80 per minute. She is afebrile. Examination of the heart S1, S2. Examination of the lungs, bilateral breath sounds are heard. Abdomen is soft, nontender. Examination lower extremities shows no significant edema. NETWORK TECHNICAL ANALYST exam grossly intact. Patient is occasionally confused. LAB: Show sodium 129 from yesterday, potassium 3.9, BUN 28, creatinine 4.2. ASSESSMENT: 1. End-stage renal disease on peritoneal dialysis, continue current PD exchanges. 2. Peritoneal dialysis peritonitis with fluid culture and blood culture growing Enterobacter cloacae. Currently maintained on cefepime status post intraperitoneal antibiotics, now maintained on IV cefepime. 3. Hypovolemic hyponatremia with low blood pressure, improved with sodium chloride tabs. 4. Chronic kidney disease mineral bone disorder. 5. Clostridium difficile colitis, maintained on vancomycin p.o. PLAN: Continue current PD exchanges. If patient is discharged to rehab, she will need to switch to temporary hemodialysis. Continue with the antibiotics as per ID. MMODL / IJN: [id number] /
--- NOTE | 2020-12-16 23:49 | P.PN ---
Subjective Progress Note Date: 12/16/20 This is a pleasant 85-year-old female who originally presented to the emergency department at [place] for increased shortness of breath with possible infection and not feeling well with increased weakness over the last few days. Patient was transferred here to [facility] for further evaluation and nephrology evaluation. She reports to seeing Dr. Elizondo nephrology out of [place] as she lives in [place] and has been doing nightly peritoneal dialysis by herself. Patient states her primary care provider is Dr. Ray. Patient states she has not had much of an appetite and did have an episode of nausea with vomiting reported episodes of diarrhea. She states he has difficulty in eating and chewing. Patient states her last admission to hospital she was discharged on home oxygen at 2 L and patient presented here with continued shortness of breath and low oxygen saturations and currently on 4 L oxygen via nasal cannula. She was initiated on IV Rocephin and vancomycin and will consult infectious disease a possibility of peritonitis and/or possible urinary tract infection. Nephrology also consulted. Patient denies any chest pain or palpitations. Patient denies any recent sick contacts or fevers and states that her peritoneal fluid has been clear and no drainage or discharge noted around the site on her abdomen. Patient states she has also been having low blood pr essures and adjustments are being made in the outpatient setting by primary care provider. 12/12/2020 Patient is seen in follow-up this morning extremely lethargic and overall not feeling well with intermittent periods of nausea. C. diff testing was positive and patient was started on oral Vanco and infectious disease following closely. She did have a femoral catheter for dialysis which is being sent for microbiology and being removed. Patient continues with peritoneal dialysis with nephrology following closely. Patient also receiving peritoneal IV antibiotics in the form of cefepime and vancomycin. Patient's blood pressures have been running on the lower side and patient has midodrine as needed and will change to scheduled and monitor blood pressure closely. 12/13/2020 Patient is seen and evaluated in follow-up this morning continues to have abdominal discomfort and is also having some left hip pain and will order hip x- ray. Repeat chest x-ray ordered and pending. Will order CT abdomen and pelvis as well. She continues with peritoneal dialysis and most recently had right femoral line discontinued and sent for analysis and awaiting finalized cultures. Urine culture preliminary showing gram-negative bacilli along with the species and dialysate Gram stain preliminary also showing gram-negative with infectious disease following closely and patient is continued on IV antibiotics in the form of ceftriaxone along with peritoneal exchanges including cefepime per infectious disease recommendations. Patient continues with loose stools and being treated for C. diff with oral vancomycin. Blood pressure is improved today and patient is receiving midodrine 5 mg 3 times a day. Nephrology is following closely and morning labs continue to be pending. Patient is afebrile and continues to have shortness of breath and maintained on 3 L via nasal cannula. Encouraged oral intake and patient continues to have intermittent nausea and decreased oral intake with no real appetite. 12/16/2020 Patient is seen in follow up this morning and quite tearful on exam. Patient st ates she lost her son this weekend and would like to make the . Patient continues on IV antibiotics in the form of Ceftriaxone with infectious disease following closely. Patient also being followed closely by nephrology. Patient continues to be weak and will have PT/OT evaluate the patient as she is planning on ECF. Patient will also need hemodialysis if going to ecf. Patient continues to have left hip pain. Patient also continues on oral vanco for c-diff. Dialysate cultures showing enterobacter cloacae with urine culture showing ecoli and e. cloacae as well. Repeat peritoneal fluid culture pending. Review of systems: Constitutional: reports of fatigue, reports of fever or chills Cardiovascular: No reports of chest pain or palpitations Respiratory: no reports of shortness of breath GI: No reports of nausea, vomiting, reports formed stools : No reports of dysuria or retention Neurovascular: reports generalized weakness and patient also reporting left hip pain that continues All medications have been reviewed Active Medications Acetaminophen (Acetaminophen Tab 325 Mg Tab) 650 mg PO Q6HR PRN PRN Reason: Mild Pain or Fever > 100.5 Last Admin: 12/16/20 10:31 Dose: 650 mg Documented by: Hydrocodone Bitart/Acetaminophen (Hydrocodone/Apap 5-325mg 1 Each Tab) 0.5 each PO Q6HR PRN PRN Reason: Pain Hydrocodone Bitart/Acetaminophen (Hydrocodone/Apap 5-325mg 1 Each Tab) 1 each PO Q6HR PRN PRN Reason: Moderate to Severe Pain Last Admin: 12/16/20 19:25 Dose: 1 each Documented by: Atorvastatin Calcium (Atorvastatin 20 Mg Tab) 20 mg PO DAILY [facility] Last Admin: 12/16/20 09:11 Dose: 20 mg Documented by: Fluconazole (Fluconazole 100 Mg Tab) 100 mg PO DAILY [facility] Last Admin: 12/16/20 09:12 Dose: 100 mg Documented by: Gabapentin (Gabapentin 300 Mg Cap) 300 mg PO BID [facility] Last Admin: 12/16/20 21:36 Dose: 300 mg Documented by: Ceftriaxone Sodium 2 gm/ (Sodium Chloride) 50 mls @ 100 mls/hr IVPB Q24H [facility] Last Admin: 12/16/20 08:11 Dose: 100 mls/hr Documented by: Peritoneal Dialysis Solution (Delflex With 1.5% Dextrose (2,500 Ml)) 30 g in 2,000 mls @ 0 mls/hr INTRAPERIT Q6H [facility]; Protocol Last Admin: 12/16/20 21:34 Dose: 2,000 mls/hr Documented by: Levothyroxine Sodium (Levothyroxine 75 Mcg Tab) 75 mcg PO DAILY@0630 [facility] Last Admin: 12/16/20 05:13 Dose: 75 mcg Documented by: Meclizine HCl (Meclizine 12.5 Mg Tab) 12.5 mg PO DAILY PRN PRN Reason: DIZZINESS Midodrine (Midodrine 5 Mg Tab) 5 mg PO TID [facility] Last Admin: 12/16/20 21:36 Dose: 5 mg Documented by: Miscellaneous Information (Potassium Replacement Protocol 1 Each Misc) 1 each MISCELLANE DAILY PRN; Protocol PRN Reason: Per Protocol Miscellaneous Information (Magnesium Replacement Protocol 1 Each Misc) 1 each MISCELLANE DAILY PRN; Protocol PRN Reason: Per Protocol Naloxone HCl (Naloxone 0.4 Mg/Ml 1 Ml Vial) 0.2 mg IV Q2M PRN PRN Reason: Opioid Reversal Ondansetron HCl (Ondansetron 4 Mg/2 Ml Vial) 4 mg IVP Q8HR PRN PRN Reason: Nausea And Vomiting Last Admin: 12/13/20 19:54 Dose: 4 mg Documented by: Pantoprazole Sodium (Pantoprazole 40 Mg Tablet) 40 mg PO AC-[id number] [facility] Last Admin: 12/16/20 09:11 Dose: 40 mg Documented by: Sevelamer Carbonate (Sevelamer 800 Mg Tab) 1,600 mg PO Q8HR [facility] Last Admin: 12/16/20 17:16 Dose: 1,600 mg Documented by: Sodium Chloride (Sodium Chloride Tab 1 Gm Tab) 1 gm PO BID [facility] Last Admin: 12/16/20 21:36 Dose: 1 gm Documented by: Vancomycin HCl (Vancomycin 125 Mg Capsule) 125 mg PO QID [facility] Last Admin: 12/16/20 21:36 Dose: 125 mg Documented by: Physical exam: Gen: This is a pleasant 85-year-old female awake, alert and oriented 3 thin built. temp is 97.6F, pulse is 80, respirations are 15, blood pressure is 124/73, oxygen saturation is 91% on 3 L via nasal cannula HEENT: Head is atraumatic, normocephalic. Pupils equal, round. Sclerae is anicteric. NECK: Supple. No JVD. No lymphadenopathy. No thyromegaly. LUNGS: Diminished breath sounds bilaterally with some scattered rhonchi noted. HEART: S1, S2 are muffled ABDOMEN: Soft. Bowel sounds are present. No masses. No tenderness. Peritoneal dialysis catheter intact with no surrounding redness or drainage noted EXTREMITIES: No pedal edema. No calf tenderness. Left hip pain continues NEUROLOGICAL: Patient is awake, alert and oriented x3. Diffusely weak. Assessment and plan: Acute peritonitis with abdominal pain with nausea and vomiting possible sepsis, present on admission with enterobacter cloacae Clostridium difficile Left hip pain Ghazala glabrata and ecoli from with urine culture acute urinary tract infection, present on admission Shortness of breath with COPD acute exacerbation Hyponatremia secondary to renal failure Hypomagnesemia possibly secondary to diarrhea and poor oral intake change in mental status, acute metabolic encephalopathy, multifactorial Chronic renal failure with End-stage renal disease on peritoneal dialysis Dizziness Gait dysfunction History of vertigo Hypertension History of Rheumatoid arthritis Hypothyroidism History of back surgery, DJD History of Anxiety Full code Plan: Recommend to continue with current medications, management, and symptomatic treatment. Patient is continued on IV ceftriaxone with oral vanco. Will discuss with infectious disease along with nephrology about discharge planning and possible abx on discharge along with temporary hemodialysis and port placement if patient will be going to ECF. PT/OT to reevaluate the patient. Patient r ecently lost son over the weekend and would like to make his . Will discuss with other consultants about discharge planning. Case management and social work following. Encouraged increased activity as tolerated. Encouraged oral intake. Awaiting repeat dialysate cultures to finalize and monitor closely for clearance of bacteremia. Due to multiple complex medical issues, prognosis is guarded. Will repeat am labs. Objective - Vital Signs Vital signs: Vital Signs Temp 97.7 F 12/16/20 04:27 Pulse 89 12/16/20 04:27 Resp 20 12/16/20 04:27 BP 105/69 12/16/20 04:27 Pulse Ox 95 12/16/20 04:27 Intake & Output 12/15/20 12/16/20 12/16/20 18:59 06:59 18:59 Intake Total 300 Balance 300 Weight 56 kg Intake: Oral 300 Other: # Voids 0 # Bowel Movements 1 - Labs CBC & Chem 7: 12/15/20 06:13 12/15/20 06:17 Labs: Abnormal Lab Results - Last 24 Hours (Table) 12/15/20 Range/Units 06:17 Sodium 129 L (135-145) mmol/L Chloride 93 L (96-109) mmol/L BUN 28.0 H (9.0-27.0) mg/dL Creatinine 4.2 H (0.6-1.5) mg/dL Est GFR (CKD-EPI)AfAm 10.4 L (60.0-200.0) Est GFR (CKD-EPI)NonAf 9.0 L (60.0-200.0) BUN/Creatinine Ratio 6.67 L (12.00-20.00) Ratio Glucose 132 H (70-110) mg/dL Calcium 7.3 L (8.7-10.3) mg/dL Microbiology - Last 24 Hours (Table) 12/12/20 04:15 Blood Culture - Preliminary Blood No Growth after 96 hours 12/12/20 09:04 Blood Culture - Preliminary Blood No Growth after 72 hours 12/12/20 09:30 Blood Culture - Preliminary Blood No Growth after 72 hours 12/13/20 13:00 Gram Stain - Preliminary Dialysate Body Fluid Culture - Preliminary
[2020-12-17] MEDS: SEVELAMER 800 MG TAB PO SCH ×3 (01:16→15:44)
[2020-12-17] MEDS: DIALYSIS (PERIT 1.5%) 2,500 ML 30 G/2,000 ML BAG INTRAPERIT SCH ×3 (03:19→15:30)
[2020-12-17] MEDS: LEVOTHYROXINE 75 MCG TAB PO SCH (05:22)
--- NOTE | 2020-12-17 06:00 | PN ---
PROGRESS NOTE DATE OF SERVICE: 12/16/2020 REASON FOR FOLLOWUP: 1. bacteremia secondary to PD catheter associated peritonitis. 2. C difficile colitis. INTERVAL HISTORY: Patient is afebrile. The patient is breathing comfortably. Denies having any chest pain. No shortness of breath, cough. Abdominal pain is currently controlled and diarrhea has slowed down. PHYSICAL EXAMINATION: Blood pressure is 101/66, pulse of 73, temperature 97.8. She is 94% on 3 L. General description is an elderly female lying in bed in no distress. Respiratory system: Unlabored breathing, clear to auscultation anteriorly. Heart S1, S2. Regular rate and rhythm. Abdomen: Soft, mildly tender. No guarding. No rigidity. LABS: Hemoglobin is 12.9, white count of 10.0, BUN of 28, creatinine is 1.2. Peritoneal fluid WBC overall has decreased. DIAGNOSTIC IMPRESSION AND PLAN: 1. Patient with bacteremia source likely PD catheter associated peritonitis resistant pathogen in the peritoneal dialysis fluid. The patient is covered with Rocephin. Can be transitioned to Cipro on discharge. Discussed with document preparation specialist would like to keep the peritoneal dialysis catheter for now. 2. Patient with C difficile colitis clinically responded to oral vancomycin to continue to finish a 10 day course of therapy. MMODL / IJN: [id number] / [id number]
[2020-12-17 07:05] LABS: African American GFR (CKD) 13 (>60 ml/min/1.73 sqM); Anion Gap 5 mmol/L; Blood Urea Nitrogen 28 mg/dL (7-17); Calcium 7.3 mg/dL (8.4-10.2); Carbon Dioxide 24 mmol/L (22-30); Chloride 95 mmol/L (98-107); Glucose 128 mg/dL (74-99); Non-African American GFR(CKD) 12 (>60 ml/min/1.73 sqM); Potassium 4.1 mmol/L (3.5-5.1); Sodium 124 mmol/L (137-145)
[2020-12-17 07:23] LABS: Anisocytosis Slight; Basophils % (A) 0 %; Eosinophils # (A) 0.3 k/uL (0-0.7); Eosinophils % (A) 3 %; HCT 38.2 % (34.0-46.0); Lymphocytes # (A) 0.9 k/uL (1.0-4.8); Lymphocytes % (A) 8 %; MCH 31.5 pg (25.0-35.0); MCV 92.7 fL (80.0-100.0); Mean Platelet Volume 14.7; Monocytes # (A) 0.6 k/uL (0-1.0); Monocytes % (A) 6 %; Neutrophils # (A) 9.1 k/uL (1.3-7.7); Neutrophils % (A) 83 %; Platelet Count 127 k/uL (150-450); Poikilocytosis Slight; RBC 4.12 m/uL (3.80-5.40); RDW 16.3 % (11.5-15.5)
[2020-12-17] MEDS: MIDODRINE 5 MG TAB PO SCH ×2 (08:11→15:44)
[2020-12-17] MEDS: PANTOPRAZOLE 40 MG TABLET PO SCH (08:11)
[2020-12-17] MEDS: GABAPENTIN 300 MG CAP PO SCH (08:11)
[2020-12-17] MEDS: VANCOMYCIN 125 MG CAPSULE PO SCH ×3 (08:11→17:03)
[2020-12-17] MEDS: ATORVASTATIN 20 MG TAB PO SCH (08:11)
[2020-12-17] MEDS: FLUCONAZOLE 100 MG TAB PO SCH (08:11)
[2020-12-17] MEDS: HYDROcodone/APAP 5-325MG 1 EACH TAB PO PRN ×2 (08:11→15:44)
[2020-12-17] MEDS: SODIUM CHLORIDE TAB 1 GM TAB PO SCH ×2 (08:14→18:31)
[2020-12-17 11:12] LABS: Crenated RBC Present
[2020-12-17 11:13] LABS: Large Platelets Present; RBC Fragments Present
--- NOTE | 2020-12-17 16:06 | P.PN ---
Subjective Progress Note Date: 12/17/20 This is a pleasant 85-year-old female who originally presented to the emergency department at [place] for increased shortness of breath with possible infection and not feeling well with increased weakness over the last few days. Patient was transferred here to [facility] for further evaluation and nephrology evaluation. She reports to seeing Dr. Elizondo nephrology out of [place] as she lives in [place] and has been doing nightly peritoneal dialysis by herself. Patient states her primary care provider is Dr. Ray. Patient states she has not had much of an appetite and did have an episode of nausea with vomiting reported episodes of diarrhea. She states he has difficulty in eating and chewing. Patient states her last admission to hospital she was discharged on home oxygen at 2 L and patient presented here with continued shortness of breath and low oxygen saturations and currently on 4 L oxygen via nasal cannula. She was initiated on IV Rocephin and vancomycin and will consult infectious disease a possibility of peritonitis and/or possible urinary tract infection. Nephrology also consulted. Patient denies any chest pain or palpitations. Patient denies any recent sick contacts or fevers and states that her peritoneal fluid has been clear and no drainage or discharge noted around the site on her abdomen. Patient states she has also been having low blood pr essures and adjustments are being made in the outpatient setting by primary care provider. 12/12/2020 Patient is seen in follow-up this morning extremely lethargic and overall not feeling well with intermittent periods of nausea. C. diff testing was positive and patient was started on oral Vanco and infectious disease following closely. She did have a femoral catheter for dialysis which is being sent for microbiology and being removed. Patient continues with peritoneal dialysis with nephrology following closely. Patient also receiving peritoneal IV antibiotics in the form of cefepime and vancomycin. Patient's blood pressures have been running on the lower side and patient has midodrine as needed and will change to scheduled and monitor blood pressure closely. 12/13/2020 Patient is seen and evaluated in follow-up this morning continues to have abdominal discomfort and is also having some left hip pain and will order hip x- ray. Repeat chest x-ray ordered and pending. Will order CT abdomen and pelvis as well. She continues with peritoneal dialysis and most recently had right femoral line discontinued and sent for analysis and awaiting finalized cultures. Urine culture preliminary showing gram-negative bacilli along with the species and dialysate Gram stain preliminary also showing gram-negative with infectious disease following closely and patient is continued on IV antibiotics in the form of ceftriaxone along with peritoneal exchanges including cefepime per infectious disease recommendations. Patient continues with loose stools and being treated for C. diff with oral vancomycin. Blood pressure is improved today and patient is receiving midodrine 5 mg 3 times a day. Nephrology is following closely and morning labs continue to be pending. Patient is afebrile and continues to have shortness of breath and maintained on 3 L via nasal cannula. Encouraged oral intake and patient continues to have intermittent nausea and decreased oral intake with no real appetite. 12/16/2020 Patient is seen in follow up this morning and quite tearful on exam. Patient st ates she lost her son this weekend and would like to make the . Patient continues on IV antibiotics in the form of Ceftriaxone with infectious disease following closely. Patient also being followed closely by nephrology. Patient continues to be weak and will have PT/OT evaluate the patient as she is planning on ECF. Patient will also need hemodialysis if going to ecf. Patient continues to have left hip pain. Patient also continues on oral vanco for c-diff. Dialysate cultures showing enterobacter cloacae with urine culture showing ecoli and e. cloacae as well. Repeat peritoneal fluid culture pending. 12/17/2020 Patient is seen and evaluated this morning continues to have left leg pain and will order femur x-ray as hip x-ray was negative. Patient is continued on peritoneal dialysis with nephrology following closely and will discuss with possible temporary cath placement for hemodialysis as patient will be going to ECF and unable to accommodate CAPD exchanges. Urine culture finalized showing Ghazala glabrata along with E. coli and blood cultures remain negative. Initial Gram stain of dialysate finalized showing Enterobacter Cloacae infectious disease following closely. Repeat body fluid cultures have been negative and catheter tip was negative as well. Sodium continues to be low at 124 with a potassium of 4.1, BUNs 28 current creatinine is 3.41. White blood count is 11.0 and hemoglobin is stable at 13.0. Patient continues on IV ceftriaxone along with oral vancomycin for C. diff. Nephrology following closely and patient is maintained on sodium chloride tablets and continued peritoneal dialysis exchanges. Review of systems: Constitutional: reports of fatigue, reports of fever or chills Cardiovascular: No reports of chest pain or palpitations Respiratory: no reports of shortness of breath GI: No reports of nausea, vomiting, reports formed stools : No reports of dysuria or retention Neurovascular: reports generalized weakness and patient also reporting left leg pain that continues All medications have been reviewed Active Medications Acetaminophen (Acetaminophen Tab 325 Mg Tab) 650 mg PO Q6HR PRN PRN Reason: Mild Pain or Fever > 100.5 Last Admin: 12/16/20 10:31 Dose: 650 mg Documented by: Hydrocodone Bitart/Acetaminophen (Hydrocodone/Apap 5-325mg 1 Each Tab) 0.5 each PO Q6HR PRN PRN Reason: Pain Hydrocodone Bitart/Acetaminophen (Hydrocodone/Apap 5-325mg 1 Each Tab) 1 each PO Q6HR PRN PRN Reason: Moderate to Severe Pain Last Admin: 12/17/20 15:44 Dose: 1 each Documented by: Atorvastatin Calcium (Atorvastatin 20 Mg Tab) 20 mg PO DAILY [facility] Last Admin: 12/17/20 08:11 Dose: 20 mg Documented by: Fluconazole (Fluconazole 100 Mg Tab) 100 mg PO DAILY [facility] Last Admin: 12/17/20 08:11 Dose: 100 mg Documented by: Gabapentin (Gabapentin 300 Mg Cap) 300 mg PO BID [facility] Last Admin: 12/17/20 08:11 Dose: 300 mg Documented by: Ceftriaxone Sodium 2 gm/ (Sodium Chloride) 50 mls @ 100 mls/hr IVPB Q24H [facility] Last Admin: 12/17/20 08:13 Dose: 100 mls/hr Documented by: Peritoneal Dialysis Solution (Delflex With 1.5% Dextrose (2,500 Ml)) 30 g in 2,000 mls @ 0 mls/hr INTRAPERIT Q6H [facility]; Protocol Last Admin: 12/17/20 15:30 Dose: 2,000 mls/hr Documented by: Levothyroxine Sodium (Levothyroxine 75 Mcg Tab) 75 mcg PO DAILY@0630 [facility] Last Admin: 12/17/20 05:22 Dose: 75 mcg Documented by: Meclizine HCl (Meclizine 12.5 Mg Tab) 12.5 mg PO DAILY PRN PRN Reason: DIZZINESS Midodrine (Midodrine 5 Mg Tab) 5 mg PO TID [facility] Last Admin: 12/17/20 15:44 Dose: 5 mg Documented by: Miscellaneous Information (Potassium Replacement Protocol 1 Each Misc) 1 each MISCELLANE DAILY PRN; Protocol PRN Reason: Per Protocol Miscellaneous Information (Magnesium Replacement Protocol 1 Each Misc) 1 each MISCELLANE DAILY PRN; Protocol PRN Reason: Per Protocol Naloxone HCl (Naloxone 0.4 Mg/Ml 1 Ml Vial) 0.2 mg IV Q2M PRN PRN Reason: Opioid Reversal Ondansetron HCl (Ondansetron 4 Mg/2 Ml Vial) 4 mg IVP Q8HR PRN PRN Reason: Nausea And Vomiting Last Admin: 12/13/20 19:54 Dose: 4 mg Documented by: Pantoprazole Sodium (Pantoprazole 40 Mg Tablet) 40 mg PO [id number]-[id number] [facility] Last Admin: 12/17/20 08:11 Dose: 40 mg Documented by: Sevelamer Carbonate (Sevelamer 800 Mg Tab) 1,600 mg PO Q8HR [facility] Last Admin: 12/17/20 15:44 Dose: 1,600 mg Documented by: Sodium Chloride (Sodium Chloride Tab 1 Gm Tab) 1 gm PO BID [facility] Last Admin: 12/17/20 08:14 Dose: 1 gm Documented by: Vancomycin HCl (Vancomycin 125 Mg Capsule) 125 mg PO QID [facility] Last Admin: 12/17/20 13:31 Dose: 125 mg Documented by: Physical exam: Gen: This is a pleasant 85-year-old female awake, alert and oriented 3 thin b uilt. temp is 97.7F, pulse is 77, respirations are 18, blood pressure is 122/73, oxygen saturation is 98% on 3 L via nasal cannula HEENT: Head is atraumatic, normocephalic. Pupils equal, round. Sclerae is anicteric. NECK: Supple. No JVD. No lymphadenopathy. No thyromegaly. LUNGS: Diminished breath sounds bilaterally with some scattered rhonchi noted. HEART: S1, S2 are muffled ABDOMEN: Soft. Bowel sounds are present. No masses. No tenderness. Peritoneal dialysis catheter intact with no surrounding redness or drainage noted EXTREMITIES: No pedal edema. No calf tenderness. Left femur pain continues and radiating down NEUROLOGICAL: Patient is awake, alert and oriented x3. Diffusely weak. Assessment and plan: Acute peritonitis with abdominal pain with nausea and vomiting possible sepsis, present on admission with enterobacter cloacae Clostridium difficile Left hip and left femur pain Ghazala glabrata and ecoli from with urine culture acute urinary tract infection, present on admission Shortness of breath with COPD acute exacerbation Hyponatremia secondary to renal failure Hypomagnesemia possibly secondary to diarrhea and poor oral intake change in mental status, acute metabolic encephalopathy, multifactorial Chronic renal failure with End-stage renal disease on peritoneal dialysis Dizziness Gait dysfunction History of vertigo Hypertension History of Rheumatoid arthritis Hypothyroidism History of back surgery, DJD History of Anxiety Full code Plan: Recommend to continue with current medications, management, and symptomatic treatment. Patient is continued on IV ceftriaxone with oral vanco. Will discuss with infectious disease along with nephrology about discharge planning and possible abx on discharge along with temporary hemodialysis and port placement if patient will be going to ECF. PT/OT to reevaluate the patient. Patient recently lost son over the weekend and would like to make his . Will discuss with other consultants about discharge planning. Case management and social work following. Encouraged increased activity as tolerated. Encouraged o ral intake. repeat dialysate cultures as far have been negative and blood cultures remain negative as well. Due to multiple complex medical issues, prognosis is guarded. Will repeat am labs. Objective - Vital Signs Vital signs: Vital Signs Temp 97.7 F 12/17/20 04:27 Pulse 77 12/17/20 04:27 Resp 18 12/17/20 04:27 BP 122/73 12/17/20 04:27 Pulse Ox 98 12/17/20 04:27 Intake & Output 12/16/20 12/17/20 12/17/20 18:59 06:59 18:59 Intake Total 200 Output Total 20 Balance 180 Weight 56 kg 57.5 kg Intake: Oral 200 Output: Urine 20 Other: Voiding Method Indwelling Catheter # Voids 0 # Bowel Movements 1 - Labs CBC & Chem 7: 12/17/20 05:56 12/17/20 06:04 Labs: Abnormal Lab Results - Last 24 Hours (Table) 12/17/20 12/17/20 Range/Units 05:56 06:04 WBC 11.0 H (3.8-10.6) k/uL RDW 16.3 H (11.5-15.5) % Plt Count 127 L (150-450) k/uL Sodium 124 L (137-145) mmol/L Chloride 95 L (98-107) mmol/L BUN 28 H (7-17) mg/dL Creatinine 3.41 H (0.52-1.04) mg/dL Glucose 128 H (74-99) mg/dL Calcium 7.3 L (8.4-10.2) mg/dL Microbiology - Last 24 Hours (Table) 12/12/20 04:15 Blood Culture - Preliminary Blood No Growth after 120 hours 12/12/20 09:04 Blood Culture - Preliminary Blood No Growth after 96 hours 12/12/20 09:30 Blood Culture - Preliminary Blood No Growth after 96 hours 12/15/20 16:05 Body Fluid Culture - Preliminary Peritoneal Fluid
--- NOTE | 2020-12-17 17:00 | XR ---
RESULT: HISTORY: Left leg pain TECHNIQUE: 2 views of the left femur were obtained. COMPARISON: None. FINDINGS: There is no acute fracture or dislocation. The visualized joint spaces are preserved. Left knee arthr oplasty seen. IMPRESSION: No acute osseous abnormality.
--- NOTE | 2020-12-17 17:41 | PN ---
PROGRESS NOTE Patient is seen for followup for end-stage renal disease. Currently she is maintained on peritoneal dialysis. The patient was admitted with PD peritonitis. She is now on IV antibiotics. Blood cultures and peritoneal fluid cultures grew Enterobacter. PD fluid cell count has decreased, with WBCs down to 370. Overall patient denies any significant complaints. She has had hyponatremia and is maintained on sodium chloride tabs. Her blood pressure has been running on the lower side, for which she is maintained on midodrine. PHYSICAL EXAMINATION: On examination today, blood pressure is 109/56, heart rate 70 per minute. She is afebrile. EXAMINATION OF THE HEART: S1 and S2. EXAMINATION OF LUNGS: Bilateral breath sounds are heard. ABDOMEN: Soft, nontender. LOWER EXTREMITIES: Examination of lower extremities shows no significant edema. [employer] EXAM: Grossly intact. LABS: Sodium 124, potassium 4.1, serum creatinine 3.4. ASSESSMENT: 1. End-stage renal disease, maintained on peritoneal dialysis. Continue current PD exchanges. 2. Hypotension, maintained on midodrine. Will continue for now. Check random cortisol level if not done. It was checked on 12/15 and it was 14.7. 3. Hyponatremia; appears to be hypovolemic. Patient's sodium had improved with sodium chloride tabs. However, sodium today is back down to 124. I will increase the sodium chloride tabs to t.i.d. and repeat sodium in a.m. 4. PD peritonitis with fluid cultures growing Enterobacter cloacae and patient was also bacteremic with blood cultures growing Enterobacter from an outside facility where the patient initially presented. 5. Clostridium difficile colitis, maintained on oral vancomycin. PLAN: Continue antibiotics. Increase sodium chloride tabs to t.i.d. Continue current PD exchanges. MMODL / IJN: [id number] /
--- NOTE | 2020-12-17 18:29 | PN ---
PROGRESS NOTE DATE OF SERVICE: 12/17/2020 REASON FOR FOLLOWUP: 1. Enterobacter bacteremia secondary to the PD catheter peritonitis. 2. C difficile colitis. The patient is afebrile. The patient is breathing comfortably. Still complaining of some abdominal pain. No nausea, no vomiting and diarrhea seems to have improved. The patient had a small bowel movement yesterday. PHYSICAL EXAMINATION: Blood pressure 109/56. Pulse of 70. Temperature 97.7. She is 94% on 4 L nasal cannula. General description is an elderly female lying in bed in no distress. Respiratory system: Unlabored breathing, clear to auscultation anteriorly. Heart S1, S2. Regular rate and rhythm. Abdomen: Soft. Mildly distended. No guarding. No rigidity. LABS: BUN of 28, creatinine 3.41. DIAGNOSTIC IMPRESSION/PLAN: 1. The patient with Enterobacter bacteremia secondary to catheter associated peritonitis. Repeat culture has been negative. She is on Rocephin. Transition to oral Cipro to finish a course of therapy. 2. C difficile colitis clinically responding to oral vancomycin to continue to finish a 10 day course of therapy. MMODL / IJN: [id number] /
[2020-12-17] MEDS: ONDANSETRON 4 MG/2 ML VIAL IVP PRN (21:56)
[2020-12-18] MEDS: MIDODRINE 5 MG TAB PO SCH ×4 (00:50→23:20)
[2020-12-18] MEDS: GABAPENTIN 300 MG CAP PO SCH ×3 (00:50→23:19)
[2020-12-18] MEDS: SODIUM CHLORIDE TAB 1 GM TAB PO SCH ×4 (00:50→23:20)
[2020-12-18] MEDS: VANCOMYCIN 125 MG CAPSULE PO SCH ×6 (00:50→23:20)
[2020-12-18] MEDS: DIALYSIS (PERIT 1.5%) 2,500 ML 30 G/2,000 ML BAG INTRAPERIT SCH ×4 (01:03→17:30)
[2020-12-18] MEDS: SEVELAMER 800 MG TAB PO SCH ×3 (01:04→15:10)
[2020-12-18 05:28] LABS: Anisocytosis Slight; Basophils % (A) 0 %; Eosinophils % (A) 0 %; HCT 40.5 % (34.0-46.0); HGB 13.7 gm/dL (11.4-16.0); Lymphocytes # (A) 0.5 k/uL (1.0-4.8); Lymphocytes % (A) 3 %; MCH 31.6 pg (25.0-35.0); MCHC 33.8 g/dL (31.0-37.0); MCV 93.6 fL (80.0-100.0); Mean Platelet Volume 13.4; Monocytes # (A) 0.6 k/uL (0-1.0); Monocytes % (A) 3 %; Neutrophils # (A) 19.8 k/uL (1.3-7.7); Neutrophils % (A) 94 %; Platelet Count 140 k/uL (150-450); Poikilocytosis Slight; RBC 4.33 m/uL (3.80-5.40); RDW 16.4 % (11.5-15.5)
[2020-12-18 05:44] LABS: African American GFR (CKD) 13 (>60 ml/min/1.73 sqM); Anion Gap 10 mmol/L; Blood Urea Nitrogen 27 mg/dL (7-17); Calcium 7.6 mg/dL (8.4-10.2); Carbon Dioxide 20 mmol/L (22-30); Chloride 94 mmol/L (98-107); Glucose 186 mg/dL (74-99); Magnesium 1.7 mg/dL (1.6-2.3); Non-African American GFR(CKD) 11 (>60 ml/min/1.73 sqM); Potassium 3.7 mmol/L (3.5-5.1); Sodium 124 mmol/L (137-145)
[2020-12-18] MEDS: LEVOTHYROXINE 75 MCG TAB PO SCH (08:07)
[2020-12-18] MEDS: ATORVASTATIN 20 MG TAB PO SCH (08:11)
[2020-12-18] MEDS: PANTOPRAZOLE 40 MG TABLET PO SCH (08:11)
[2020-12-18] MEDS: FLUCONAZOLE 100 MG TAB PO SCH (08:11)
[2020-12-18] MEDS: ONDANSETRON 4 MG/2 ML VIAL IVP PRN ×2 (08:19→19:45)
[2020-12-18] MEDS: MAGNESIUM SULFATE-D5W PMX 1 GM in DEXTROSE/WATER 1 100ML.BAG IVPB SCH ×2 (09:54→11:01)
[2020-12-18 14:40] LABS: Appearance,BF Clear; Color,BF Yellow
[2020-12-18 14:41] LABS: Nucleated Cells, Body Fluid 26 /uL; RBC, Body Fluid 11 /uL
[2020-12-18] MEDS: HYDROcodone/APAP 5-325MG 1 EACH TAB PO PRN (15:10)
[2020-12-18 15:21] LABS: Mononuclear WBC,Body Fluid 21 %; Polynuclear WBC,Body Fluid 77 %; Total Cells Counted,Body Fluid 100
--- NOTE | 2020-12-18 20:01 | PN ---
PROGRESS NOTE Patient is seen for followup for end-stage renal disease, currently maintained on peritoneal dialysis. Patient had PD peritonitis and is maintained on antibiotics. Her PD cell count had decreased and patient's symptoms had improved significantly. However, this morning she states that she is having abdominal pain. She has also been vomiting. The patient has had decreased oral intake. There are plans for discharge to rehab, which, if it occurs, patient will need to switch to temporary hemodialysis. PHYSICAL EXAMINATION: On examination today, blood pressure is 115/71, heart rate 106 per minute. Patient is afebrile. EXAMINATION OF THE HEART: S1 and S2. EXAMINATION OF LUNGS: Bilateral breath sounds are heard. ABDOMEN: Soft. There is tenderness noted in the upper abdomen. LOWER EXTREMITIES: Examination of lower extremities shows no evidence of edema. [employer]NAGER [employer] EXAM: Grossly intact. LABS: Sodium 124, potassium 3.7, chloride 94, BUN 26, serum creatinine 3.46. White cell count 21.0, hemoglobin 13.7. ASSESSMENT: 1. End-stage renal disease, maintained on peritoneal dialysis. The patient is tolerating treatments fairly well. She has been retaining about 100 to 200 mL. At this time she has not been eating much. Therefore this has not resulted in significant volume overload yet. I will continue with the current PD solutions q.6 hours. 2. Peritoneal peritonitis, currently improved. The PD fluid will be sent out again today, as patient is complaining of pain today associated with vomiting. So far, the white cell count had been decreasing. Continue with the antibiotics IV. Fluid culture and blood culture grew Enterobacter cloacae. 3. Hyponatremia, mostly hypovolemic and associated with decreased oral intake. Patient has also been hypotensive. Currently maintained on sodium chloride tabs, which I will continue for now. Serum sodium remains low. I will give her a dose of tolvaptan. 4. Clostridium difficile colitis, maintained on oral vancomycin. PLAN: Check PD fluid cell count. Tolvaptan 15 mg p.o. today. Continue current PD exchanges. Continue with sodium chloride tabs. Antibiotics as per ID. If the fluid cell count is increased, we will need to remove her PD catheter. However, if it continues to improve, we may continue with the PD, although patient will need temporary hemodialysis if she is discharged to a halfway. She does have an AV fistula which can be used for hemodialysis. MMODL / IJN: [id number] /
--- NOTE | 2020-12-18 22:48 | PN ---
PROGRESS NOTE DATE OF SERVICE: 12/18/2020 REASON FOR FOLLOWUP: 1. Enterobacter bacteremia secondary to PD catheter-associated peritonitis. 2. C difficile colitis. INTERVAL HISTORY: The patient is afebrile. She is still complaining of feeling nauseated and some abdominal pain, though. No chest pain, shortness of breath or cough and diarrhea has resolved. PHYSICAL EXAMINATION: Blood pressure 110/71, pulse of 121, temperature 97.4. She is 92% on 3 L nasal cannula. GENERAL DESCRIPTION: General description is an elderly female lying in bed in no distress. RESPIRATORY SYSTEM: Unlabored breathing. Clear to auscultation anteriorly. HEART: S1, S2. Regular rate and rhythm. ABDOMEN: Soft. Mildly distended. No guarding or rigidity. LABS: Hemoglobin is 13.3, white count of 21,000, BUN of 27, creatinine 3.46. DIAGNOSTIC IMPRESSION AND PLAN: 1. Patient with enterobacter bacteremia. Source is PD catheter-associated peritonitis with repeat blood culture negative but a jump in the white count is slightly concerning. The patient with Cipro. That will be continued . 2. Patient with Clostridium difficile colitis, clinically responding to the oral vancomycin, to finish her 10-day course of therapy. MMODL / IJN: [id number] / MTDD
[2020-12-19] MEDS: DIALYSIS (PERIT 1.5%) 2,500 ML 30 G/2,000 ML BAG INTRAPERIT SCH ×2 (00:43→06:15)
[2020-12-19] MEDS: SEVELAMER 800 MG TAB PO SCH ×4 (00:44→23:32)
[2020-12-19] MEDS: HYDROcodone/APAP 5-325MG 1 EACH TAB PO PRN ×3 (01:39→21:02)
--- NOTE | 2020-12-19 05:30 | P.PN ---
Subjective Progress Note Date: 12/18/20 This is a pleasant 85-year-old female who originally presented to the emergency department at [place] for increased shortness of breath with possible infection and not feeling well with increased weakness over the last few days. Patient was transferred here to [facility] for further evaluation and nephrology evaluation. She reports to seeing Dr. Elizondo nephrology out of [place] as she lives in [place] and has been doing nightly peritoneal dialysis by herself. Patient states her primary care provider is Dr. Ray. Patient states she has not had much of an appetite and did have an episode of nausea with vomiting reported episodes of diarrhea. She states he has difficulty in eating and chewing. Patient states her last admission to hospital she was discharged on home oxygen at 2 L and patient presented here with continued shortness of breath and low oxygen saturations and currently on 4 L oxygen via nasal cannula. She was initiated on IV Rocephin and vancomycin and will consult infectious disease a possibility of peritonitis and/or possible urinary tract infection. Nephrology also consulted. Patient denies any chest pain or palpitations. Patient denies any recent sick contacts or fevers and states that her peritoneal fluid has been clear and no drainage or discharge noted around the site on her abdomen. Patient states she has also been having low blood pr essures and adjustments are being made in the outpatient setting by primary care provider. 12/12/2020 Patient is seen in follow-up this morning extremely lethargic and overall not feeling well with intermittent periods of nausea. C. diff testing was positive and patient was started on oral Vanco and infectious disease following closely. She did have a femoral catheter for dialysis which is being sent for microbiology and being removed. Patient continues with peritoneal dialysis with nephrology following closely. Patient also receiving peritoneal IV antibiotics in the form of cefepime and vancomycin. Patient's blood pressures have been running on the lower side and patient has midodrine as needed and will change to scheduled and monitor blood pressure closely. 12/13/2020 Patient is seen and evaluated in follow-up this morning continues to have abdominal discomfort and is also having some left hip pain and will order hip x- ray. Repeat chest x-ray ordered and pending. Will order CT abdomen and pelvis as well. She continues with peritoneal dialysis and most recently had right femoral line discontinued and sent for analysis and awaiting finalized cultures. Urine culture preliminary showing gram-negative bacilli along with the species and dialysate Gram stain preliminary also showing gram-negative with infectious disease following closely and patient is continued on IV antibiotics in the form of ceftriaxone along with peritoneal exchanges including cefepime per infectious disease recommendations. Patient continues with loose stools and being treated for C. diff with oral vancomycin. Blood pressure is improved today and patient is receiving midodrine 5 mg 3 times a day. Nephrology is following closely and morning labs continue to be pending. Patient is afebrile and continues to have shortness of breath and maintained on 3 L via nasal cannula. Encouraged oral intake and patient continues to have intermittent nausea and decreased oral intake with no real appetite. 12/16/2020 Patient is seen in follow up this morning and quite tearful on exam. Patient st ates she lost her son this weekend and would like to make the . Patient continues on IV antibiotics in the form of Ceftriaxone with infectious disease following closely. Patient also being followed closely by nephrology. Patient continues to be weak and will have PT/OT evaluate the patient as she is planning on ECF. Patient will also need hemodialysis if going to ecf. Patient continues to have left hip pain. Patient also continues on oral vanco for c-diff. Dialysate cultures showing enterobacter cloacae with urine culture showing ecoli and e. cloacae as well. Repeat peritoneal fluid culture pending. 12/17/2020 Patient is seen and evaluated this morning continues to have left leg pain and will order femur x-ray as hip x-ray was negative. Patient is continued on peritoneal dialysis with nephrology following closely and will discuss with possible temporary cath placement for hemodialysis as patient will be going to ECF and unable to accommodate CAPD exchanges. Urine culture finalized showing Ghazala glabrata along with E. coli and blood cultures remain negative. Initial Gram stain of dialysate finalized showing Enterobacter Cloacae infectious disease following closely. Repeat body fluid cultures have been negative and catheter tip was negative as well. Sodium continues to be low at 124 with a potassium of 4.1, BUNs 28 current creatinine is 3.41. White blood count is 11.0 and hemoglobin is stable at 13.0. Patient continues on IV ceftriaxone along with oral vancomycin for C. diff. Nephrology following closely and patient is maintained on sodium chloride tablets and continued peritoneal dialysis exchanges. 12/18/2020 Patient is seen in follow up this morning and has been having nausea with vomiting and increased abdominal pain. Patient is maintained on IV antibiotics along with oral vanco for cdiff. Patient WBC elevated to 21 today and intake has been poor. Sodium remains low and worsened today to 124. Nephrology and infectious disease following. Femur xray was negative. Discussed with nephrology about placing temporary dialysis catheter as she will be going to ECF once stabilized and consult to vascular surgery Dr. Washington consulted. Patient does h ave an AV fistula in the left arm from previous. Cell count of PD fluid sent for analysis and pending. Review of systems: Constitutional: reports of fatigue, no reports of fever or chills Cardiovascular: No reports of chest pain or palpitations Respiratory: no reports of shortness of breath GI: reports of nausea, with vomiting, reports formed stools, reporting abdominal pain : No reports of dysuria or retention Neurovascular: reports generalized weakness All medications have been reviewed Active Medications Acetaminophen (Acetaminophen Tab 325 Mg Tab) 650 mg PO Q6HR PRN PRN Reason: Mild Pain or Fever > 100.5 Last Admin: 12/16/20 10:31 Dose: 650 mg Documented by: Hydrocodone Bitart/Acetaminophen (Hydrocodone/Apap 5-325mg 1 Each Tab) 0.5 each PO Q6HR PRN PRN Reason: Pain Hydrocodone Bitart/Acetaminophen (Hydrocodone/Apap 5-325mg 1 Each Tab) 1 each PO Q6HR PRN PRN Reason: Moderate to Severe Pain Last Admin: 12/19/20 01:39 Dose: 1 each Documented by: Atorvastatin Calcium (Atorvastatin 20 Mg Tab) 20 mg PO DAILY [facility] Last Admin: 12/18/20 08:11 Dose: 20 mg Documented by: Fluconazole (Fluconazole 100 Mg Tab) 100 mg PO DAILY [facility] Last Admin: 12/18/20 08:11 Dose: 100 mg Documented by: Gabapentin (Gabapentin 300 Mg Cap) 300 mg PO BID [facility] Last Admin: 12/18/20 23:19 Dose: Not Given Documented by: Ceftriaxone Sodium 2 gm/ (Sodium Chloride) 50 mls @ 100 mls/hr IVPB Q24H [facility] Last Admin: 12/18/20 08:12 Dose: 100 mls/hr Documented by: Peritoneal Dialysis Solution (Delflex With 1.5% Dextrose (2,500 Ml)) 30 g in 2,000 mls @ 0 mls/hr INTRAPERIT Q6H [facility]; Protocol Last Admin: 12/19/20 00:43 Dose: 2,000 mls/hr Documented by: Levothyroxine Sodium (Levothyroxine 75 Mcg Tab) 75 mcg PO DAILY@0630 [facility] Last Admin: 12/18/20 08:07 Dose: Not Given Documented by: Meclizine HCl (Meclizine 12.5 Mg Tab) 12.5 mg PO DAILY PRN PRN Reason: DIZZINESS Midodrine (Midodrine 5 Mg Tab) 5 mg PO TID [facility] Last Admin: 12/18/20 23:20 Dose: Not Given Documented by: Miscellaneous Information (Potassium Replacement Protocol 1 Each Misc) 1 each MISCELLANE DAILY PRN; Protocol PRN Reason: Per Protocol Miscellaneous Information (Magnesium Replacement Protocol 1 Each Misc) 1 each MISCELLANE DAILY PRN; Protocol PRN Reason: Per Protocol Naloxone HCl (Naloxone 0.4 Mg/Ml 1 Ml Vial) 0.2 mg IV Q2M PRN PRN Reason: Opioid Reversal Ondansetron HCl (Ondansetron 4 Mg/2 Ml Vial) 4 mg IVP Q8HR PRN PRN Reason: Nausea And Vomiting Last Admin: 12/18/20 19:45 Dose: 4 mg Documented by: Pantoprazole Sodium (Pantoprazole 40 Mg Tablet) 40 mg PO AC-BRKFST [facility] Last Admin: 12/18/20 08:11 Dose: 40 mg Documented by: Sevelamer Carbonate (Sevelamer 800 Mg Tab) 1,600 mg PO Q8HR [facility] Last Admin: 12/19/20 00:44 Dose: Not Given Documented by: Sodium Chloride (Sodium Chloride Tab 1 Gm Tab) 1 gm PO TID [facility] Last Admin: 12/18/20 23:20 Dose: Not Given Documented by: Vancomycin HCl (Vancomycin 125 Mg Capsule) 125 mg PO QID [facility] Last Admin: 12/18/20 23:20 Dose: Not Given Documented by: Physical exam: Gen: This is a pleasant 85-year-old female awake, alert and oriented 3 thin built. Ill appearing HEENT: Head is atraumatic, normocephalic. Pupils equal, round. Sclerae is anicteric. NECK: Supple. No JVD. No lymphadenopathy. No thyromegaly. LUNGS: Diminished breath sounds bilaterally with some scattered rhonchi noted. HEART: S1, S2 are muffled ABDOMEN: Soft. Bowel sounds are present. No masses. tender on palpation. P eritoneal dialysis catheter intact with no surrounding redness or drainage noted EXTREMITIES: No pedal edema. No calf tenderness. Left femur pain continues and radiating down NEUROLOGICAL: Patient is awake, alert and oriented x3. Diffusely weak. Assessment and plan: abdominal pain with nausea and vomiting possible sepsis, present on admission with enterobacter cloacae Enterobacter cloacae bacteremia secondary to peritoneal dialysis catheter associated peritonitis Clostridium difficile Left hip and left femur pain Ghazala glabrata and ecoli from with urine culture acute urinary tract in fection, present on admission Shortness of breath with COPD acute exacerbation Hyponatremia secondary to renal failure Hypomagnesemia possibly secondary to diarrhea and poor oral intake change in mental status, acute metabolic encephalopathy, multifactorial Chronic renal failure with End-stage renal disease on peritoneal dialysis Dizziness Gait dysfunction History of vertigo Hypertension History of Rheumatoid arthritis Hypothyroidism History of back surgery, DJD History of Anxiety Full code Plan: Recommend to continue with current medications, management, and symptomatic treatment. Patient is continued on IV ceftriaxone with oral vanco. Will discuss with infectious disease along with nephrology about discharge planning and possible abx on discharge along with temporary hemodialysis and port placement if patient will be going to ECF. Patient has a pre-existing AV fistula in the left arm and will need to assess for possible hemodialysis. Vascular consulted and placed on hold for today as WBC went up and patient having increased abdominal pain and nausea and vomiting. Possibility of PD cath removal if cell count is elevated. Nephrology following closely. Patient sodium is low today at 124 and will receive a dose of [place]. Repeat labs in the am. PT/OT to reevaluate the patient. Case management and social work following. Encouraged increased activity as tolerated. Encouraged oral intake. repeat dialysate cultures thus far have been negative and blood cultures remain negative as well. Due to multiple complex medical issues, prognosis is guarded. Will repeat am labs. Objective - Vital Signs Vital signs: Vital Signs Temp 95.6 F L 12/18/20 04:35 Pulse 112 H 12/18/20 04:35 Resp 20 12/18/20 04:35 BP 117/73 12/18/20 04:35 Pulse Ox 100 12/18/20 04:35 Intake & Output 12/17/20 12/18/20 12/18/20 18:59 06:59 18:59 Intake Total 450 Output Total 1 Balance -1 450 Weight 56 kg Intake: Oral 450 Output: Urine 1 Other: Voiding Method Indwelling Catheter Indwelling Catheter # Voids 2 # Bowel Movements 2 - Labs CBC & Chem 7: 12/18/20 04:39 12/18/20 04:41 Labs: Abnormal Lab Results - Last 24 Hours (Table) 12/17/20 12/18/20 12/18/20 Range/Units 05:56 04:39 04:41 WBC 21.0 H (3.8-10.6) k/uL RDW 16.4 H (11.5-15.5) % Plt Count 140 L (150-450) k/uL Neutrophils # 9.1 H 19.8 H (1.3-7.7) k/uL Lymphocytes # 0.9 L 0.5 L (1.0-4.8) k/uL Sodium 124 L (137-145) mmol/L Chloride 94 L (98-107) mmol/L Carbon Dioxide 20 L (22-30) mmol/L BUN 27 H (7-17) mg/dL Creatinine 3.46 H (0.52-1.04) mg/dL Glucose 186 H (74-99) mg/dL Calcium 7.6 L (8.4-10.2) mg/dL Microbiology - Last 24 Hours (Table) 12/12/20 04:15 Blood Culture - Final Blood No Growth after 144 hours 12/17/20 10:30 Body Fluid Culture - Preliminary Peritoneal Fluid 12/12/20 09:04 Blood Culture - Preliminary Blood No Growth after 120 hours 12/12/20 09:30 Blood Culture - Preliminary Blood No Growth after 120 hours 12/15/20 16:05 Gram Stain - Preliminary Peritoneal Fluid Body Fluid Culture - Preliminary 12/13/20 13:00 Gram Stain - Final Dialysate Body Fluid Culture - Final
[2020-12-19] MEDS: LEVOTHYROXINE 75 MCG TAB PO SCH (06:16)
[2020-12-19 07:01] LABS: African American GFR (CKD) 14 (>60 ml/min/1.73 sqM); Anion Gap 5 mmol/L; Blood Urea Nitrogen 27 mg/dL (7-17); Calcium 7.7 mg/dL (8.4-10.2); Carbon Dioxide 28 mmol/L (22-30); Chloride 94 mmol/L (98-107); Glucose 69 mg/dL (74-99); Magnesium 2.2 mg/dL (1.6-2.3); Non-African American GFR(CKD) 12 (>60 ml/min/1.73 sqM); Potassium 3.6 mmol/L (3.5-5.1); Sodium 127 mmol/L (137-145)
[2020-12-19 07:12] LABS: Anisocytosis Slight; Basophils # (A) 0.1 k/uL (0-0.2); Basophils % (A) 0 %; Eosinophils # (A) 0.1 k/uL (0-0.7); Eosinophils % (A) 0 %; HCT 35.4 % (34.0-46.0); HGB 11.8 gm/dL (11.4-16.0); Lymphocytes # (A) 0.6 k/uL (1.0-4.8); Lymphocytes % (A) 2 %; MCH 30.9 pg (25.0-35.0); MCHC 33.2 g/dL (31.0-37.0); Mean Platelet Volume 13.6; Monocytes # (A) 1.6 k/uL (0-1.0); Monocytes % (A) 6 %; Neutrophils # (A) 24.5 k/uL (1.3-7.7); Neutrophils % (A) 91 %; Platelet Count 143 k/uL (150-450); Poikilocytosis Slight; RBC 3.81 m/uL (3.80-5.40); RDW 16.3 % (11.5-15.5)
[2020-12-19 08:17] LABS: Crenated RBC Present; RBC Fragments Present
[2020-12-19 08:18] LABS: Large Platelets Present
[2020-12-19] MEDS: VANCOMYCIN 125 MG CAPSULE PO SCH ×4 (09:10→20:37)
[2020-12-19] MEDS: MIDODRINE 5 MG TAB PO SCH ×3 (09:10→20:37)
[2020-12-19] MEDS: GABAPENTIN 300 MG CAP PO SCH ×2 (09:10→20:37)
[2020-12-19] MEDS: ATORVASTATIN 20 MG TAB PO SCH (09:10)
[2020-12-19] MEDS: SODIUM CHLORIDE TAB 1 GM TAB PO SCH ×3 (09:10→20:37)
[2020-12-19] MEDS: PANTOPRAZOLE 40 MG TABLET PO SCH (09:11)
[2020-12-19] MEDS: FLUCONAZOLE 100 MG TAB PO SCH (09:11)
--- NOTE | 2020-12-19 09:21 | XR ---
EXAMINATION TYPE: XR chest 1V portable DATE OF EXAM: 12/19/2020 COMPARISON: 12/13/2020 HISTORY: Shortness of breath TECHNIQUE: Single frontal view of the chest is obtained. FINDINGS: Persistent diffuse interstitial pattern with bilateral pleural effusion and consolidation. Heart size stable. Atherosclerotic change aorta. Chronic deformity of the right humerus. Diffuse ost eopenia. Linear tiny lucency along the right lung apex. IMPRESSION: 1. Linear lucency along the right lung apex may be related to soft tissue artifact rather than tiny p neumothorax. Repeat chest x-ray recommended. 2. Persistent diffuse pleural-parenchymal changes correlate for CHF or diffuse pneumonia.
[2020-12-19] MEDS: LIDOCAINE 5% PATCH TOPICAL SCH (11:07)
[2020-12-19] MEDS ORDERED: DIALYSIS (PERIT 4.25%) 2000 ML 85 G/2,000 ML BAG INTRAPERIT ONE (12:00)
--- NOTE | 2020-12-19 12:05 | US ---
EXAMINATION TYPE: US venous doppler duplex UE LT DATE OF EXAM: 12/19/2020 COMPARISON: NONE CLINICAL HISTORY: swelling, preexisting AV fistula?. Prominent superficial vein posterior left wrist was noted after arm was dependent near exam's end. SIDE PERFORMED: left Left Arm: Negative for DVT Assessment of Arteriovenous fistula: distal posterior superficial vein with thrill/ arterial pulsatio n was noted at exam's end after left arm dependency was achieved. Left superficial A/V fistula is pat ent and seen anteriorly from upper arm to distal wrist. High PSV flow seen in left arm arteries and n oted throughout. IMPRESSION: Correlate for AV fistula which is patent.
--- NOTE | 2020-12-19 13:36 | PN ---
PROGRESS NOTE The patient is an 85-year-old female on peritoneal dialysis, admitted to the hospital with PD peritonitis. Fluid culture and blood cultures are growing Enterobacter cloacae. Patient is maintained on antibiotics. Her PD fluid cell count has decreased significantly, with cell count now down to 26 from 3400 at peak. Overall symptoms have improved as well. This morning patient is slightly short of breath. She does have some edema in lower extremities and she has not been getting a lot of ultrafiltration with her PD exchanges. She is currently maintained on 1.5% solutions q.6 hours. PHYSICAL EXAMINATION: On examination today, blood pressure is 116/78, heart rate 104 per minute. She is afebrile. EXAMINATION OF THE HEART: S1 and S2. EXAMINATION OF LUNGS: Decreased breath sounds at the bases. Basal crackles heard. ABDOMEN: Soft, nontender. LOWER EXTREMITIES: Examination of lower extremities shows edema 1+ bilaterally. UX SPECIALIST EXAM: Grossly intact. LABS: Labs show sodium 127, potassium 3.6, BUN 27, creatinine 3.25, hemoglobin 11.8 g/dL. ASSESSMENT: 1. End-stage renal disease, on peritoneal dialysis, currently with volume overload. I will change the exchanges to 2.5% solutions q.6 hours and add a 4.25% solution exchange now. There has not been any fibrin in the bag. We will continue without heparin for now. The patient will need to switch to temporary hemodialysis if she is going to rehab. She does have an AV fistula in her left forearm. However, I am not sure if this is mature yet. It was done end of . Vascular Surgery is on consult. If this is not ready, patient will need a PermCath placed prior to discharge. We will leave the PD catheter in while she is at the rehab, and it will be followed by the PD nurses once patient is discharged from rehab. 2. Hyponatremia associated with decreased oral intake, maintained on sodium chloride tabs, which I will continue for now. The patient is also mildly hypervolemic. Expect improvement in the sodium with improvement in volume status and continue with the sodium chloride tabs. Sodium has improved to 127. 3. Generalized debility. 4. Mild volume overload. Expect improvement with increased concentration of PD fluid. 5. Clostridium difficile colitis. Continue with oral vancomycin. PLAN: Change next exchange to 4.25% solution and maintain all other exchanges at 2.5% solution q.6 hours. I spoke with Dr. Washington. He will evaluate her left arm AV fistula, and she will need a PermCath placed if the fistula is not ready for temporary hemodialysis, which patient will need during her rehab stay. CHRIS / TORI: [id number] /
--- NOTE | 2020-12-19 15:39 | PN ---
PROGRESS NOTE DATE OF SERVICE: 12/19/2020 REASON FOR FOLLOWUP: Enterobacter bacteremia secondary to PD catheter-associated peritonitis and C difficile colitis. INTERVAL HISTORY: The patient is afebrile. She is breathing comfortably. Somewhat feeling a bit better. No nausea, no vomiting. Diarrhea has resolved. PHYSICAL EXAMINATION: Blood pressure 137/72 with a pulse of 83, temperature 97.3. She is 90% on 6 L nasal cannula. GENERAL DESCRIPTION: General description is an elderly female lying in bed in no distress. RESPIRATORY SYSTEM: Unlabored breathing. Clear to auscultation anteriorly. HEART: S1, S2. Regular rate and rhythm. ABDOMEN: Soft. Mildly distended. No guarding or rigidity. LABS: Hemoglobin is 11.2, white count 27,000. BUN of 27, creatinine 2.25. DIAGNOSTIC IMPRESSION AND PLAN: 1. Patient with Enterobacter bacteremia, source likely PD catheter-associated peritonitis. Repeat blood culture has been negative. Peritoneal fluid culture repeat negative. She is on Rocephin; however, did have worsening of the white count, which is slightly concerning. Cultures will be repeated, antibiotic adjusted if needed. 2. Patient with Clostridium difficile colitis, clinically responding to vancomycin, as the diarrhea has improved. Continue oral vancomycin. MMODL / IJN: [id number] / [facility]
--- NOTE | 2020-12-19 16:03 | P.PN ---
Subjective Progress Note Date: 12/19/20 This is a pleasant 85-year-old female who originally presented to the emergency department at [place] for increased shortness of breath with possible infection and not feeling well with increased weakness over the last few days. Patient was transferred here to [facility] for further evaluation and nephrology evaluation. She reports to seeing Dr. Elizondo nephrology out of [place] as she lives in [place] and has been doing nightly peritoneal dialysis by herself. Patient states her primary care provider is Dr. Ray. Patient states she has not had much of an appetite and did have an episode of nausea with vomiting reported episodes of diarrhea. She states he has difficulty in eating and chewing. Patient states her last admission to hospital she was discharged on home oxygen at 2 L and patient presented here with continued shortness of breath and low oxygen saturations and currently on 4 L oxygen via nasal cannula. She was initiated on IV Rocephin and vancomycin and will consult infectious disease a possibility of peritonitis and/or possible urinary tract infection. Nephrology also consulted. Patient denies any chest pain or palpitations. Patient denies any recent sick contacts or fevers and states that her peritoneal fluid has been clear and no drainage or discharge noted around the site on her abdomen. Patient states she has also been having low blood pr essures and adjustments are being made in the outpatient setting by primary care provider. 12/12/2020 Patient is seen in follow-up this morning extremely lethargic and overall not feeling well with intermittent periods of nausea. C. diff testing was positive and patient was started on oral Vanco and infectious disease following closely. She did have a femoral catheter for dialysis which is being sent for microbiology and being removed. Patient continues with peritoneal dialysis with nephrology following closely. Patient also receiving peritoneal IV antibiotics in the form of cefepime and vancomycin. Patient's blood pressures have been running on the lower side and patient has midodrine as needed and will change to scheduled and monitor blood pressure closely. 12/13/2020 Patient is seen and evaluated in follow-up this morning continues to have abdominal discomfort and is also having some left hip pain and will order hip x- ray. Repeat chest x-ray ordered and pending. Will order CT abdomen and pelvis as well. She continues with peritoneal dialysis and most recently had right femoral line discontinued and sent for analysis and awaiting finalized cultures. Urine culture preliminary showing gram-negative bacilli along with the species and dialysate Gram stain preliminary also showing gram-negative with infectious disease following closely and patient is continued on IV antibiotics in the form of ceftriaxone along with peritoneal exchanges including cefepime per infectious disease recommendations. Patient continues with loose stools and being treated for C. diff with oral vancomycin. Blood pressure is improved today and patient is receiving midodrine 5 mg 3 times a day. Nephrology is following closely and morning labs continue to be pending. Patient is afebrile and continues to have shortness of breath and maintained on 3 L via nasal cannula. Encouraged oral intake and patient continues to have intermittent nausea and decreased oral intake with no real appetite. 12/16/2020 Patient is seen in follow up this morning and quite tearful on exam. Patient st ates she lost her son this weekend and would like to make the . Patient continues on IV antibiotics in the form of Ceftriaxone with infectious disease following closely. Patient also being followed closely by nephrology. Patient continues to be weak and will have PT/OT evaluate the patient as she is planning on ECF. Patient will also need hemodialysis if going to ecf. Patient continues to have left hip pain. Patient also continues on oral vanco for c-diff. Dialysate cultures showing enterobacter cloacae with urine culture showing ecoli and e. cloacae as well. Repeat peritoneal fluid culture pending. 12/17/2020 Patient is seen and evaluated this morning continues to have left leg pain and will order femur x-ray as hip x-ray was negative. Patient is continued on peritoneal dialysis with nephrology following closely and will discuss with possible temporary cath placement for hemodialysis as patient will be going to ECF and unable to accommodate CAPD exchanges. Urine culture finalized showing Ghazala glabrata along with E. coli and blood cultures remain negative. Initial Gram stain of dialysate finalized showing Enterobacter Cloacae infectious disease following closely. Repeat body fluid cultures have been negative and catheter tip was negative as well. Sodium continues to be low at 124 with a potassium of 4.1, BUNs 28 current creatinine is 3.41. White blood count is 11.0 and hemoglobin is stable at 13.0. Patient continues on IV ceftriaxone along with oral vancomycin for C. diff. Nephrology following closely and patient is maintained on sodium chloride tablets and continued peritoneal dialysis exchanges. 12/18/2020 Patient is seen in follow up this morning and has been having nausea with vomiting and increased abdominal pain. Patient is maintained on IV antibiotics along with oral vanco for cdiff. Patient WBC elevated to 21 today and intake has been poor. Sodium remains low and worsened today to 124. Nephrology and infectious disease following. Femur xray was negative. Discussed with nephrology about placing temporary dialysis catheter as she will be going to [facility] once stabilized and consult to vascular surgery Dr. [place] consulted. Patient does h ave an AV fistula in the left arm from previous. Cell count of PD fluid sent for analysis and pending. 12/19/2020 Patient is seen and evaluated in follow-up this morning stating her abdominal discomfort has somewhat subsided and patient denies any further vomiting. Patient continues to be nauseated at times and continues with pain of the left hip. Nephrology along with vascular surgery and infectious disease following closely and patient is continued on IV antibiotics. Patient to continue 2 more days of oral Vanco to complete the ten-day course for C. diff. Patient white blood count elevated at 27 with hemoglobin 11.8, sodium is 127 with a potassium of 3.6 and current creatinine is 3.25. Patient is continued on peritoneal dialysis and does have a forearm AV fistula of the left side noted and vascular surgery along with nephrology to discuss using this for hemodialysis or possibly placing a temporary dialysis catheter for hemodialysis while in the outpatient setting at [facility]. Patient having some left arm swelling and ordered a venous Doppler for further assessment and to rule out DVT. Patient clinically appears slightly volume overloaded with some mild lower extremity edema and increasing shortness of breath. Chest x-ray was also ordered today. Patient remains afebrile. Cell count of peritoneal fluid significantly improved. Review of systems: Constitutional: reports of fatigue, no reports of fever or chills Cardiovascular: No reports of chest pain or palpitations Respiratory: reports of shortness of breath GI: No reports of nausea and vomiting today and abdominal pain improved : No reports of dysuria or retention Neurovascular: reports generalized weakness All medications have been reviewed Active Medications Acetaminophen (Acetaminophen Tab 325 Mg Tab) 650 mg PO Q6HR PRN PRN Reason: Mild Pain or Fever > 100.5 Last Admin: 12/16/20 10:31 Dose: 650 mg Documented by: Hydrocodone Bitart/Acetaminophen (Hydrocodone/Apap 5-325mg 1 Each Tab) 0.5 each PO Q6HR PRN PRN Reason: Pain Hydrocodone Bitart/Acetaminophen (Hydrocodone/Apap 5-325mg 1 Each Tab) 1 each PO Q6HR PRN PRN Reason: Moderate to Severe Pain Last Admin: 12/19/20 15:22 Dose: 1 each Documented by: Atorvastatin Calcium (Atorvastatin 20 Mg Tab) 20 mg PO DAILY [facility] Last Admin: 12/19/20 09:10 Dose: 20 mg Documented by: Fluconazole (Fluconazole 100 Mg Tab) 100 mg PO DAILY [facility] Last Admin: 12/19/20 09:11 Dose: 100 mg Documented by: Gabapentin (Gabapentin 300 Mg Cap) 300 mg PO BID [facility] Last Admin: 12/19/20 09:10 Dose: 300 mg Documented by: Ceftriaxone Sodium 2 gm/ (Sodium Chloride) 50 mls @ 100 mls/hr IVPB Q24H [facility] Last Admin: 12/19/20 09:11 Dose: 100 mls/hr Documented by: Peritoneal Dialysis Solution (Delflex With 2.5% Dextrose (2,000 Ml)) 50 g in 2,000 mls @ 0 mls/hr INTRAPERIT Q6HR [facility]; Protocol Levothyroxine Sodium (Levothyroxine 75 Mcg Tab) 75 mcg PO DAILY@0630 [facility] Last Admin: 12/19/20 06:16 Dose: 75 mcg Documented by: Lidocaine (Lidocaine 5% Patch) 1 patch TOPICAL DAILY [facility]; Protocol Last Admin: 12/19/20 11:07 Dose: 1 patch Documented by: Meclizine HCl (Meclizine 12.5 Mg Tab) 12.5 mg PO DAILY PRN PRN Reason: DIZZINESS Midodrine (Midodrine 5 Mg Tab) 5 mg PO TID [facility] Last Admin: 12/19/20 09:10 Dose: 5 mg Documented by: Miscellaneous Information (Potassium Replacement Protocol 1 Each Misc) 1 each MISCELLANE DAILY PRN; Protocol PRN Reason: Per Protocol Miscellaneous Information (Magnesium Replacement Protocol 1 Each Misc) 1 each MISCELLANE DAILY PRN; Protocol PRN Reason: Per Protocol Naloxone HCl (Naloxone 0.4 Mg/Ml 1 Ml Vial) 0.2 mg IV Q2M PRN PRN Reason: Opioid Reversal Ondansetron HCl (Ondansetron 4 Mg/2 Ml Vial) 4 mg IVP Q8HR PRN PRN Reason: Nausea And Vomiting Last Admin: 09/22/21 19:45 Dose: 4 mg Documented by: Pantoprazole Sodium (Pantoprazole 40 Mg Tablet) 40 mg PO AC-BRKFST [facility] Last Admin: 12/19/20 09:11 Dose: 40 mg Documented by: Sevelamer Carbonate (Sevelamer 800 Mg Tab) 1,600 mg PO Q8HR [facility] Last Admin: 12/19/20 09:11 Dose: 1,600 mg Documented by: Sodium Chloride (Sodium Chloride Tab 1 Gm Tab) 1 gm PO TID [facility] Last Admin: 12/19/20 09:10 Dose: 1 gm Documented by: Vancomycin HCl (Vancomycin 125 Mg Capsule) 125 mg PO QID [facility] Last Admin: 12/19/20 12:56 Dose: 125 mg Documented by: Physical exam: Gen: This is a pleasant 85-year-old female awake, alert and oriented 3 thin built. Ill appearing HEENT: Head is atraumatic, normocephalic. Pupils equal, round. Sclerae is anicteric. NECK: Supple. No JVD. No lymphadenopathy. No thyromegaly. LUNGS: Diminished breath sounds bilaterally with some scattered rhonchi noted. HEART: S1, S2 are muffled ABDOMEN: Soft. Bowel sounds are present. No masses. Nontender on palpation. Peritoneal dialysis catheter intact with no surrounding redness or drainage noted EXTREMITIES: No pedal edema. No calf tenderness. Left femur pain continues and radiating down, mild bilateral lower extremity edema noted 1+ NEUROLOGICAL: Patient is awake, alert and oriented x3. Diffusely weak. Assessment and plan: abdominal pain with nausea and vomiting possible sepsis, present on admission with enterobacter cloacae Enterobacter cloacae bacteremia secondary to peritoneal dialysis catheter associated peritonitis Clostridium difficile Left hip and left femur pain Ghazala glabrata and ecoli from with urine culture acute urinary tract infection, present on admission Shortness of breath with COPD acute exacerbation Hyponatremia secondary to renal failure Hypomagnesemia possibly secondary to diarrhea and poor oral intake change in mental status, acute metabolic encephalopathy, multifactorial Chronic renal failure with End-stage renal disease on peritoneal dialysis Dizziness Gait dysfunction History of vertigo Hypertension History of Rheumatoid arthritis Hypothyroidism History of back surgery, DJD History of Anxiety Full code Plan: Recommend to continue with current medications, management, and symptomatic treatment. Patient is continued on IV ceftriaxone with oral vanco. Will need 2 more days of oral Vanco to complete the ten-day course for C. diff. Will discuss with infectious disease along with nephrology about discharge planning and possible abx on discharge along with temporary hemodialysis and port placement if patient will be going to ECF. Patient has a pre-existing AV fistula in the left arm and will need to assess for possible hemodialysis. Vascular surgery following. Possibility of PD cath removal if cell count is elevated. Cell count had significantly improved and nephrology planning on leaving the PD catheter with the possibility of resuming peritoneal dialysis once discharged from ECF. Nephrology following closely. Repeat labs in the am. PT/OT to reevaluate the patient. Case management and social work following. Encouraged increased activity as tolerated. Encouraged oral intake. repeat dialysate cultures thus far have been negative and blood cultures remain negative as well. Due to multiple complex medical issues, prognosis is guarded. Will repeat am labs. Objective - Vital Signs Vital signs: Vital Signs Temp 97.5 F L 12/19/20 04:50 Pulse 104 H 12/19/20 04:50 Resp 22 12/19/20 04:50 BP 116/78 12/19/20 04:50 Pulse Ox 99 12/19/20 04:50 Intake & Output 12/18/20 12/19/20 12/19/20 18:59 06:59 18:59 Intake Total 2110 100 Balance 2110 100 Weight 57.5 kg Intake: Intake, IV Titration 250 Amount Magnesium Sulfate-D5w Pmx 200 1 gm In Dextrose/Water 1 100ml.bag @ 100 mls/hr IVPB Q1H [facility] Rx#: [id number] cefTRIAXone 2 gm In 50 Sodium Chloride 0.9% 50 ml @ 100 mls/hr IVPB Q24H [facility] Rx#:[id number] Oral 1860 100 Other: Voiding Method Indwelling Catheter # Voids 0 # Bowel Movements 1 - Labs CBC & Chem 7: 12/19/20 06:14 12/19/20 06:14 Labs: Abnormal Lab Results - Last 24 Hours (Table) 12/19/20 12/19/20 Range/Units 06:14 06:14 WBC 27.0 H (3.8-10.6) k/uL RDW 16.3 H (11.5-15.5) % Plt Count 143 L (150-450) k/uL Neutrophils # 24.5 H (1.3-7.7) k/uL Lymphocytes # 0.6 L (1.0-4.8) k/uL Monocytes # 1.6 H (0-1.0) k/uL Sodium 127 L (137-145) mmol/L Chloride 94 L (98-107) mmol/L BUN 27 H (7-17) mg/dL Creatinine 3.25 H (0.52-1.04) mg/dL Glucose 69 L (74-99) mg/dL Calcium 7.7 L (8.4-10.2) mg/dL Microbiology - Last 24 Hours (Table) 12/15/20 16:05 Gram Stain - Preliminary Peritoneal Fluid Body Fluid Culture - Preliminary 12/12/20 09:04 Blood Culture - Final Blood No Growth after 144 hours 12/12/20 09:30 Blood Culture - Final Blood No Growth after 144 hours 12/12/20 04:15 Blood Culture - Final Blood No Growth after 144 hours
[2020-12-19 16:23] LABS: Hepatitis A Antibody IgM Non-Reactive (Non-Reactive); Hepatitis B Core IgM Non-Reactive (Non-Reactive); Hepatitis B Surface Antigen Non-Reactive (Non-Reactive); Hepatitis C IgG Antibody Non-Reactive (Non-Reactive)
[2020-12-19 16:42] LABS: Appearance,Urine Cloudy (Clear); Bacteria,Urine Rare /hpf; Bilirubin,Urine Negative (Negative); Blood,Urine Small (Negative); Budding Yeast,Urine Many /hpf; Color,Urine Yellow; Glucose,Urine (UA) Negative (Negative); Ketones,Urine 1+ (Negative); Leukocyte Esterase,Urine Small (Negative); Nitrite,Urine Negative (Negative); PH, Urine 5.5 (5.0-8.0); Protein,Urine 3+ (Negative); RBC,Urine 3 /hpf (0-5); Specific Gravity,Urine 1.022 (1.001-1.035); Squamous Epithelial Cell,Urine <1 /hpf (0-4); Urobilinogen,Urine <2.0 mg/dL (<2.0); WBC,Urine 25 /hpf (0-5)
[2020-12-19] MEDS: DIALYSIS (PERIT 2.5%) 2,000 ML 50 G/2,000 ML BAG INTRAPERIT SCH ×2 (17:33→23:12)
[2020-12-19] MEDS ORDERED: SODIUM CHLORIDE 0.9% 500 ML 250 ML IV ONE (19:39)
[2020-12-20 01:36] LABS: Hepatitis B Surface AB- Quant <3.5 mIU/mL; Hepatitis B Surface Antibody Non-Reactive (Non-Reactive)
[2020-12-20] MEDS: DIALYSIS (PERIT 2.5%) 2,000 ML 50 G/2,000 ML BAG INTRAPERIT SCH ×3 (05:09→19:34)
[2020-12-20] MEDS: LEVOTHYROXINE 75 MCG TAB PO SCH (05:12)
[2020-12-20] MEDS: GABAPENTIN 300 MG CAP PO SCH ×2 (08:21→21:37)
[2020-12-20] MEDS: PANTOPRAZOLE 40 MG TABLET PO SCH (08:21)
[2020-12-20] MEDS: ATORVASTATIN 20 MG TAB PO SCH (08:21)
[2020-12-20] MEDS: FLUCONAZOLE 100 MG TAB PO SCH (08:22)
[2020-12-20] MEDS: SODIUM CHLORIDE TAB 1 GM TAB PO SCH ×2 (08:22→17:32)
[2020-12-20] MEDS: MIDODRINE 5 MG TAB PO SCH ×2 (08:22→17:32)
[2020-12-20] MEDS: VANCOMYCIN 125 MG CAPSULE PO SCH ×4 (08:22→21:39)
[2020-12-20] MEDS: SEVELAMER 800 MG TAB PO SCH ×2 (08:22→17:32)
[2020-12-20] MEDS: LIDOCAINE 5% PATCH TOPICAL SCH (08:23)
[2020-12-20] MEDS: ONDANSETRON 4 MG/2 ML VIAL IVP PRN (09:40)
[2020-12-20 10:04] LABS: African American GFR (CKD) 15 (>60 ml/min/1.73 sqM); Anion Gap 6 mmol/L; Blood Urea Nitrogen 24 mg/dL (7-17); Calcium 7.6 mg/dL (8.4-10.2); Carbon Dioxide 28 mmol/L (22-30); Chloride 96 mmol/L (98-107); Glucose 93 mg/dL (74-99); Non-African American GFR(CKD) 13 (>60 ml/min/1.73 sqM); Potassium 3.5 mmol/L (3.5-5.1); Sodium 130 mmol/L (137-145)
[2020-12-20 10:11] LABS: Anisocytosis Slight; Basophils % (A) 0 %; Eosinophils # (A) 0.3 k/uL (0-0.7); Eosinophils % (A) 2 %; HCT 36.8 % (34.0-46.0); HGB 12.2 gm/dL (11.4-16.0); Lymphocytes # (A) 0.8 k/uL (1.0-4.8); Lymphocytes % (A) 4 %; MCH 31.4 pg (25.0-35.0); MCHC 33.2 g/dL (31.0-37.0); MCV 94.8 fL (80.0-100.0); Mean Platelet Volume 13.8; Monocytes # (A) 1.6 k/uL (0-1.0); Monocytes % (A) 8 %; Neutrophils # (A) 17.5 k/uL (1.3-7.7); Neutrophils % (A) 86 %; Platelet Count 142 k/uL (150-450); Poikilocytosis Slight; RBC 3.89 m/uL (3.80-5.40); RDW 16.1 % (11.5-15.5); WBC 20.2 k/uL (3.8-10.6)
[2020-12-20 10:53] LABS: Crenated RBC Present
[2020-12-20] MEDS ORDERED: DIALYSIS (PERIT 4.25%) 2000 ML 85 G/2,000 ML BAG INTRAPERIT ONE (12:00)
--- NOTE | 2020-12-20 12:06 | CONS ---
CONSULTATION HISTORY: This is an 85-year-old pleasant female. She has history of end-stage renal disease. Patient had is Kvng fistula to the left wrist in the past. The patient has been admitted for possible urinary tract infection. The patient is presently on peritoneal dialysis. I was consulted for evaluation of Kvng fistula left arm. MEDICAL HISTORY: History of hypertension, thyroid disorder, chronic renal failure. SURGICAL HISTORY: Patient had a left knee replacement, right inguinal hernia and she had a Kvng fistula placed in the past in the left wrist. EXAMINATION: The patient is seen in her room. Vital signs are stable. Neck is supple. Breath sounds decreased bilateral. Abdomen soft. Femorals are 1+. The patient has a thrill present in the Kvng fistula on the left forearm. The patient had an ultrasound done, which was reviewed. At this point the fistula is patent. Attempt can be made for small needle. I will discuss with Nephrology. MMODL / IJN: [id number] /
[2020-12-20] MEDS: HYDROcodone/APAP 5-325MG 1 EACH TAB PO PRN (12:09)
--- NOTE | 2020-12-20 13:54 | PN ---
PROGRESS NOTE DATE OF SERVICE: 12/20/2020 REASON FOR FOLLOWUP: 1. Enterobacter bacteremia secondary to peritonitis. 2. C difficile colitis. 3. UTI. INTERVAL HISTORY: The patient is afebrile. The patient is breathing comfortably. Denies having any chest pain, shortness of breath or cough. Still has some abdominal discomfort, but no worsening. No vomiting has been noticed. PHYSICAL EXAMINATION: Blood pressure 103/66, pulse of 86, temperature 97.6. She is 96% on 5 L nasal cannula. GENERAL DESCRIPTION: General description is an elderly female lying in bed in no distress. RESPIRATORY SYSTEM: Unlabored breathing. Clear to auscultation anteriorly. HEART: S1, S2. Regular rate and rhythm. ABDOMEN: Soft. Mildly distended. No guarding or rigidity. LABS: Hemoglobin is 12.2, white count 20.2, creatinine 3.3. Repeat urine is still positive. Did have yeast. DIAGNOSTIC IMPRESSION AND PLAN: 1. Patient with Enterobacter bacteremia secondary to peritonitis. Repeat blood culture has been negative so far. Patient is covered with Rocephin. That will be continued. 2. Patient with Clostridium difficile colitis; clinically responded to vancomycin; to finish a 10-day course of therapy. 3. Elevated white count, more likely due to urinary tract infection with urine still significantly positive showing yeast with Ghazala glabrata on the last culture. Will switch her over to voriconazole and see response and monitor clinical course closely. MMODL / IJN: [id number] / MACEY
[2020-12-20] MEDS: VORICONAZOLE 200 MG TAB PO SCH ×2 (14:13→21:38)
--- NOTE | 2020-12-20 15:21 | P.PN ---
Subjective Progress Note Date: 12/20/20 This is a pleasant 85-year-old female who originally presented to the emergency department at [place] for increased shortness of breath with possible infection and not feeling well with increased weakness over the last few days. Patient was transferred here to [facility] for further evaluation and nephrology evaluation. She reports to seeing Dr. Elizondo nephrology out of [place] as she lives in [place] and has been doing nightly peritoneal dialysis by herself. Patient states her primary care provider is Dr. Ray. Patient states she has not had much of an appetite and did have an episode of nausea with vomiting reported episodes of diarrhea. She states he has difficulty in eating and chewing. Patient states her last admission to hospital she was discharged on home oxygen at 2 L and patient presented here with continued shortness of breath and low oxygen saturations and currently on 4 L oxygen via nasal cannula. She was initiated on IV Rocephin and vancomycin and will consult infectious disease a possibility of peritonitis and/or possible urinary tract infection. Nephrology also consulted. Patient denies any chest pain or palpitations. Patient denies any recent sick contacts or fevers and states that her peritoneal fluid has been clear and no drainage or discharge noted around the site on her abdomen. Patient states she has also been having low blood pr essures and adjustments are being made in the outpatient setting by primary care provider. 12/12/2020 Patient is seen in follow-up this morning extremely lethargic and overall not feeling well with intermittent periods of nausea. C. diff testing was positive and patient was started on oral Vanco and infectious disease following closely. She did have a femoral catheter for dialysis which is being sent for microbiology and being removed. Patient continues with peritoneal dialysis with nephrology following closely. Patient also receiving peritoneal IV antibiotics in the form of cefepime and vancomycin. Patient's blood pressures have been running on the lower side and patient has midodrine as needed and will change to scheduled and monitor blood pressure closely. 12/13/2020 Patient is seen and evaluated in follow-up this morning continues to have abdominal discomfort and is also having some left hip pain and will order hip x- ray. Repeat chest x-ray ordered and pending. Will order CT abdomen and pelvis as well. She continues with peritoneal dialysis and most recently had right femoral line discontinued and sent for analysis and awaiting finalized cultures. Urine culture preliminary showing gram-negative bacilli along with the species and dialysate Gram stain preliminary also showing gram-negative with infectious disease following closely and patient is continued on IV antibiotics in the form of ceftriaxone along with peritoneal exchanges including cefepime per infectious disease recommendations. Patient continues with loose stools and being treated for C. diff with oral vancomycin. Blood pressure is improved today and patient is receiving midodrine 5 mg 3 times a day. Nephrology is following closely and morning labs continue to be pending. Patient is afebrile and continues to have shortness of breath and maintained on 3 L via nasal cannula. Encouraged oral intake and patient continues to have intermittent nausea and decreased oral intake with no real appetite. 12/16/2020 Patient is seen in follow up this morning and quite tearful on exam. Patient st ates she lost her son this weekend and would like to make the . Patient continues on IV antibiotics in the form of Ceftriaxone with infectious disease following closely. Patient also being followed closely by nephrology. Patient continues to be weak and will have PT/OT evaluate the patient as she is planning on ECF. Patient will also need hemodialysis if going to ecf. Patient continues to have left hip pain. Patient also continues on oral vanco for c-diff. Dialysate cultures showing enterobacter cloacae with urine culture showing ecoli and e. cloacae as well. Repeat peritoneal fluid culture pending. 12/17/2020 Patient is seen and evaluated this morning continues to have left leg pain and will order femur x-ray as hip x-ray was negative. Patient is continued on peritoneal dialysis with nephrology following closely and will discuss with possible temporary cath placement for hemodialysis as patient will be going to ECF and unable to accommodate CAPD exchanges. Urine culture finalized showing Ghazala glabrata along with E. coli and blood cultures remain negative. Initial Gram stain of dialysate finalized showing Enterobacter Cloacae infectious disease following closely. Repeat body fluid cultures have been negative and catheter tip was negative as well. Sodium continues to be low at 124 with a potassium of 4.1, BUNs 28 current creatinine is 3.41. White blood count is 11.0 and hemoglobin is stable at 13.0. Patient continues on IV ceftriaxone along with oral vancomycin for C. diff. Nephrology following closely and patient is maintained on sodium chloride tablets and continued peritoneal dialysis exchanges. 12/18/2020 Patient is seen in follow up this morning and has been having nausea with vomiting and increased abdominal pain. Patient is maintained on IV antibiotics along with oral vanco for cdiff. Patient WBC elevated to 21 today and intake has been poor. Sodium remains low and worsened today to 124. Nephrology and infectious disease following. Femur xray was negative. Discussed with nephrology about placing temporary dialysis catheter as she will be going to [facility] once stabilized and consult to vascular surgery Dr. [place] consulted. Patient does h ave an AV fistula in the left arm from previous. Cell count of PD fluid sent for analysis and pending. 12/19/2020 Patient is seen and evaluated in follow-up this morning stating her abdominal discomfort has somewhat subsided and patient denies any further vomiting. Patient continues to be nauseated at times and continues with pain of the left hip. Nephrology along with vascular surgery and infectious disease following closely and patient is continued on IV antibiotics. Patient to continue 2 more days of oral Vanco to complete the ten-day course for C. diff. Patient white blood count elevated at 27 with hemoglobin 11.8, sodium is 127 with a potassium of 3.6 and current creatinine is 3.25. Patient is continued on peritoneal dialysis and does have a forearm AV fistula of the left side noted and vascular surgery along with nephrology to discuss using this for hemodialysis or possibly placing a temporary dialysis catheter for hemodialysis while in the outpatient setting at [facility]. Patient having some left arm swelling and ordered a venous Doppler for further assessment and to rule out DVT. Patient clinically appears slightly volume overloaded with some mild lower extremity edema and increasing shortness of breath. Chest x-ray was also ordered today. Patient remains afebrile. Cell count of peritoneal fluid significantly improved. 12/20/2020 Patient is seen in follow-up this morning having some extreme abdominal discomfort associated with nausea and vomiting and this was noted to be after breakfast. Patient states that her left hip pain has subsided. Left upper extremity continues to be edematous and swollen and Doppler was negative that was done yesterday for DVT. Discussion is being had with nephrology and vascular surgery about placement of a permacath for hemodialysis and possibility of using her left forearm AV fistula. Patient continues on peritoneal dialysis and is maintained on IV antibiotics with infectious disease following closely. Repeat urinalysis continues to be positive for urinary tract infection and awaiting repeat cultures to finalized. White blood count continues to be elevated at 20.2 and hemoglobin is stable at 12.2. Sodium is improved at 130 and potassium is 3.5 current creatinine is 3.03. Patient continues on PD exchanges every 6 hours and nephrology is following closely. Hepatitis panel was negative. Patient continues to have hypotension and will increase midodrine. Patient is extremely weak and states she was unable to work with physical therapy today getting up as her legs were extremely unsteady and unable to stand. 1+ pitting edema noted to bilateral lower extremities. Review of systems: Constitutional: reports of fatigue, no reports of fever or chills Cardiovascular: No reports of chest pain or palpitations Respiratory: reports of shortness of breath GI: Reports nausea and vomiting today and abdominal : No reports of dysuria or retention Neurovascular: reports generalized weakness , reports left hip pain improved All medications have been reviewed Active Medications Acetaminophen (Acetaminophen Tab 325 Mg Tab) 650 mg PO Q6HR PRN PRN Reason: Mild Pain or Fever > 100.5 Last Admin: 12/16/20 10:31 Dose: 650 mg Documented by: Hydrocodone Bitart/Acetaminophen (Hydrocodone/Apap 5-325mg 1 Each Tab) 0.5 each PO Q6HR PRN PRN Reason: Pain Hydrocodone Bitart/Acetaminophen (Hydrocodone/Apap 5-325mg 1 Each Tab) 1 each PO Q6HR PRN PRN Reason: Moderate to Severe Pain Last Admin: 12/20/20 12:09 Dose: 1 each Documented by: Atorvastatin Calcium (Atorvastatin 20 Mg Tab) 20 mg PO DAILY [facility] Last Admin: 12/20/20 08:21 Dose: 20 mg Documented by: Gabapentin (Gabapentin 300 Mg Cap) 300 mg PO BID [facility] Last Admin: 12/20/20 08:21 Dose: 300 mg Documented by: Ceftriaxone Sodium 2 gm/ (Sodium Chloride) 50 mls @ 100 mls/hr IVPB Q24H [facility] Last Admin: 12/20/20 08:33 Dose: 100 mls/hr Documented by: Peritoneal Dialysis Solution (Delflex With 2.5% Dextrose (2,000 Ml)) 50 g in 2,000 mls @ 0 mls/hr INTRAPERIT Q6HR [facility]; Protocol Last Admin: 12/20/20 11:39 Dose: Not Given Documented by: Levothyroxine Sodium (Levothyroxine 75 Mcg Tab) 75 mcg PO DAILY@0630 [facility] Last Admin: 12/20/20 05:12 Dose: 75 mcg Documented by: Lidocaine (Lidocaine 5% Patch) 1 patch TOPICAL DAILY [facility]; Protocol Last Admin: 12/20/20 08:23 Dose: 1 patch Documented by: Meclizine HCl (Meclizine 12.5 Mg Tab) 12.5 mg PO DAILY PRN PRN Reason: DIZZINESS Midodrine (Midodrine 5 Mg Tab) 10 mg PO AC-TID [facility] Miscellaneous Information (Potassium Replacement Protocol 1 Each Misc) 1 each MISCELLANE DAILY PRN; Protocol PRN Reason: Per Protocol Miscellaneous Information (Magnesium Replacement Protocol 1 Each Misc) 1 each MISCELLANE DAILY PRN; Protocol PRN Reason: Per Protocol Naloxone HCl (Naloxone 0.4 Mg/Ml 1 Ml Vial) 0.2 mg IV Q2M PRN PRN Reason: Opioid Reversal Ondansetron HCl (Ondansetron 4 Mg/2 Ml Vial) 4 mg IVP Q8HR PRN PRN Reason: Nausea And Vomiting Last Admin: 12/20/20 09:40 Dose: 4 mg Documented by: Pantoprazole Sodium (Pantoprazole 40 Mg Tablet) 40 mg PO AC-BRKFST [facility] Last Admin: 12/20/20 08:21 Dose: 40 mg Documented by: Sevelamer Carbonate (Sevelamer 800 Mg Tab) 1,600 mg PO Q8HR [facility] Last Admin: 12/20/20 08:22 Dose: 1,600 mg Documented by: Sodium Chloride (Sodium Chloride Tab 1 Gm Tab) 1 gm PO TID [facility] Last Admin: 12/20/20 08:22 Dose: 1 gm Documented by: Vancomycin HCl (Vancomycin 125 Mg Capsule) 125 mg PO QID [facility] Last Admin: 12/20/20 12:46 Dose: 125 mg Documented by: Voriconazole (Voriconazole 200 Mg Tab) 200 mg PO Q12HR [facility] Last Admin: 12/20/20 14:13 Dose: 200 mg Documented by: Physical exam: Gen: This is a pleasant 85-year-old female awake, alert and oriented 2 thin built. Ill appearing, extremely lethargic today. Temp is 97.6F pulses 86, respirations are 16, blood pressure 103/66, oxygen saturation 96% on 5 L. HEENT: Head is atraumatic, normocephalic. Pupils equal, round. Sclerae is anicteric. NECK: Supple. No JVD. No lymphadenopathy. No thyromegaly. LUNGS: Diminished breath sounds bilaterally with some scattered rhonchi noted. HEART: S1, S2 are muffled ABDOMEN: Soft. Bowel sounds are present. No masses. Nontender on palpation. Peritoneal dialysis catheter intact with no surrounding redness or drainage noted EXTREMITIES: No pedal edema. No calf tenderness. Left femur pain continues and radiating down, mild bilateral lower extremity edema noted 1+ NEUROLOGICAL: Patient is awake, alert and oriented x3. Diffusely weak. Assessment and plan: abdominal pain with nausea and vomiting possible sepsis, present on admission with enterobacter cloacae Enterobacter cloacae bacteremia secondary to peritoneal dialysis catheter associated peritonitis Hypotension Clostridium difficile Left hip and left femur pain Ghazala glabrata and ecoli from with urine culture acute urinary tract infect ion, present on admission Shortness of breath with COPD acute exacerbation Hyponatremia secondary to renal failure Hypomagnesemia possibly secondary to diarrhea and poor oral intake change in mental status, acute metabolic encephalopathy, multifactorial Chronic renal failure with End-stage renal disease on peritoneal dialysis Dizziness Gait dysfunction History of vertigo Hypertension History of Rheumatoid arthritis Hypothyroidism History of back surgery, DJD History of Anxiety Full code Plan: Recommend to continue with current medications, management, and symptomatic treatment. Patient is continued on IV ceftriaxone with oral vanco. Will need 1 more day of oral Vanco to complete the ten-day course for C. diff. infectious disease and Nephrology following closely. Repeat labs in the am. PT/OT to reevaluate the patient. Patient attempted to get up and work with physical therapy today and was extremely weak and unable to participate. Case management and social work following. Encouraged increased activity as tolerated. Encouraged oral intake. repeat dialysate cultures thus far have been negative and blood cultures remain negative as well. Awaiting for repeat urinalysis cultures to finalize. Granddaughter Shaneka, power of mounting machine operator discussing possible home with hospice and requesting a physician call. Attempted to contact her number at [phone] and was sent to [facility]. We'll continue to attempt to contact family. Due to multiple complex medical issues, prognosis is guarded. Will repeat am labs. Objective - Vital Signs Vital signs: Vital Signs Temp 97.6 F 12/20/20 05:00 Pulse 86 12/20/20 05:00 Resp 16 12/20/20 05:00 BP 103/66 12/20/20 05:00 Pulse Ox 96 12/20/20 05:00 Intake & Output 12/19/20 12/20/20 12/20/20 18:59 06:59 18:59 Output Total 80 Balance -80 Weight 57.5 kg Output: Urine 80 Other: Voiding Method Indwelling Catheter # Voids 0 - Labs CBC & Chem 7: 12/20/20 09:07 12/20/20 09:07 Labs: Abnormal Lab Results - Last 24 Hours (Table) 12/19/20 12/19/20 Range/Units 06:14 16:32 Procalcitonin 0.86 H (0.02-0.09) ng/mL Urine Appearance Cloudy H (Clear) Urine Protein 3+ H (Negative) Urine Ketones 1+ H (Negative) Urine Blood Small H (Negative) Ur Leukocyte Esterase Small H (Negative) Urine WBC 25 H (0-5) /hpf Urine Bacteria Rare H (None) /hpf Urine Yeast (Budding) Many H (None) /hpf Microbiology - Last 24 Hours (Table) 12/19/20 16:32 Urine Culture - Preliminary Urine,Voided 12/17/20 10:30 Gram Stain - Preliminary Peritoneal Fluid Body Fluid Culture - Preliminary 12/15/20 16:05 Gram Stain - Preliminary Peritoneal Fluid Body Fluid Culture - Preliminary
[2020-12-20] MEDS ORDERED: SODIUM CHLORIDE 0.9% 500 ML 500 ML IV ONE (19:25)
--- NOTE | 2020-12-20 20:19 | PN ---
PROGRESS NOTE Patient is being seen for followup for end-stage renal disease. The patient is maintained on peritoneal dialysis. She was admitted with PD peritonitis. Fluid culture grew Enterococcus cloacae. The patient also had bacteremia on an initial blood culture drawn at an outside hospital. She is maintained on antibiotics with improvement in the peritoneal fluid cell count, which is now down to 26 as of 12/18/2020. Patient's abdominal pain had improved significantly. She also has underlying C difficile colitis, for which she is maintained on oral vancomycin. Yesterday patient had an episode of vomiting, and this morning she states she does not feel like eating much. There is no worsening abdominal pain. There are plans to discharge to rehab, at which time patient will need temporary hemodialysis. She does have an AV fistula in the left forearm which can be used for hemodialysis. It was evaluated by Vascular Surgery, and we can start with 17-gauge needles. PHYSICAL EXAMINATION: On examination today, patient is lying in bed. Blood pressure remains on the lower side. This morning systolic blood pressure was 116 to 88 mmHg. Heart rate 92 per minute. She is afebrile. EXAMINATION OF THE HEART: S1 and S2. EXAMINATION OF LUNGS: Decreased breath sounds at the bases. ABDOMEN: Soft. No significant tenderness noted. LOWER EXTREMITIES: Examination of lower extremities shows trace edema bilaterally. NUT SORTER EXAM: Grossly intact. LABS: Labs show sodium 130, potassium 3.5, chloride 96, BUN 24, creatinine 3.0, hemoglobin 12.2 g/dL. ASSESSMENT: 1. End-stage renal disease, on peritoneal dialysis, currently maintained on 2.5% solution exchanges. Patient received a 4.25% solution exchange with UF of about 300 mL yesterday for mild volume overload. The rest of the exchanges with the 2.5% solution did not have significant ultrafiltration, but patient's volume status is improved. She does not have much urine output. I will continue with the current exchanges. 2. Mild hypervolemia, somewhat improved today. Patient is maintained on midodrine for low blood pressure. She had been hyponatremic, for which sodium chloride tabs were added. However, given the hypervolemia I will discontinue the sodium chloride and we will continue with the midodrine. I will add a 4.25% exchange today if there is no significant hypotension. 3. Clostridium difficile colitis, maintained on oral vancomycin. 4. PD peritonitis with fluid culture growing Enterobacter cloacae, status post intraperitoneal antibiotics. Currently on IV Rocephin. Fluid cell count was down to 26 from 3400. If patient remains symptomatic, we will send another PD fluid and if the count is rising, the peritoneal dialysis catheter will need to be discontinued. 5. Generalized debility. Patient will be going to rehab, at which time she will need temporary hemodialysis, and we can use the left arm AV fistula. 6. Hyponatremia, initially hypovolemic and started on sodium chloride tabs with improvement in serum sodium, but currently patient is hypervolemic, as she has not had good ultrafiltration with peritoneal dialysis with the 1.5% solutions. Continue with 2.5% exchanges for now and I will discontinue the sodium chloride tabs. MMODL / IJN: [id number] /
--- NOTE | 2020-12-20 22:20 | XR ---
EXAMINATION TYPE: XR chest 1V portable DATE OF EXAM: 12/20/2020 COMPARISON: Chest radiograph 12/19/2020 HISTORY: Possible CHF. TECHNIQUE: Single frontal view of the chest is obtained. FINDINGS: The cardiomediastinal silhouette and pulmonary vasculature are within normal limits. Blunting of the left costophrenic angle. Pneumothorax. Opacity over the right hemithorax. IMPRESSION: Opacity over the right hemithorax may relate to a loculated effusion versus skinfold. Sm all left lesion. Correlate with chest CT.
[2020-12-20 23:13] LABS: Appearance,BF Clear; Color,BF Colorless; Nucleated Cells, Body Fluid 16 /uL; RBC, Body Fluid 13 /uL
[2020-12-21] MEDS: DIALYSIS (PERIT 2.5%) 2,000 ML 50 G/2,000 ML BAG INTRAPERIT SCH ×4 (04:10→18:10)
[2020-12-21] MEDS: SEVELAMER 800 MG TAB PO SCH ×3 (04:11→16:37)
[2020-12-21] MEDS: LEVOTHYROXINE 75 MCG TAB PO SCH (06:16)
[2020-12-21] MEDS: VANCOMYCIN 125 MG CAPSULE PO SCH ×4 (07:38→21:22)
[2020-12-21] MEDS: MIDODRINE 5 MG TAB PO SCH ×3 (07:38→16:37)
[2020-12-21] MEDS: LIDOCAINE 5% PATCH TOPICAL SCH (07:39)
[2020-12-21] MEDS: VORICONAZOLE 200 MG TAB PO SCH ×2 (07:39→21:22)
[2020-12-21] MEDS: GABAPENTIN 300 MG CAP PO SCH ×2 (07:39→21:22)
[2020-12-21] MEDS: ATORVASTATIN 20 MG TAB PO SCH (07:39)
[2020-12-21] MEDS: PANTOPRAZOLE 40 MG TABLET PO SCH (07:39)
[2020-12-21] MEDS: ACETAMINOPHEN TAB 325 MG TAB PO PRN ×2 (11:35→18:35)
--- NOTE | 2020-12-21 12:51 | P.PN ---
Subjective Progress Note Date: 12/21/20 Principal diagnosis: This 85-year-old female on peritoneal dialysis who came in with peritonitis. She is being treated with antibiotics. She remains hypotensive sometimes going to the systolic of 60. Yesterday I held her peritoneal dialysis. I had recommended that she be moved and started on levo fed. That has not happened. This morning she remains weak and tired but awake and alert warm to touch. Blood pressure is 116/63 heart rate 90. She is afebrile. Has poor appetite. No nausea vomiting diarrhea no abdominal pain no fever Her PD cell count was 1280 is down to 626 on 12/18/2020, and down to 16 as of 12/20/2020 yesterday. Because of cessation of the PD there was some concern that she might going to CHF a chest x-ray shows right hemithorax opacity possibly loculated effusion versus skinfold small left lesion correlated with CT. She is on nasal cannula oxygen and comfort. Has minimal edema Objective - Vital Signs Vital signs: Vital Signs Temp 97.6 F 12/21/20 04:30 Pulse 90 12/21/20 09:36 Resp 20 12/21/20 04:30 BP 116/63 12/21/20 09:36 Pulse Ox 97 12/21/20 07:42 Intake & Output 12/20/20 12/21/20 12/21/20 18:59 06:59 18:59 Intake Total 150 Output Total 1 Balance -1 150 Weight 57 kg Intake: Oral 150 Output: Emesis 1 Other: Voiding Method Indwelling Catheter Diaper Diaper # Voids 0 On examination is awake alert seems to be oriented. Warm to touch. HEENT exam no JVP no facial asymmetry Lungs are clear to auscultation fairly good air entry bilaterally Heart sounds unremarkable for any murmur rub gallop Abdomen soft nontender PD exit site is clear Extreme exam was mild edema Neurologically awake and alert moves all extremities but profoundly weak - Labs CBC & Chem 7: 12/20/20 09:07 12/20/20 09:07 Labs: Microbiology - Last 24 Hours (Table) 12/20/20 21:00 Gram Stain - Preliminary Peritoneal Fluid Body Fluid Culture - Preliminary 12/17/20 10:30 Gram Stain - Final Peritoneal Fluid Body Fluid Culture - Final 12/15/20 16:05 Gram Stain - Final Peritoneal Fluid Body Fluid Culture - Final Assessment and Plan Assessment: Impression 1. ESRD on peritoneal dialysis with peritonitis, Enterobacter cloacae. PD cell count is back to normal on 12/18 and 12/20/2020. 2. Hypotension secondary to septic syndrome. 3. Profound weakness secondary to septic syndrome. 4. Anemia hemoglobin is about target at 12.2 Recommendation 1. Resume peritoneal dialysis with 0.5% 2000 mL 4 exchanges a day we'll keep a close watch on her 2. Obtain echocardiogram to rule out pericardial effusion and tamponade
[2020-12-21] MEDS ORDERED: SODIUM CHLORIDE 0.9% 500 ML 500 ML IV ONE (16:40)
--- NOTE | 2020-12-21 17:34 | XR ---
EXAMINATION TYPE: XR chest 1V portable DATE OF EXAM: 12/21/2020 COMPARISON: Yesterday HISTORY: Short of breath FINDINGS: There is mild pulmonary vascular congestion. There is blunting of the costophrenic angles bilaterally . Heart is borderline enlarged. IMPRESSION: No heart failure with pleural effusions. No change compared to yesterday.
--- NOTE | 2020-12-21 17:49 | PN ---
PROGRESS NOTE DATE OF SERVICE: 12/21/2020 This 85-year-old woman who was admitted with acute peritonitis is being closely monitored. The ascitic fluid seems to be clearing at this time. Patient had episodes of hypotension. White count is still elevated. Enterobacter cloacae was grown from the body fluid previously. Multiple consultants are following the patient closely. Dr. 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 The most recent chest x-ray, which was reviewed by me, showed opacity of the right hemithorax which was not visualized in the previous x-rays. Patient is being closely monitored at this time. Past medical history reviewed. REVIEW OF SYSTEMS: CARDIOVASCULAR SYSTEM: No angina. RESPIRATION: As mentioned earlier. GI: As mentioned earlier. : No dysuria. NERVOUS SYSTEM: No numbness, weakness. MUSCULOSKELETAL: Diffuse aches and pains, especially in the left hip area. PHYSICAL EXAMINATION: Patient alert and oriented x3. Pulse 83, blood pressure improved to 116/63, respirations 16, temperature normal, pulse ox 100% on 3 L. HEENT: Conjunctivae normal. NECK: No jugular venous distention. CARDIOVASCULAR: S1, S2 muffled. RESPIRATION: Breath sounds diminished at the bases. A few scattered rhonchi and crackles. ABDOMEN: Soft, nontender. LEGS: No edema. No swelling. NERVOUS SYSTEM: No focal deficit. LABS: WBC 20.2, sodium 130. Cultures noted. C difficile is positive. ASSESSMENT: 1. Acute peritonitis with abdominal pain with nausea and vomiting with possible sepsis, present on admission. 2. Acute Clostridium difficile colitis. 3. Enterobacter cloacae from the cultures. 4. Left hip and left femur pain. 5. Hypotension, possibly secondary to sepsis. 6. Ghazala glabrata and Escherichia coli from the urine culture; acute urinary tract infection, present on admission. 7. Shortness of breath with chronic obstructive pulmonary disease, acute exacerbation. 8. Hyponatremia secondary to renal failure. 9. Hypomagnesemia, possibly secondary to diarrhea and poor oral intake. 10.Change in mental status, acute metabolic encephalopathy, multifactorial. 11.Chronic renal failure and end-stage renal disease, on peritoneal dialysis. 12.Dizziness. 13.Gait dysfunction. 14.History of vertigo. 15.Hypertension. 16.History of rheumatoid arthritis. 17.Hypothyroidism. 18.History of back surgery, degenerative joint disease. 19.History of anxiety. 20.NO CODE, NO CPR, NO VENT. RECOMMENDATIONS AND DISCUSSION: I recommend to continue current medications, continue with symptomatic treatment. I would also recommend a random serum cortisol. Continue with . Continue with the rest of the medications. Repeat cultures are ordered. Otherwise, closely follow with Infectious Disease. Further recommendations to follow. MMODL / IJN: [id number] / MACEY
[2020-12-21] MEDS: FLUDROCORTISONE 0.1 MG TAB PO SCH ×2 (18:51→21:22)
[2020-12-21] MEDS ORDERED: INSULIN ASPART (NovoLOG) 100 UNIT/ML VIAL SQ SCH (19:15)
[2020-12-21] MEDS: HYDROcodone/APAP 5-325MG 1 EACH TAB PO PRN (19:39)
--- NOTE | 2020-12-21 20:32 | PN ---
PROGRESS NOTE DATE OF SERVICE: 12/21/2020 REASON FOR FOLLOW UP: 1. Enterobacter bacteremia 2. UTI. 3. C difficile colitis. INTERVAL HISTORY: The patient is afebrile. The patient is breathing comfortably. Denies chest pain, shortness of breath or cough. Still complaining of some abdominal pain No vomiting or diarrhea has been reported by the nursing staff. PHYSICAL EXAMINATION: Blood pressure is 92/56, pulse of 83, temperature 98. She is 100% on 3 L nasal cannula. General description is an elderly female lying in bed in no distress. Respiratory system: Unlabored breathing, clear to auscultation anteriorly. Heart S1, S2. Regular rate and rhythm. Abdomen soft. Nondistended. No guarding. No rigidity. LABS: Repeat peritoneal fluid white count down to 16. DIAGNOSTIC IMPRESSION/PLAN: 1. Patient with an Enterobacter bacteremia source is PD catheter associated peritonitis. Patient at this time is covered with Rocephin that will be continued. 2. Patient with urinary tract infection urine with Ghazala glabrata. Repeat urine is pending. Voriconazole has been added to continue. 3. C difficile colitis responding to the oral vancomycin to continue to finish a ten day course of therapy. Continue supportive care. MMODL / IJN: [id number] / MACEY
[2020-12-22] MEDS: DIALYSIS (PERIT 2.5%) 2,000 ML 50 G/2,000 ML BAG INTRAPERIT SCH ×4 (00:24→16:57)
[2020-12-22] MEDS: SEVELAMER 800 MG TAB PO SCH ×3 (00:25→15:13)
[2020-12-22] MEDS: HYDROcodone/APAP 5-325MG 1 EACH TAB PO PRN (03:05)
[2020-12-22] MEDS ORDERED: SODIUM CHLORIDE 0.9% 500 ML 500 ML IV ONE (04:08)
[2020-12-22] MEDS: LEVOTHYROXINE 75 MCG TAB PO SCH (05:57)
--- NOTE | 2020-12-22 07:01 | XR ---
EXAMINATION TYPE: XR chest 1V portable DATE OF EXAM: 12/22/2020 COMPARISON: 12/21/2020 HISTORY: Shortness of breath TECHNIQUE: Single frontal view of the chest is obtained. FINDINGS: The heart size is normal for the technique the pulmonary vasculature is not congested. The re is a moderate right pleural effusion and a small left pleural effusion. There is no pneumothorax. The lungs are essentially clear although there is a thick linear band of opacity in the retrocardiac region which could represent an interstitial scar or atelectasis. The osseous structures are intact. There has been no interval change. IMPRESSION: Moderate right pleural effusion and small retrocardiac opacity as described above. There is been no interval change.
[2020-12-22] MEDS: PANTOPRAZOLE 40 MG TABLET PO SCH (07:59)
[2020-12-22] MEDS: ATORVASTATIN 20 MG TAB PO SCH (07:59)
[2020-12-22] MEDS: GABAPENTIN 300 MG CAP PO SCH ×2 (07:59→20:26)
[2020-12-22] MEDS: FLUDROCORTISONE 0.1 MG TAB PO SCH ×3 (07:59→20:26)
[2020-12-22] MEDS: VORICONAZOLE 200 MG TAB PO SCH ×2 (08:00→20:26)
[2020-12-22] MEDS: MIDODRINE 5 MG TAB PO SCH ×3 (08:00→17:52)
[2020-12-22] MEDS: VANCOMYCIN 125 MG CAPSULE PO SCH ×4 (08:01→20:26)
[2020-12-22] MEDS: LIDOCAINE 5% PATCH TOPICAL SCH (08:05)
[2020-12-22 08:11] LABS: Anisocytosis Slight; Basophils % (A) 0 %; Eosinophils # (A) 0.1 k/uL (0-0.7); Eosinophils % (A) 1 %; HCT 35.3 % (34.0-46.0); HGB 11.6 gm/dL (11.4-16.0); Lymphocytes # (A) 0.2 k/uL (1.0-4.8); Lymphocytes % (A) 2 %; MCH 31.1 pg (25.0-35.0); MCHC 32.7 g/dL (31.0-37.0); MCV 95.1 fL (80.0-100.0); Macrocytosis Slight; Monocytes # (A) 0.4 k/uL (0-1.0); Monocytes % (A) 3 %; Neutrophils # (A) 12.5 k/uL (1.3-7.7); Neutrophils % (A) 93 %; Platelet Count 134 k/uL (150-450); Poikilocytosis Slight; RBC 3.72 m/uL (3.80-5.40); RDW 16.8 % (11.5-15.5); WBC 13.5 k/uL (3.8-10.6)
[2020-12-22 08:34] LABS: Poikilocytosis (M) Present
[2020-12-22] MEDS ORDERED: SODIUM CHLORIDE 0.9% 500 ML 250 ML IV ONE (10:16)
--- NOTE | 2020-12-22 11:17 | P.PN ---
Subjective Progress Note Date: 12/22/20 Principal diagnosis: This 85-year-old female on peritoneal dialysis who came in with peritonitis, with Enterobacter cloacae on 12/12/2020. Subsequent cultures are negative on 12/17/2020 of the PD cell count is down to normal, to 16 on 12/20/2020. She is being treated with antibiotics. She remains hypotensive sometimes going to the systolic of 60. Day before Yesterday I held her peritoneal dialysis. I had recommended that she be moved and started on levo fed. That has not happened. This morning she remains weak and tired but awake and alert warm to touch. Blood pressure mean slow 77/54-87/63 heart rate in the 90s afebrile. Her PD exchanges are even, at 2.5%, 2000 mL 4 exchanges per day. Denies any abdominal pain. Her PD cell count was 1280 is down to 626 on 12/18/2020, and down to 16 as of 12/20/2020 . Objective - Vital Signs Vital signs: Vital Signs Temp 97.5 F L 12/22/20 06:04 Pulse 96 12/22/20 08:11 Resp 18 12/22/20 08:11 BP 77/54 12/22/20 10:15 Pulse Ox 98 12/22/20 08:11 Intake & Output 12/21/20 12/22/20 12/22/20 18:59 06:59 18:59 Intake Total 500 100 Balance 500 100 Weight 62 kg Intake: Intake, IV Titration 500 Amount Sodium Chloride 0.9% 500 500 ml 500 ml @ 999 mls/hr IV .Q31M ONE Rx#:[id number] Oral 100 Other: Voiding Method Diaper Diaper Diaper Incontinent # Voids 0 # Bowel Movements 1 1 Examination she is awake alert oriented. She is able to speak but slowly. Does not seem to have dysphagia HEENT exam no JVP neck is supple no facial asymmetry Lungs are significant and bilateral basal bronchial breath sounds Heart sounds unremarkable for any murmur rub gallop Abdomen soft PD exit site is clean Extreme exam was mild edema Neurologically awake alert oriented but generalized weakness - Labs CBC & Chem 7: 12/22/20 06:44 12/20/20 09:07 Labs: Abnormal Lab Results - Last 24 Hours (Table) 12/22/20 Range/Units 06:44 WBC 13.5 H (3.8-10.6) k/uL RBC 3.72 L (3.80-5.40) m/uL RDW 16.8 H (11.5-15.5) % Plt Count 134 L (150-450) k/uL Neutrophils # 12.5 H (1.3-7.7) k/uL Lymphocytes # 0.2 L (1.0-4.8) k/uL Microbiology - Last 24 Hours (Table) 12/20/20 21:00 Gram Stain - Preliminary Peritoneal Fluid Body Fluid Culture - Preliminary 12/20/20 20:22 Blood Culture - Preliminary Blood No Growth after 24 hours 12/20/20 19:59 Blood Culture - Preliminary Blood No Growth after 24 hours 12/19/20 16:32 Urine Culture - Preliminary Urine,Voided Yeast species 12/17/20 10:30 Gram Stain - Final Peritoneal Fluid Body Fluid Culture - Final Assessment and Plan Assessment: Impression 1. ESRD on peritoneal dialysis with peritonitis, Enterobacter cloacae. PD cell count is back to normal on 12/18 and 12/20/2020 the last several count was 16 and the repeat culture is negative. No abdominal pain. 2. Hypotension secondary to septic syndrome. Echo pending. Patient is admitted drain and Florinef and boluses being given for low blood pressure 3. Profound weakness secondary to septic syndrome. 4. Anemia hemoglobin is about target at 12.2 5. Chest x-ray shows moderate right pleural effusion and a small retrocardiac opacity Recommendation 1. Continue peritoneal dialysis with 2.5% 2000 mL 4 exchanges a day we'll keep a close watch on her. Hold PD exchanges his blood pressure is less than 80 and call me 2. Obtain echocardiogram to rule out pericardial effusion and tamponade. 3. Avoid giving her more IV fluid. 4. Check TSH
[2020-12-22 12:54] LABS: African American GFR (CKD) 12.6 (60.0-200.0); Anion Gap 2.5 mmol/L (4.00-12.00); BUN/Creat Ratio 7.5 Ratio (12.00-20.00); Calcium 7.3 mg/dL (8.7-10.3); Carbon Dioxide 32.5 mmol/L (21.6-31.8); Non-African American GFR(CKD) 10.8 (60.0-200.0); Potassium 3.6 mmol/L (3.5-5.5)
--- NOTE | 2020-12-22 13:08 | CT ---
EXAMINATION TYPE: CT brain wo con DATE OF EXAM: 12/22/2020 COMPARISON: None HISTORY: Slurred speech, peritonitis CT DLP: [id number] mGycm Automated exposure control for dose reduction was used. FINDINGS: The ventricles, basal cisterns and sulci over the convexities are mildly prominent. Mild atrophy and consistent with the patient's age. There is no mass effect or shift of midline structures. No abnormal density is seen throughout the brain parenchyma. There is no acute intra or extra-axial h emorrhage. The posterior fossa including the brainstem, fourth ventricle and cerebellar pontine angles are gross ly normal. Intraorbital contents appear normal and symmetric. Visualized paranasal sinuses, mastoid air cells and inner ear cavities are well aerated. The calvarium is intact. IMPRESSION: Mild atrophy appropriate for the patient's age. There is no acute bleed or mass effect.
[2020-12-22] MEDS: ACETAMINOPHEN TAB 325 MG TAB PO PRN (14:40)
--- NOTE | 2020-12-22 19:45 | PN ---
PROGRESS NOTE DATE OF SERVICE: 12/22/2020 This 85-year-old woman who was admitted with acute peritonitis also had significant pain. The patient has recurrent hypotension which is multifactorial at this time. The patient is not making significant improvement after several days of intensive treatment. CT scan of the brain showed atrophy. No acute changes are noted. I discussed the case with at length with the granddaughter over the phone, and they would like to proceed with information regarding hospice and further evaluation. The patient has received multiple IV fluids. Past medical history reviewed. REVIEW OF SYSTEMS: CARDIOVASCULAR SYSTEM: No angina. RESPIRATION: As mentioned earlier. GI: As mentioned earlier. : No dysuria. NERVOUS SYSTEM: No numbness, weakness. CURRENT MEDICATIONS: Reviewed. They include Tylenol, Lipitor, Rocephin, Neurontin, Synthroid, Lidoderm. Doses and other medications are noted. PHYSICAL EXAMINATION: Patient is alert, oriented x2. Pulse is 96, blood pressure 87/63, respiration 18, temperature 97.2, pulse ox 98% on 3 L. HEENT: Conjunctivae normal. NECK: No jugular venous distention. CARDIOVASCULAR: S1, S2 muffled. RESPIRATION: Breath sounds diminished at the bases. A few scattered rhonchi. No crackles. ABDOMEN: Soft. Mild diffuse discomfort. No guarding. No rigidity. No mass palpable. LEGS: No edema. No swelling. NERVOUS SYSTEM: Diffusely weak. SKIN: No ulcer, rash, bleeding. LAB STUDIES: WBC 13.5. Sodium 134. Other labs are noted. Cultures are noted. Yeast and Enterobacter cloacae. ASSESSMENT: 1. Acute peritonitis with abdominal pain with nausea and vomiting with possible sepsis, present on admission, continued, ongoing. 2. Acute Clostridium difficile colitis, present on admission. 3. Enterobacter cloacae from the cultures. 4. Left hip and left femur pain, possibly musculoskeletal. 5. Hypotension, possibly secondary to sepsis, persistent. 6. Ghazala glabrata and Escherichia coli from the urine culture. Acute urinary tract infection, present on admission. 7. Shortness of breath with chronic obstructive pulmonary disease, acute exacerbation, present on admission. 8. Hyponatremia secondary to renal failure. 9. Hypomagnesemia, possibly secondary to diarrhea and poor oral intake. 10.Change in mental status, acute metabolic encephalopathy, multifactorial. 11.Chronic renal failure, end-stage renal disease, on peritoneal dialysis. 12.Dizziness. 13.Gait dysfunction. 14.History of vertigo. 15.Hypertension. 16.History of rheumatoid arthritis. 17.Hypothyroidism. 18.Back surgery, degenerative joint disease. 19.History of anxiety. 20.NO CODE, NO CPR, NO VENT. RECOMMENDATIONS AND DISCUSSION: I recommend to continue current medications, continue with symptomatic treatment. Otherwise at this time, as mentioned earlier, I had a detailed discussion with the patient's granddaughter over the phone, who will talk with the family and asked for information regarding hospice to arrange possible hospice at home. Otherwise, continue the current medications as mentioned earlier. Prognosis is extremely guarded because of the recurrent hypotension and multiple other complex medical issues, as mentioned earlier. As mentioned earlier, the patient has not made any significant progress at all in the hospital. She seems to have multiple complex medical issues. A copy of this dictation is being forwarded to Dr. Deon Ray, who is the primary physician. CHRIS / KENIAN: [id number] /
--- NOTE | 2020-12-22 20:19 | PN ---
PROGRESS NOTE DATE OF SERVICE: 12/22/2020 REASON FOR FOLLOWUP: 1. Enterobacter bacteremia secondary to peritonitis. 2. C difficile colitis and UTI. INTERVAL HISTORY: The patient is afebrile. The patient mentioned feeling slightly better , abdominal pain, though. Some nausea but no vomiting. No abdominal pain. She did have one BM today; slightly loose stool per the nursing staff. PHYSICAL EXAMINATION: Blood pressure is 110/70, pulse of 96, temperature 95.9. She is 91% on 4 L nasal cannula. GENERAL DESCRIPTION: General description is an elderly female lying in bed in no distress. RESPIRATORY SYSTEM: Unlabored breathing. Clear to auscultation anteriorly. HEART: S1, S2. Regular rate and rhythm. ABDOMEN: Soft. Mildly distended. No guarding or rigidity. LABS: Hemoglobin is 11.6, white count down to 13.5. BUN of 27, creatinine 0.6. DIAGNOSTIC IMPRESSION AND PLAN: 1. Patient with Enterobacter bacteremia related to peritoneal dialysis with peritonitis with repeat culture that has been negative so far. Patient is currently covered with Rocephin; that will be continued for now. 2. Patient with Clostridium difficile colitis with overall improvement on oral vancomycin; to finish a 10-day course of therapy. 3. Patient with urinary tract infection with urine showing Ghazala glabrata on baseline. White count showing a downward trend. Family at the bedside. Questions were answered. MMODL / IJN: [id number] / MTDD
[2020-12-23] MEDS: DIALYSIS (PERIT 2.5%) 2,000 ML 50 G/2,000 ML BAG INTRAPERIT SCH ×3 (01:06→11:22)
[2020-12-23] MEDS: SEVELAMER 800 MG TAB PO SCH ×3 (01:06→16:33)
[2020-12-23 04:37] LABS: T4, Free (Free Thyroxine) 1.13 ng/dL (0.78-2.19)
[2020-12-23] MEDS: LEVOTHYROXINE 75 MCG TAB PO SCH (05:55)
[2020-12-23] MEDS: ATORVASTATIN 20 MG TAB PO SCH (08:35)
[2020-12-23] MEDS: PANTOPRAZOLE 40 MG TABLET PO SCH (08:35)
[2020-12-23] MEDS: GABAPENTIN 300 MG CAP PO SCH (08:35)
[2020-12-23] MEDS: LIDOCAINE 5% PATCH TOPICAL SCH (08:35)
[2020-12-23] MEDS: MIDODRINE 5 MG TAB PO SCH ×3 (08:36→16:33)
[2020-12-23] MEDS: VANCOMYCIN 125 MG CAPSULE PO SCH (08:36)
[2020-12-23] MEDS: FLUDROCORTISONE 0.1 MG TAB PO SCH ×2 (08:36→16:33)
[2020-12-23] MEDS: VORICONAZOLE 200 MG TAB PO SCH (08:36)
--- NOTE | 2020-12-23 08:57 | P.PN ---
Subjective Patient is seen in follow-up for end-stage renal disease. She is maintained on peritoneal dialysis. Quite lethargic. Blood pressure remains on the lower side. Vital signs are stable. General: Appears lethargic. HEENT: Head exam is unremarkable. LUNGS: Breath sounds decreased. HEART: Rate and Rhythm are regular. ABDOMEN: Soft, no distention. EXTREMITITES: 2+ edema. Objective - Vital Signs Vital signs: Vital Signs Temp 96 F L 12/23/20 05:58 Pulse 86 12/23/20 05:58 Resp 15 12/23/20 05:58 BP 85/59 12/23/20 05:58 Pulse Ox 94 L 12/23/20 05:58 Intake & Output 12/22/20 12/23/20 12/23/20 18:59 06:59 18:59 Intake Total 350 Balance 350 Weight 60.5 kg Intake: Oral 350 Other: Voiding Method Diaper Diaper Incontinent Incontinent # Voids 0 # Bowel Movements 2 0 - Labs CBC & Chem 7: 12/22/20 06:44 12/22/20 06:44 Labs: Abnormal Lab Results - Last 24 Hours (Table) 12/22/20 12/22/20 Range/Units 06:44 06:44 Sodium 134 L (135-145) mmol/L Carbon Dioxide 32.5 H (21.6-31.8) mmol/L Anion Gap 2.50 L (4.00-12.00) mmol/L Creatinine 3.6 H (0.6-1.5) mg/dL Est GFR (CKD-EPI)AfAm 12.6 L (60.0-200.0) Est GFR (CKD-EPI)NonAf 10.8 L (60.0-200.0) BUN/Creatinine Ratio 7.50 L (12.00-20.00) Ratio Calcium 7.3 L (8.7-10.3) mg/dL TSH 26.800 H (0.465-4.680) mIU/L Microbiology - Last 24 Hours (Table) 12/20/20 20:22 Blood Culture - Preliminary Blood No Growth after 48 hours 12/20/20 19:59 Blood Culture - Preliminary Blood No Growth after 48 hours 12/20/20 21:00 Gram Stain - Preliminary Peritoneal Fluid Body Fluid Culture - Preliminary 12/19/20 16:32 Urine Culture - Preliminary Urine,Voided Ghazala glabrata Assessment and Plan Plan: Assessment: 1. End-stage renal disease maintained on peritoneal dialysis. 2. Enterobacter bacteremia with peritonitis and UTI. Urine culture positive for E. coli and Ghazala. On antibiotics. Peritoneal fluid white cell count down to 16. 3. Chronic kidney disease mineral bone disease maintained on Renvela. Phosphorus 3.8. 4. C. diff colitis On oral vancomycin. 5. Hyponatremia secondary to chronic kidney disease. 6. Hypomagnesemia secondary to poor intake and GI losses. Replaced. 7. Volume overload. 8. Hypotension related to sepsis. Cortisol level not low. Plan: Maintain PD exchanges - hold for systolic blood pressure less than 90. Decrease gabapentin to 300 mg once daily. Maintain midodrine. Stop Florinef and start IV hydrocortisone. Hospice being considered.
[2020-12-23] MEDS ORDERED: GABAPENTIN 300 MG CAP PO SCH (09:00)
[2020-12-23] MEDS: HYDROCORTISONE SUCCINATE 100 MG/2 ML VIAL IV SCH ×2 (09:11→16:33)
[2020-12-23 11:35] VITALS: BP 95/65; TEMP 97.2
[2020-12-23 11:57] VITALS: PULSE 106; RESP 16
[2020-12-23 12:38] VITALS: BMI 26.0
--- NOTE | 2020-12-23 15:13 | P.PN ---
Subjective Progress Note Date: 12/23/20 This is a pleasant 85-year-old female who originally presented to the emergency department at [place] for increased shortness of breath with possible infection and not feeling well with increased weakness over the last few days. Patient was transferred here to [facility] for further evaluation and nephrology evaluation. She reports to seeing Dr. Elizondo nephrology out of [place] as she lives in [place] and has been doing nightly peritoneal dialysis by herself. Patient states her primary care provider is Dr. Ray. Patient states she has not had much of an appetite and did have an episode of nausea with vomiting reported episodes of diarrhea. She states he has difficulty in eating and chewing. Patient states her last admission to hospital she was discharged on home oxygen at 2 L and patient presented here with continued shortness of breath and low oxygen saturations and currently on 4 L oxygen via nasal cannula. She was initiated on IV Rocephin and vancomycin and will consult infectious disease a possibility of peritonitis and/or possible urinary tract infection. Nephrology also consulted. Patient denies any chest pain or palpitations. Patient denies any recent sick contacts or fevers and states that her peritoneal fluid has been clear and no drainage or discharge noted around the site on her abdomen. Patient states she has also been having low blood pr essures and adjustments are being made in the outpatient setting by primary care provider. 12/12/2020 Patient is seen in follow-up this morning extremely lethargic and overall not feeling well with intermittent periods of nausea. C. diff testing was positive and patient was started on oral Vanco and infectious disease following closely. She did have a femoral catheter for dialysis which is being sent for microbiology and being removed. Patient continues with peritoneal dialysis with nephrology following closely. Patient also receiving peritoneal IV antibiotics in the form of cefepime and vancomycin. Patient's blood pressures have been running on the lower side and patient has midodrine as needed and will change to scheduled and monitor blood pressure closely. 12/13/2020 Patient is seen and evaluated in follow-up this morning continues to have abdominal discomfort and is also having some left hip pain and will order hip x- ray. Repeat chest x-ray ordered and pending. Will order CT abdomen and pelvis as well. She continues with peritoneal dialysis and most recently had right femoral line discontinued and sent for analysis and awaiting finalized cultures. Urine culture preliminary showing gram-negative bacilli along with the species and dialysate Gram stain preliminary also showing gram-negative with infectious disease following closely and patient is continued on IV antibiotics in the form of ceftriaxone along with peritoneal exchanges including cefepime per infectious disease recommendations. Patient continues with loose stools and being treated for C. diff with oral vancomycin. Blood pressure is improved today and patient is receiving midodrine 5 mg 3 times a day. Nephrology is following closely and morning labs continue to be pending. Patient is afebrile and continues to have shortness of breath and maintained on 3 L via nasal cannula. Encouraged oral intake and patient continues to have intermittent nausea and decreased oral intake with no real appetite. 12/16/2020 Patient is seen in follow up this morning and quite tearful on exam. Patient st ates she lost her son this weekend and would like to make the . Patient continues on IV antibiotics in the form of Ceftriaxone with infectious disease following closely. Patient also being followed closely by nephrology. Patient continues to be weak and will have PT/OT evaluate the patient as she is planning on ECF. Patient will also need hemodialysis if going to ecf. Patient continues to have left hip pain. Patient also continues on oral vanco for c-diff. Dialysate cultures showing enterobacter cloacae with urine culture showing ecoli and e. cloacae as well. Repeat peritoneal fluid culture pending. 12/17/2020 Patient is seen and evaluated this morning continues to have left leg pain and will order femur x-ray as hip x-ray was negative. Patient is continued on peritoneal dialysis with nephrology following closely and will discuss with possible temporary cath placement for hemodialysis as patient will be going to [facility] and unable to accommodate CAPD exchanges. Urine culture finalized showing Ghazala glabrata along with E. coli and blood cultures remain negative. Initial Gram stain of dialysate finalized showing Enterobacter Cloacae infectious disease following closely. Repeat body fluid cultures have been negative and catheter tip was negative as well. Sodium continues to be low at 124 with a potassium of 4.1, BUNs 28 current creatinine is 3.41. White blood count is 11.0 and hemoglobin is stable at 13.0. Patient continues on IV ceftriaxone along with oral vancomycin for C. diff. Nephrology following closely and patient is maintained on sodium chloride tablets and continued peritoneal dialysis exchanges. 12/18/2020 Patient is seen in follow up this morning and has been having nausea with vomiting and increased abdominal pain. Patient is maintained on IV antibiotics along with oral vanco for cdiff. Patient WBC elevated to 21 today and intake has been poor. Sodium remains low and worsened today to 124. Nephrology and infectious disease following. Femur xray was negative. Discussed with nephrology about placing temporary dialysis catheter as she will be going to [facility] once stabilized and consult to vascular surgery Dr. [place] consulted. Patient does h ave an AV fistula in the left arm from previous. Cell count of PD fluid sent for analysis and pending. 12/19/2020 Patient is seen and evaluated in follow-up this morning stating her abdominal discomfort has somewhat subsided and patient denies any further vomiting. Patient continues to be nauseated at times and continues with pain of the left hip. Nephrology along with vascular surgery and infectious disease following closely and patient is continued on IV antibiotics. Patient to continue 2 more days of oral Vanco to complete the ten-day course for C. diff. Patient white blood count elevated at 27 with hemoglobin 11.8, sodium is 127 with a potassium of 3.6 and current creatinine is 3.25. Patient is continued on peritoneal dialysis and does have a forearm AV fistula of the left side noted and vascular surgery along with nephrology to discuss using this for hemodialysis or possibly placing a temporary dialysis catheter for hemodialysis while in the outpatient setting at [facility]. Patient having some left arm swelling and ordered a venous Doppler for further assessment and to rule out DVT. Patient clinically appears slightly volume overloaded with some mild lower extremity edema and increasing shortness of breath. Chest x-ray was also ordered today. Patient remains afebrile. Cell count of peritoneal fluid significantly improved. 12/20/2020 Patient is seen in follow-up this morning having some extreme abdominal discomfort associated with nausea and vomiting and this was noted to be after breakfast. Patient states that her left hip pain has subsided. Left upper extremity continues to be edematous and swollen and Doppler was negative that was done yesterday for DVT. Discussion is being had with nephrology and vascular surgery about placement of a permacath for hemodialysis and possibility of using her left forearm AV fistula. Patient continues on peritoneal dialysis and is maintained on IV antibiotics with infectious disease following closely. Repeat urinalysis continues to be positive for urinary tract infection and awaiting repeat cultures to finalized. White blood count continues to be elevated at 20.2 and hemoglobin is stable at 12.2. Sodium is improved at 130 and potassium is 3.5 current creatinine is 3.03. Patient continues on PD exchanges every 6 hours and nephrology is following closely. Hepatitis panel was negative. Patient continues to have hypotension and will increase midodrine. Patient is extremely weak and states she was unable to work with physical therapy today getting up as her legs were extremely unsteady and unable to stand. 1+ pitting edema noted to bilateral lower extremities. 12/23/2020 Patient is seen and evaluated in follow-up this morning extremely lethargic and difficult to arouse and having severe episodes of hypotension requiring fluid bolus. Patient continues on peritoneal dialysis along with IV ceftriaxone and Vfend and will continue. Discussion is being had to go home with hospice and awaiting for accepting hospice and arrangements through case management to be made for hospice in the home setting. Granddaughter who is her power of admitted attorneys states there will be people at the home to care for her and stay with her during hospice. Patient is clinically deteriorating and not responding to treatment and is hospice appropriate. No new labs from today. Review of systems: Constitutional: reports of fatigue, no reports of fever or chills Cardiovascular: No reports of chest pain or palpitations Respiratory: reports of shortness of breath GI: Reports nausea and vomiting today and abdominal : No reports of dysuria or retention Neurovascular: reports generalized weakness , reports left hip pain All medications have been reviewed Active Medications Acetaminophen (Acetaminophen Tab 325 Mg Tab) 650 mg PO Q6HR PRN PRN Reason: Mild Pain or Fever > 100.5 Last Admin: 12/22/20 14:40 Dose: 650 mg Documented by: Atorvastatin Calcium (Atorvastatin 20 Mg Tab) 20 mg PO DAILY [facility] Last Admin: 12/23/20 08:35 Dose: 20 mg Documented by: Fludrocortisone Acetate (Fludrocortisone 0.1 Mg Tab) 0.1 mg PO TID [facility] Last Admin: 12/23/20 08:36 Dose: 0.1 mg Documented by: Gabapentin (Gabapentin 300 Mg Cap) 300 mg PO DAILY [facility] Last Admin: 12/23/20 09:07 Dose: Not Given Documented by: Hydrocortisone Sodium Succinate (Hydrocortisone Succinate 100 Mg/2 Ml Vial) 100 mg IV Q8HR [facility] Last Admin: 12/23/20 09:11 Dose: 100 mg Documented by: Ceftriaxone Sodium 2 gm/ (Sodium Chloride) 50 mls @ 100 mls/hr IVPB Q24H [facility] Last Admin: 12/23/20 08:36 Dose: 100 mls/hr Documented by: Peritoneal Dialysis Solution (Delflex With 2.5% Dextrose (2,000 Ml)) 50 g in 2,000 mls @ 0 mls/hr INTRAPERIT Q6HR [facility]; Protocol Last Admin: 12/23/20 11:22 Dose: 2,000 mls/hr Documented by: Levothyroxine Sodium (Levothyroxine 75 Mcg Tab) 75 mcg PO DAILY@0630 [facility] Last Admin: 12/23/20 05:55 Dose: 75 mcg Documented by: Lidocaine (Lidocaine 5% Patch) 1 patch TOPICAL DAILY [facility]; Protocol Last Admin: 12/23/20 08:35 Dose: 1 patch Documented by: Meclizine HCl (Meclizine 12.5 Mg Tab) 12.5 mg PO DAILY PRN PRN Reason: DIZZINESS Midodrine (Midodrine 5 Mg Tab) 10 mg PO AC-TID [facility] Last Admin: 12/23/20 11:57 Dose: 10 mg Documented by: Miscellaneous Information (Potassium Replacement Protocol 1 Each Misc) 1 each MISCELLANE DAILY PRN; Protocol PRN Reason: Per Protocol Miscellaneous Information (Magnesium Replacement Protocol 1 Each Misc) 1 each MISCELLANE DAILY PRN; Protocol PRN Reason: Per Protocol Naloxone HCl (Naloxone 0.4 Mg/Ml 1 Ml Vial) 0.2 mg IV Q2M PRN PRN Reason: Opioid Reversal Ondansetron HCl (Ondansetron 4 Mg/2 Ml Vial) 4 mg IVP Q8HR PRN PRN Reason: Nausea And Vomiting Last Admin: 12/20/20 09:40 Dose: 4 mg Documented by: Pantoprazole Sodium (Pantoprazole 40 Mg Tablet) 40 mg PO AC-BRKFST [facility] Last Admin: 12/23/20 08:35 Dose: 40 mg Documented by: Sevelamer Carbonate (Sevelamer 800 Mg Tab) 1,600 mg PO Q8HR [facility] Last Admin: 12/23/20 08:35 Dose: 1,600 mg Documented by: Voriconazole (Voriconazole 200 Mg Tab) 200 mg PO Q12HR [facility] Last Admin: 12/23/20 08:36 Dose: 200 mg Documented by: Physical exam: Gen: This is a pleasant 85-year-old female awake, alert and oriented 2 thin built. Ill appearing, extremely lethargic today. Normally responsive and fatigues easily. HEENT: Head is atraumatic, normocephalic. Pupils equal, round. Sclerae is anicteric. NECK: Supple. No JVD. No lymphadenopathy. No thyromegaly. LUNGS: Diminished breath sounds bilaterally with some scattered rhonchi and crackles noted. HEART: S1, S2 are muffled ABDOMEN: Soft. Bowel sounds are present. No masses. tender on palpation. Peritoneal dialysis catheter intact with no surrounding redness or drainage noted EXTREMITIES: No pedal edema. No calf tenderness. Left femur pain continues and radiating down, mild bilateral lower extremity edema noted 1+, upper extremity bilateral edema and generalized swelling noted as well NEUROLOGICAL: Patient is asleep minimally arousable, alert and oriented x2. Falls asleep easily. Diffusely weak. Assessment and plan: abdominal pain with nausea and vomiting possible sepsis, present on admission with enterobacter cloacae Enterobacter cloacae bacteremia secondary to peritoneal dialysis catheter associated peritonitis Hypotension Clostridium difficile Left hip and left femur pain, possibly musculoskeletal Ghazala glabrata and ecoli from with urine culture acute urinary tract infection, present on admission Shortness of breath with COPD acute exacerbation Hyponatremia secondary to renal failure Hypomagnesemia possibly secondary to diarrhea and poor oral intake change in mental status, acute metabolic encephalopathy, multifactorial Chronic renal failure with End-stage renal disease on peritoneal dialysis Dizziness Gait dysfunction History of vertigo Hypertension History of Rheumatoid arthritis Hypothyroidism History of back surgery, DJD History of Anxiety Full code Plan: Recommend to continue with current medications, management, and symptomatic treatment. Patient is continued on IV ceftriaxone. infectious disease and Nephrology following closely. Discussion is being had about hospice in the home and arrangements are being made through Case management discharge planning needs. Awaiting accepting hospice that can accommodate in the home. Due to multiple complex medical issues, prognosis is extremely poor and guarded Objective - Vital Signs Vital signs: Vital Signs Temp 96 F L 12/23/20 05:58 Pulse 106 H 12/23/20 09:02 Resp 15 12/23/20 09:02 BP 83/52 12/23/20 09:02 Pulse Ox 94 L 12/23/20 05:58 Intake & Output 12/22/20 12/23/20 12/23/20 18:59 06:59 18:59 Intake Total 350 Balance 350 Weight 60.5 kg Intake: Oral 350 Other: Voiding Method Diaper Diaper Incontinent Incontinent # Voids 0 # Bowel Movements 2 0 - Labs CBC & Chem 7: 12/22/20 06:44 12/22/20 06:44 Labs: Abnormal Lab Results - Last 24 Hours (Table) 12/22/20 12/22/20 Range/Units 06:44 06:44 Sodium 134 L (135-145) mmol/L Carbon Dioxide 32.5 H (21.6-31.8) mmol/L Anion Gap 2.50 L (4.00-12.00) mmol/L Creatinine 3.6 H (0.6-1.5) mg/dL Est GFR (CKD-EPI)AfAm 12.6 L (60.0-200.0) Est GFR (CKD-EPI)NonAf 10.8 L (60.0-200.0) BUN/Creatinine Ratio 7.50 L (12.00-20.00) Ratio Calcium 7.3 L (8.7-10.3) mg/dL TSH 26.800 H (0.465-4.680) mIU/L Microbiology - Last 24 Hours (Table) 12/20/20 20:22 Blood Culture - Preliminary Blood No Growth after 48 hours 12/20/20 19:59 Blood Culture - Preliminary Blood No Growth after 48 hours 12/20/20 21:00 Gram Stain - Preliminary Peritoneal Fluid Body Fluid Culture - Preliminary 12/19/20 16:32 Urine Culture - Preliminary Urine,Voided Ghazala glabrata
[2020-12-23] MEDS: ACETAMINOPHEN TAB 325 MG TAB PO PRN (16:37)
--- NOTE | 2020-12-24 09:24 | P.DS ---
Providers Date of admission: 12/11/20 01:40 Expected date of discharge: 12/23/20 Attending physician: Jessica Stephen Consults: 12/11/20 03:09 Consult Physician Routine Consulting Provider: Chasidy Basurto Consult Reason/Comments: HD Do you want consulting provider notified?: Yes 12/11/20 09:30 Consult Physician Urgent Consulting Provider: Alex Jansen Consult Reason/Comments: possible peritonitis Do you want consulting provider notified?: Yes 12/18/20 12:13 Consult Physician Urgent Consulting Provider: Stephon Washington Consult Reason/Comments: Dialysis catheter placement for hemodialysis Do you want consulting provider notified?: Yes Primary care physician: Deon Ray MD Hospital Course: Final diagnosis abdominal pain with nausea and vomiting possible sepsis, present on admission with enterobacter cloacae Enterobacter cloacae bacteremia secondary to peritoneal dialysis catheter associated peritonitis Hypotension Clostridium difficile Left hip and left femur pain, possibly musculoskeletal Ghazala glabrata and ecoli from with urine culture acute urinary tract infection, present on admission Shortness of breath with COPD acute exacerbation Hyponatremia secondary to renal failure Hypomagnesemia possibly secondary to diarrhea and poor oral intake change in mental status, acute metabolic encephalopathy, multifactorial Chronic renal failure with End-stage renal disease on peritoneal dialysis Dizziness Gait dysfunction History of vertigo Hypertension History of Rheumatoid arthritis Hypothyroidism History of back surgery, DJD History of Anxiety No code Discharge disposition Patient is being discharged in a stable condition with guarded prognosis to home. Patient will be signing on with hospice in the home setting per family request. Patient will follow-up with Dr. Gunner Ray in the outpatient setting upon discharge. Total time taken is greater than 35 minutes. Hospital course This is a pleasant 85-year-old female who originally presented to the emergency department at [place] for increased shortness of breath with possible infection and not feeling well with increased weakness over the last few days. Patient was transferred here to [facility] for further evaluation and nephrology evaluation. She reports to seeing Dr. Elizondo nephrology out of [facility] as she lives in [place] and has been doing nightly peritoneal dialysis by herself. Patient states her primary care provider is Dr. Ray. Patient states she has not had much of an appetite and did have an episode of nausea with vomiting reported episodes of diarrhea. She states he has difficulty in eating and chewing. Patient states her last admission to hospital she was discharged on home oxygen at 2 L and patient presented here with continued shortness of breath and low oxygen saturations and currently on 4 L oxygen via nasal cannula. She was initiated on IV Rocephin and vancomycin and will consult infectious disease a possibility of peritonitis and/or possible urinary tract infection. Nephrology also consulted. Patient denies any chest pain or palpitations. Patient denies any recent sick contacts or fevers and states that her peritoneal fluid has been clear and no drainage or discharge noted around the site on her abdomen. Patient states she has also been having low blood pressures and adjustments are being made in the outpatient setting by primary care provider. 12/12/2020 Patient is seen in follow-up this morning extremely lethargic and overall not feeling well with intermittent periods of nausea. C. diff testing was positive and patient was started on oral Vanco and infectious disease following closely. She did have a femoral catheter for dialysis which is being sent for microbiology and being removed. Patient continues with peritoneal dialysis with nephrology following closely. Patient also receiving peritoneal IV antibiotics in the form of cefepime and vancomycin. Patient's blood pressures have been running on the lower side and patient has midodrine as needed and will change to scheduled and monitor blood pressure closely. 12/13/2020 Patient is seen and evaluated in follow-up this morning continues to have abdominal discomfort and is also having some left hip pain and will order hip x- ray. Repeat chest x-ray ordered and pending. Will order CT abdomen and pelvis as well. She continues with peritoneal dialysis and most recently had right femoral line discontinued and sent for analysis and awaiting finalized cultures. Urine culture preliminary showing gram-negative bacilli along with the species and dialysate Gram stain preliminary also showing gram-negative with infectious disease following closely and patient is continued on IV antibiotics in the form of ceftriaxone along with peritoneal exchanges including cefepime per infectious disease recommendations. Patient continues with loose stools and being treated for C. diff with oral vancomycin. Blood pressure is improved today and patient is receiving midodrine 5 mg 3 times a day. Nephrology is following closely and morning labs continue to be pending. Patient is afebrile and continues to have shortness of breath and maintained on 3 L via nasal cannula. Encouraged oral intake and patient continues to have intermittent nausea and decreased oral intake with no real appetite. 12/16/2020 Patient is seen in follow up this morning and quite tearful on exam. Patient states she lost her son this weekend and would like to make the . Patient continues on IV antibiotics in the form of Ceftriaxone with infectious disease following closely. Patient also being followed closely by nephrology. Patient continues to be weak and will have PT/OT evaluate the patient as she is planning on ECF. Patient will also need hemodialysis if going to ecf. Patient continues to have left hip pain. Patient also continues on oral vanco for c-diff. Dialysate cultures showing enterobacter cloacae with urine culture showing ecoli and e. cloacae as well. Repeat peritoneal fluid culture pending. 12/17/2020 Patient is seen and evaluated this morning continues to have left leg pain and will order femur x-ray as hip x-ray was negative. Patient is continued on peritoneal dialysis with nephrology following closely and will discuss with possible temporary cath placement for hemodialysis as patient will be going to ECF and unable to accommodate CAPD exchanges. Urine culture finalized showing Ghazala glabrata along with E. coli and blood cultures remain negative. Initial Gram stain of dialysate finalized showing Enterobacter Cloacae infectious disease following closely. Repeat body fluid cultures have been negative and catheter tip was negative as well. Sodium continues to be low at 124 with a potassium of 4.1, BUNs 28 current creatinine is 3.41. White blood count is 11.0 and hemoglobin is stable at 13.0. Patient continues on IV ceftriaxone along with oral vancomycin for C. diff. Nephrology following closely and patient is maintained on sodium chloride tablets and continued peritoneal dialysis exchanges. 12/18/2020 Patient is seen in follow up this morning and has been having nausea with vomiting and increased abdominal pain. Patient is maintained on IV antibiotics along with oral vanco for cdiff. Patient WBC elevated to 21 today and intake has been poor. Sodium remains low and worsened today to 124. Nephrology and infectious disease following. Femur xray was negative. Discussed with nephrology about placing temporary dialysis catheter as she will be going to ECF once stabilized and consult to vascular surgery Dr. Washington consulted. Patient does have an AV fistula in the left arm from previous. Cell count of PD fluid sent for analysis and pending. 12/19/2020 Patient is seen and evaluated in follow-up this morning stating her abdominal discomfort has somewhat subsided and patient denies any further vomiting. Patient continues to be nauseated at times and continues with pain of the left h ip. Nephrology along with vascular surgery and infectious disease following closely and patient is continued on IV antibiotics. Patient to continue 2 more days of oral Vanco to complete the ten-day course for C. diff. Patient white blood count elevated at 27 with hemoglobin 11.8, sodium is 127 with a potassium of 3.6 and current creatinine is 3.25. Patient is continued on peritoneal dialysis and does have a forearm AV fistula of the left side noted and vascular surgery along with nephrology to discuss using this for hemodialysis or possibly placing a temporary dialysis catheter for hemodialysis while in the outpatient setting at [facility]. Patient having some left arm swelling and ordered a venous Doppler for further assessment and to rule out DVT. Patient clinically appears slightly volume overloaded with some mild lower extremity edema and increasing shortness of breath. Chest x-ray was also ordered today. Patient remains afebrile. Cell count of peritoneal fluid significantly improved. 12/20/2020 Patient is seen in follow-up this morning having some extreme abdominal discomfort associated with nausea and vomiting and this was noted to be after breakfast. Patient states that her left hip pain has subsided. Left upper extremity continues to be edematous and swollen and Doppler was negative that was done yesterday for DVT. Discussion is being had with nephrology and [facility] ular surgery about placement of a permacath for hemodialysis and possibility of using her left forearm AV fistula. Patient continues on peritoneal dialysis and is maintained on IV antibiotics with infectious disease following closely. Repeat urinalysis continues to be positive for urinary tract infection and awaiting repeat cultures to finalized. White blood count continues to be elevated at 20.2 and hemoglobin is stable at 12.2. Sodium is improved at 130 and potassium is 3.5 current creatinine is 3.03. Patient continues on PD exchanges every 6 hours and nephrology is following closely. Hepatitis panel was negative. Patient continues to have hypotension and will increase midodrine. Patient is extremely weak and states she was unable to work with physical therapy today getting up as her legs were extremely unsteady and unable to stand. 1+ pitting edema noted to bilateral lower extremities. 12/23/2020 Patient is seen and evaluated in follow-up this morning extremely lethargic and difficult to arouse and having severe episodes of hypotension requiring fluid bolus. Patient continues on peritoneal dialysis along with IV ceftriaxone and Vfend and will continue. Discussion is being had to go home with hospice and awaiting for accepting hospice and arrangements through case management to be made for hospice in the home setting. Granddaughter who is her power of litigation attorney states there will be people at the home to care for her and stay with her during hospice. Patient is clinically deteriorating and not responding to treatment and is hospice appropriate. No new labs from today. This is a 64-year-old female who was recently admitted with severe abdominal pain and failure of outpatient treatment and being closely monitored. Oncology following and plans are for initiating chemotherapy and educating this week. Patient is known to have history of pancreatic cancer and was seen and evaluated at [facility] and not a surgical candidate. Patient is adamant about going home today. Denies any abdominal discomfort and is tolerating food and encouraged the patient to continue with fluid restrictions of 1200 mL per day and close follow-up with oncology at her scheduled appointment tomorrow. Currently no reports of chest pain, shortness of breath, or palpitations. Patient is afebrile. No reports of nausea or vomiting and patient is tolerating diet. Patient will be discharging home today. Hospice available to come out to the home today and family is accommodating someone to be with her at all times. Patient will be discharged with hospice and comfort measures. Hospice to start comfort measures of Roxanol, Ativan, Levsin as needed. Gen: This is a 85-year-old female extremely lethargic, thin built, ill-appearing HEENT: Head is atraumatic, normocephalic. Pupils equal, round. Sclerae is anicteric. NECK: Supple. No JVD. No lymphadenopathy. No thyromegaly. LUNGS: Diminished breath sounds bilaterally with some scattered rhonchi and crackles noted. No intercostal retractions. HEART: S1, S2 are muffled ABDOMEN: Soft. Bowel sounds are present. No masses. tenderness noted on palpation. EXTREMITIES: No pedal edema. No calf tenderness. NEUROLOGICAL: Patient is awake, alert and oriented x1-2. Diffusely weak. Please refer to medication reconciliation sheet for a list of medications. Patient Condition at Discharge: Poor Plan - Discharge Summary Discharge Rx Participant: No New Discharge Prescriptions: New Gabapentin [Neurontin] 300 mg PO DAILY cap Midodrine [ProAmatine] 10 mg PO AC-TID 30 Days #90 tab LORazepam [Ativan] 0.5 mg PO Q4H PRN #10 tab PRN Reason: Anxiety Cefuroxime Axetil [Ceftin] 500 mg PO BID 5 Days #10 tab Lidocaine 5% Patch [Lidoderm 5% Patch] 1 patch TOPICAL DAILY #10 patch Acetaminophen Tab [Tylenol] 650 mg PO Q6HR PRN tab PRN Reason: Mild Pain Or Fever > 100.5 Voriconazole [Vfend] 200 mg PO Q12HR 5 Days #10 tab Hyoscyamine Elixir [Levsin 0.125MG/ML Drops] 0.125 mg PO Q4H PRN #20 ml PRN Reason: Abdominal Distention MORPHINE ORAL ENEIDA CONC 20mg/mL [Roxanol Oral Soln Conc 20MG/ML] 10 mg PO Q4H PRN 3 Days #9 ml PRN Reason: Pain Continue Levothyroxine Sodium [Synthroid] 75 mcg PO DAILY Meclizine HCl 12.5 mg PO DAILY PRN PRN Reason: DIZZINESS Ibrutinib [Imbruvica] 420 mg PO DAILY Dialyvite 1 tab PO DAILY Atorvastatin [Lipitor] 20 mg PO DAILY Pantoprazole [Protonix] 40 mg PO DAILY Sevelamer [Renvela] 1,600 mg PO Q8H Ondansetron [Zofran ODT] 4 mg PO BID PRN PRN Reason: Nausea Discontinued Gabapentin [Neurontin] 300 mg PO BID Midodrine [ProAmatine] 5 mg PO TID PRN PRN Reason: Low BP Discharge Medication List Levothyroxine Sodium [Synthroid] 75 mcg PO DAILY 12/11/19 [History] Meclizine HCl 12.5 mg PO DAILY PRN 12/11/19 [History] Atorvastatin [Lipitor] 20 mg PO DAILY 12/11/20 [History] Dialyvite 1 tab PO DAILY 12/11/20 [History] Ibrutinib [Imbruvica] 420 mg PO DAILY 12/11/20 [History] Ondansetron [Zofran ODT] 4 mg PO BID PRN 12/11/20 [History] Pantoprazole [Protonix] 40 mg PO DAILY 12/11/20 [History] Sevelamer [Renvela] 1,600 mg PO Q8H 12/11/20 [History] Acetaminophen Tab [Tylenol] 650 mg PO Q6HR PRN tab 12/23/20 [Rx] Cefuroxime Axetil [Ceftin] 500 mg PO BID 5 Days #10 tab 12/23/20 [Rx] Gabapentin [Neurontin] 300 mg PO DAILY cap 12/23/20 [Rx] Hyoscyamine Elixir [Levsin 0.125MG/ML Drops] 0.125 mg PO Q4H PRN #20 ml 12/23/20 [Rx] LORazepam [Ativan] 0.5 mg PO Q4H PRN #10 tab 12/23/20 [Rx] Lidocaine 5% Patch [Lidoderm 5% Patch] 1 patch TOPICAL DAILY #10 patch 12/23/20 [Rx] MORPHINE ORAL ENEIDA CONC 20mg/mL [Roxanol Oral Soln Conc 20MG/ML] 10 mg PO Q4H PRN 3 Days #9 ml 12/23/20 [Rx] Midodrine [ProAmatine] 10 mg PO AC-TID 30 Days #90 tab 12/23/20 [Rx] Voriconazole [Vfend] 200 mg PO Q12HR 5 Days #10 tab 12/23/20 [Rx] Follow up Appointment(s)/Referral(s): Deon Ray MD [Primary Care Provider] - 1 Week Patient Instructions/Handouts: Hospice (DC) Activity/Diet/Wound Care/Special Instructions: Patient is going home with hospice Activity as tolerated Diet as tolerated Discharge Disposition: HOME WITH HOSPICE
--- NOTE | 2021-01-22 10:00 | ECHOF ---
Referral Reason:chf MEASUREMENTS -------- HEIGHT: 0.0 cm WEIGHT: 0.0 kg BP: RVIDd: 2.2 cm (< 3.3) IVSd: 1.2 cm (0.6 - 1.1) LVIDd: 3.1 cm (3.9 - 5.3) LVPWd: 1.3 cm (0.6 - 1.1) IVSs: 1.6 cm LVIDs: 1.4 cm LVPWs: 1.5 cm LA Diam: 1.1 cm (2.7 - 3.8) Ao Diam: 3.1 cm (2.0 - 3.7) AV Cusp: 1.8 cm (1.5 - 2.6) LA Diam: 3.3 cm (2.7 - 3.8) MV EXCURSION: 10.412 mm (> 18.000) MV EF SLOPE: 43 mm/s (70 - 150) EPSS: 0.4 cm MV E Fadi: 1.22 m/s MV DecT: 153 ms MV A Fadi: 0.47 m/s MV E/A Ratio: 2.61 RAP: 5.00 mmHg RVSP: 12.32 mmHg FINDINGS -------- This was a technically good study. The left ventricular size is normal. There is mild concentric left ventricular hypertrophy. Overa ll left ventricular systolic function is normal with, an EF between 55 - 60 %. The right ventricle is normal in size. The global wall thickness of the right ventricle is moderate ly enlarged. The left atrial size is normal. The right atrial size is normal. Aortic valve is trileaflet and is mildly thickened. The mitral valve is normal. The mitral valve leaflets are mildly thickened. Mild mitral regurgita tion is present. The tricuspid valve appears structurally normal. Mild tricuspid regurgitation present. Right vent ricular systolic pressure is normal at < 35 mmHg. There is no pulmonic regurgitation present. The aortic root size is normal. IVC Not well visulized. There is a trivial pericardial effusion present. CONCLUSIONS -------- 1. The left ventricular size is normal. 2. There is mild concentric left ventricular hypertrophy. 3. Overall left ventricular systolic function is normal with, an EF between 55 - 60 %. 4. The global wall thickness of the right ventricle is moderately enlarged. 5. Aortic valve is trileaflet and is mildly thickened. 6. The mitral valve leaflets are mildly thickened. 7. Mild mitral regurgitation is present. 8. Mild tricuspid regurgitation present. 9. There is a trivial pericardial effusion present. CUT ROLL MACHINE OPERATOR: Laya Hodge RDCS
== END 2020-12-23 17:30 | disposition hospice, home (50) | DRG 919 ==
LOC: EC 01:30 → 5NMEDONC 01:40
PROVIDERS: ADMIT Hospitalist; ATTEND Hospitalist
PROC: 3E1M39Z Irrigation of Peritoneal Cavity using Dialysate, Percutaneous Approach (ICD-10-PCS; principal; 2020-12-11)
DX: T85.71XA Infection and inflammatory reaction due to peritoneal dialysis catheter, initial encounter (principal); G93.41 Metabolic encephalopathy; K65.0 Generalized (acute) peritonitis; N18.6 End stage renal disease; A41.59 Other Gram-negative sepsis; A04.72 Enterocolitis due to Clostridium difficile, not specified as recurrent; E87.1 Hypo-osmolality and hyponatremia; I12.0 Hypertensive chronic kidney disease with stage 5 chronic kidney disease or end stage renal disease; J44.1 Chronic obstructive pulmonary disease with (acute) exacerbation; J90 Pleural effusion, not elsewhere classified; N39.0 Urinary tract infection, site not specified; R18.8 Other ascites; C25.9 Malignant neoplasm of pancreas, unspecified; D69.6 Thrombocytopenia, unspecified; E03.9 Hypothyroidism, unspecified; M06.9 Rheumatoid arthritis, unspecified; M47.9 Spondylosis, unspecified; Z20.822 Contact with and (suspected) exposure to COVID-19; Z66 Do not resuscitate; Z51.5 Encounter for palliative care; E83.9 Disorder of mineral metabolism, unspecified; Z99.81 Dependence on supplemental oxygen; Z99.2 Dependence on renal dialysis; D63.1 Anemia in chronic kidney disease; Y83.8 Other surgical procedures as the cause of abnormal reaction of the patient, or of later complication, without mention of misadventure at the time of the procedure; F41.9 Anxiety disorder, unspecified; Y84.8 Other medical procedures as the cause of abnormal reaction of the patient, or of later complication, without mention of misadventure at the time of the procedure; B96.20 Unspecified Escherichia coli [E. coli] as the cause of diseases classified elsewhere; Z79.890 Hormone replacement therapy; Z79.899 Other long term (current) drug therapy; Z80.0 Family history of malignant neoplasm of digestive organs; Z80.1 Family history of malignant neoplasm of trachea, bronchus and lung; E86.1 Hypovolemia; Z80.6 Family history of leukemia; E87.6 Hypokalemia; R26.9 Unspecified abnormalities of gait and mobility; E83.42 Hypomagnesemia; Z96.652 Presence of left artificial knee joint; E87.70 Fluid overload, unspecified; Z98.890 Other specified postprocedural states; Z80.3 Family history of malignant neoplasm of breast; Z80.8 Family history of malignant neoplasm of other organs or systems; Z90.49 Acquired absence of other specified parts of digestive tract; Z90.89 Acquired absence of other organs
CPT/HCPCS: 70450; 71045; 73521; 74176; 80048; 80053; 80074; 81001; 82533; 83690; 83735; 84100; 84132; 84145; 84439; 84443; 85025; 86140; 86706; 87040; 87070; 87077; 87086; 87186; 87205; 87324; 87635; 89050; 93005; 93306; 94760; 96365; 96375; 99285